=== PATIENT | female | born 1955 | race Caucasian/White ===

== ENCOUNTER → 2018-01-03 | Outpatient (CLI) | payer OTHER ==
[~2018-01-03] MED LIST: ACET-1138 PO; ASPI81TA28 PO; ATOR-24 PO; BUPRTAB PO; BUPRTAB51 PO; CLB200 PO; DYZ PO; EFFSR150 PO; ERGO500011 PO; GLUC15002 PO; LYSI100010 PO; MULT-506 PO; OMEP20CA9 PO; OXYSR10 PO; RXC5 PO; SNK PO; TEMA15CA4 PO
--- NOTE | 2018-01-06 14:50 | MAMMOGRAPHY REPORT ---
BILATERAL DIGITAL SCREENING MAMMOGRAM TOMOSYNTHESIS WITH CAD: 01/03/2018 CLINICAL HISTORY: Routine screening. TECHNIQUE: Breast tomosynthesis in addition to standard 2D mammography was performed. Current study was also evaluated with a Computer Aided Detection (CAD) system. COMPARISON: Comparison is made to exams dated: 08/21/2016 mammogram, 03/29/2015 mammogram, 01/04/2014 m ammogram, 10/10/2012 mammogram, 10/04/2011 mammogram, and 05/08/2010 mammogram - [facility]. BREAST COMPOSITION: There are scattered areas of fibroglandular density in both breasts. FINDINGS: No suspicious masses, calcifications, or areas of architectural distortion are noted in ei ther breast. There has been no significant interval change compared to prior exams. IMPRESSION: ACR BI-RADS CATEGORY 1: NEGATIVE There is no mammographic evidence of malignancy. A 1 year screening mammogram is recommended. The pa tient will receive written notification of the results. Approximately 10% of breast cancers are not detected with mammography. A negative mammographic report should not delay biopsy if a clinically suggestive mass is present. Cynthia Mitchell M.D. /:01/03/2018 15:21:24 [employer]: Doris JACOBS(Leslie)(M), [facility] letter sent: Normal 1/2 BI-RADS Code: ACR BI-RADS Category 1: Negative
== END | disposition home or self-care (01) ==
LOC: C.MAMM 14:32
PROVIDERS: ATTEND Family Medicine
DX: Z12.31 Encounter for screening mammogram for malignant neoplasm of breast (principal)

== ENCOUNTER 2020-03-19 18:59 | Inpatient (IN) ==
[2020-03-19] MEDS ORDERED: OPTIRAY 320 125ml IV PRN (19:35)
[2020-03-19 19:36] LABS: Basophils # (auto) 0.09 K/uL (0-0.2); Eosinophils # (auto) 0.23 K/uL (0-0.5); Eosinophils % (auto) 2.6 %; Hematocrit (blood only) 41.1 % (37-47); Hemoglobin 13.8 g/dL (12.0-16.0); Immature Granulocytes # (auto) 0.01 K/uL (0.00-0.02); Immature Granulocytes % (auto) 0.1 %; Lymphocytes # (auto) 3.44 K/uL (1.2-3.4); Lymphocytes % (auto) 38.7 %; Mean Corpuscular Hemoglobin 33.3 pg (25-34); Mean Corpuscular Hgb Conc 33.6 g/dL (32-36); Mean Corpuscular Volume 99.3 fL (80-100); Mean Platelet Volume 8.9 fL (7.4-10.4); Monocytes # (auto) 0.62 K/uL (0.11-0.59); Neutrophils # (auto) 4.51 K/uL (1.4-6.5); Neutrophils % (auto) 50.6 %; Platelet Count 367 K/uL (130-400); RDW Coefficient of Variation 13.3 % (11.5-14.5); RDW Standard Deviation 48.2 fL (36.4-46.3); Red Blood Count 4.14 M/uL (4.2-5.4)
[2020-03-19 19:43] LABS: INR 0.9 (0.9-1.1); Partial Thromboplastin Ratio 1.2; Partial Thromboplastin Time 32.2 Seconds (21.0-31.0); Prothrombin Time 9.9 Seconds (9.0-12.0)
[2020-03-19 19:45] LABS: Alanine Aminotransferase 28 U/L (12-78); Albumin Level 4.1 gm/dl (3.4-5.0); Aspartate Aminotransferase 11 U/L (15-37); BUN Creatinine Ratio 20.9 (10-20); Blood Urea Nitrogen 25 mg/dl (7-18); Calcium 8.7 mg/dl (8.5-10.1); Carbon Dioxide 27 mmol/L (21-32); Chloride 108 mmol/L (98-107); Creatinine Clr Calc Pharmacy 53.1 ml/min; Est GFR (African American) 54.6; Est GFR (Non-African American) 47.1; Glucose 66 mg/dl (70-99); Magnesium 2.4 mg/dl (1.8-2.4); Potassium 3.7 mmol/L (3.5-5.1); Sodium 141 mmol/L (136-145)
--- NOTE | 2020-03-19 19:47 | CT Scan Report ---
CT head/brain wo con CLINICAL HISTORY: Stroke evaluation RIGHT FACIAL DROOP. DIFFICULTY SPEAKING. COMPARISON STUDY: No previous studies for comparison. TECHNIQUE: Axial CT of the brain is performed from the vertex to the skull base. IV contrast was not administered for this examination. A dose lowering technique was utilized adhering to the principles of ALARA. CT DOSE: FINDINGS: No intra or extra-axial mass lesions are visualized. There is no CT evidence of acute cortical infarc tion. There is no evidence of midline shift. There is no acute hemorrhage. No calvarial fractures ar e visualized. There are patchy white matter hypodensities likely on a small vessel basis. There is no evidence of pathologic ventricular dilatation. There is no evidence of acute sinusitis IMPRESSION: No acute intracranial findings ACT 112: Negative or not required by law. Electronically signed by: Carlton Nieto M.D. 03/19/2020 7:45 PM
[2020-03-19 19:50] LABS: Albumin Globulin Ratio 1.1 (0.9-2); Alkaline Phosphatase 97 U/L (45-117); Bilirubin,Total 0.2 mg/dl (0.2-1); Globulin 3.7 gm/dl (2.5-4.0); Total Protein 7.8 gm/dl (6.4-8.2); Troponin I < 0.015 ng/ml (0-0.045)
--- NOTE | 2020-03-19 19:50 | CT Scan Report ---
CT angio head w con CLINICAL HISTORY: Stroke evaluation TECHNIQUE: CT angiography of the head was performed in a dynamic helical fashion during intravenous a dministration of 117 cc of Optiray 320. MIP imaging was performed. A dose lowering technique was util ized adhering to the principles of ALARA. CT DOSE: COMPARISON STUDY: No previous studies for comparison. FINDINGS: There are no lesion suspicious for aneurysm. There are no major intracranial branch occlusi ons. The dural venous sinuses appear patent. IMPRESSION: Unremarkable CT angiography of the brain. ACT 112: Negative or not required by law. Electronically signed by: Carlton Nieto M.D. 03/19/2020 7:49 PM
[2020-03-19] MEDS ORDERED: METOCLOPRAMIDE HCL INJ 5 MG/ML 2 ML VIAL IV ONE (19:58)
[2020-03-19] MEDS ORDERED: DiphenhydrAMINE HCL 50 MG/ML VIAL IV STA (19:58)
--- NOTE | 2020-03-19 19:58 | CT Scan Report ---
CT angio neck with con CLINICAL HISTORY: Acute stroke. Right-sided facial droop. Difficulty with speech. COMPARISON STUDY: No previous studies for comparison. TECHNIQUE: CT angiography was performed from the aortic arch to the skull base. MIP imaging was perfo rmed. The patient was scanned in a dynamic helical fashion during intravenous administration of 117 c c of Optiray 320. A dose lowering technique was utilized adhering to the principles of ALARA. CT DOSE: 1045.74 mGy.cm Technique: CT angiogram of the carotid and vertebral arteries was obtained using intravenous contrast and 3-D reconstruction. NASCET criteria was utilized. Findings: There are apical pulmonary blebs present. The right carotid revealed no evidence of aneurysm and no evidence of dissection. There is no evidenc e of hemodynamic significant stenosis. The left carotid revealed no evidence of hemodynamic significant stenosis. There is no evidence of an eurysm. There is no evidence of dissection. There is no evidence of vertebral artery occlusion or dissection. There is mild nonhemodynamically si gnificant left vertebral artery narrowing at the C5 level due to facet joint arthropathy. IMPRESSION: No evidence of hemodynamically significant carotid or vertebral artery stenosis. No evidence of disse ction. ACT 112: Negative or not required by law. Electronically signed by: Carlton Nieto M.D. 03/19/2020 7:56 PM
--- NOTE | 2020-03-19 20:25 | XRay Report ---
XR chest 1V portable CLINICAL HISTORY: Acute stroke COMPARISON STUDY: 05/28/2016 FINDINGS: The heart is mildly enlarged. There is no failure. There is no focal pulmonary consolidatio n. There is minor left midlung zone atelectasis/scarring. No pleural effusions are visualized.[ IMPRESSION: No active disease in the chest. ACT 112: Negative or not required by law. Electronically signed by: Carlton Nieto M.D. 03/19/2020 8:24 PM
[2020-03-19] MEDS ORDERED: PHARMACIST DISCHARGE MED REC CONSULT PRN (21:32)
[2020-03-19] MEDS ORDERED: ONDANSETRON INJ 2 MG/ML 2 ML VIAL IV PRN (21:32)
[2020-03-19] MEDS ORDERED: NITROGLYCERIN SL 0.4 MG/TAB TAB SL PRN (21:32)
[2020-03-19] MEDS ORDERED: ROSUVASTATIN CALCIUM 5 MG TAB PO SCH (21:32)
[2020-03-19] MEDS ORDERED: CLOPIDOGREL BISULFATE 75 MG TAB PO ONE (21:32)
[2020-03-19] MEDS ORDERED: FLUTICASONE PROPIONATE NA SPR 16 GM BTL PRN (21:32)
[2020-03-19] MEDS ORDERED: ACETAMINOPHEN 325 MG TAB PO PRN (21:32)
--- NOTE | 2020-03-19 22:29 | History and Physical Report ---
DATE OF ADMISSION: 03/19/2020 CHIEF COMPLAINT: Slurred speech. 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 The patient says she noticed the slurred speech around 1:30 p.m. her colleagues told her to go to the ER and she came here in the evening and stroke alert was called. Apart from the mild slurred speech and some left facial droops, otherwise, no other symptoms. CT of the head was unremarkable. CTA of the head and neck were also okay. Because of out of the window no TPA was not given. Currently, patient is resting comfortably and hemodynamically stable. She complains of a headache. Denies any blurred vision, no earache, no runny nose, no sore throat, no cough, no chest pain, no shortness of breath, no fever, no chills, no sick contacts, no contact with COVID patients. No loss of smell or taste. No travel history. No nausea, no abdominal pain. Normal bowel and bladder movements. No hematuria or burning micturition, no black or blood in stools. No rash, no swelling in the legs. Otherwise, active. ALLERGIES: No known drug allergies. PAST MEDICAL HISTORY: As mentioned above. PAST SURGICAL HISTORY: , colonoscopy with biopsy, ligation of oviducts, right total knee replacement. MEDICATIONS: The patient is on aspirin 81 mg p.o. q.a.m., Tylenol 1000 mg p.o. q. 6 hours p.r.n., bupropion 300 mg p.o. a.m. and bupropion 150 mg p.o. a.m., vitamin D 50,000 units p.o. weekly, Flonase 2 sprays intranasal daily p.r.n., Ativan 0.5 mg p.o. t.i.d. p.r.n., lysine 500 mg p.o. a.m., multivitamins 1 tablet a.m., omeprazole 40 mg p.o. a.m., Crestor 5 mg p.o. at bedtime, temazepam 30 mg p.o. at bedtime, tramadol 50 mg p.o. q. 6 hours p.r.n., triamterene/hydrochlorothiazide 37.5/25 mg 1 tablet daily, valacyclovir 2000 mg p.o. q. 12 hours p.r.n., venlafaxine 150 mg p.o. at bedtime. FAMILY HISTORY: Significant for her mother has dementia, thyroid disorder, hypertension, stroke. Father has OK. Sister has diabetes, heart disorder, kidney disease. SOCIAL HISTORY: Lives alone, . Smokes 1 pack a day for the last 25 years. No alcohol use, no drug use. REVIEW OF SYMPTOMS: As per HPI. Rest of review of symptoms are negative. PHYSICAL EXAMINATION: GENERAL: The patient is obese, not in acute distress. VITAL SIGNS: Temperature 36.9, pulse 96, respiratory rate 18, blood pressure 142/79, oxygen 95% on room air. HEENT: No pallor, no icterus. Pupils equal, round, and reactive to light. NECK: No JVD, no neck masses, no carotid bruits. CARDIOVASCULAR: S1, S2 heard, regular rate and rhythm, no murmur, no gallop. RESPIRATORY SYSTEM: Normal AP diameter. No accessory muscle use. No wheezing, no crackles. ABDOMEN: Soft, bowel sounds present, nontender. No distention. CENTRAL NERVOUS SYSTEM: Alert and oriented. Extraocular muscles intact. Slight left facial droop. Speech mild dysarthria present. Power 5/5 in all extremities. No pronator drift. Coordination of movements normal. [id number] test normal. Sensation is intact. Position sense intact. EXTREMITIES: No edema, no erythema. LABORATORY DATA: WBC 8.9, hemoglobin 13.8, hematocrit 41.1, platelets 367. PT 9.9, INR 0.9, APTT 32.2. Sodium 141, potassium 3.7, chloride 108, bicarbonate 27, BUN 25, creatinine 1.2, serum glucose 66, calcium 8.7, magnesium 2.4, total bilirubin 0.2, AST 11, ALT 28, alkaline phosphatase 97. Troponin I less than 0.015. Chest x-ray: No acute disease in the chest. EKG: Normal sinus rhythm, rate of 96, nonspecific T-wave abnormality, no acute ST changes seen. IMAGING: CT of the head, no acute intracranial findings. Head CTA unremarkable CT angiogram of the brain. Neck CTA, no evidence of hemodynamically significant carotid or vertebral artery stenosis. No evidence of aortic dissection. ASSESSMENT AND PLAN: A 65-year-old female presents with stroke like symptoms. 1. Possible acute stroke with dysarthria and mild left facial droop: Initial workup with CTA of the head and neck are unremarkable. The patient's symptoms started at 1:30 so she is out of the window for TPA. She is already on aspirin, which we will continue and also add Plavix. We will do full stroke workup with MRI scan, lipid profile, HbA1c level. Echocardiogram. Monitor in tele floor. Speech evaluation, PT, OT evaluation, consult neurology in a.m. for further recommendations. The patient was slightly hypoglycemic when she came in. We will monitor the blood sugars. 2. Acute kidney injury: Presently with a creatinine of 1.2, BUN 25, baseline creatinine 0.9-1.0 in outpatient labs. Getting fluids. We will follow the labs in a.m. 3. Mild sleep apnea. CPAP at bedtime. 4. Hypertension. We will allow for permissive hypertension. For now will hold home medication of Maxzide. 5. Gastroesophageal reflux disease: Continue PPI. 6. Hyperlipidemia. Continue Crestor. We will follow the fasting lipid profile. 7. Obesity. Needs counseling. 8. Major depression, tobacco abuse. Needs counseling. Continue home medication of venlafaxine and Wellbutrin. 9. Deep venous thrombosis prophylaxis, sequential compression devices for now. 10. Disposition: Closely monitor on the tele floor. Level 1 full code. PT and OT prior to discharge. Social Service to help with discharge planning. [facility]
[2020-03-19] MEDS: SODIUM CHLORIDE 0.9% 1000ML 1,000 ML IV SCH (22:33)
[2020-03-19] MEDS: VENLAFAXINE HCL XR 150 MG CAPXR PO SCH (22:34)
[2020-03-19] MEDS: TEMAZEPAM 15 MG CAPSULE PO SCH (22:35)
--- NOTE | 2020-03-19 23:49 | Emergency Department Note ---
History of Present Illness General Chief complaint: Neuro Symptoms/Deficit Stated complaint: STROKE SX Time Seen by Provider: 03/19/20 19:25 History of Present Illness Provider complaint: Headache and slurred speech Onset (ago): hour(s) 6 Location: head Maximum Pain Intensity: 4 65-year-old female presents the emergency department with headache and slurred speech. 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 She denies any chest pain, difficulty breathing, nausea, vomiting, fever, trauma, anosmia, or loss of taste. She is not on any blood thinners. No history of stroke. Home Medications Home Medications Medication Instructions Recorded Confirmed Type acetaminophen 1,000 mg PO Q6H PRN 03/19/20 03/19/20 History aspirin 81 mg PO QAM 03/19/20 03/19/20 History bupropion HCl 150 mg PO QAM 03/19/20 03/19/20 History bupropion HCl 300 mg PO QAM 03/19/20 03/19/20 History ergocalciferol (vitamin D2) 50,000 unit PO WK 03/19/20 03/19/20 History fluticasone propionate 2 spray INTRANASAL DAILY PRN 03/19/20 03/19/20 History lorazepam 0.5 mg PO TID PRN 03/19/20 03/19/20 History lysine 500 mg PO QAM 03/19/20 03/19/20 History [id number]-Ca carb-vit K 1 tab PO QA 03/19/20 03/19/20 History [Women's Multivitamin] omeprazole 40 mg PO QAM 03/19/20 03/19/20 History rosuvastatin 5 mg PO HS 03/19/20 03/19/20 History temazepam 30 mg PO HS 03/19/20 03/19/20 History tramadol 50 mg PO Q6H PRN 03/19/20 03/19/20 History triamterene-hydrochlorothiazid 1 tab PO QAM 03/19/20 03/19/20 History valacyclovir 2,000 mg PO Q12H PRN 03/19/20 03/19/20 History venlafaxine 150 mg PO HS 03/19/20 03/19/20 History Allergies Allergy/AdvReac Type Severity Reaction Status Date / Time phenylephrine AdvReac Unknown Palpitation Verified 03/19/20 20:43 s Past Med/Surg History Medical History (Updated 03/19/20 @ 23:50 by Dontrell Farnsworth) Depression (Chronic) HTN (hypertension) (Chronic) No pertinent family history Surgical History (Updated 03/19/20 @ 23:42 by Dontrell Farnsworth) H/O section (Chronic) Social History Preferred Language: Maltese Communication Ability: Effective Clinical Program Coordinator Required: No Beliefs That Will Affect Care: None Current Living Situation: Alone Other Information That Helps Us Care for You: No Feels Safe at Home: Yes Safety Concerns: Feels Safe At This Time Smoking Status: Current every day smoker Tobacco Type: cigarettes ; Cigarettes Per Day: 10 ; Do You Dip or Chew Tobacco: No ; Second Hand Exposure: No ; Tobacco Cessation Education Requested by Patient: No Hx Alcohol Use: No Hx Substance Use: No Review of Systems A total of 10 systems reviewed and were otherwise negative Physical Exam Vital Signs Vital Signs - 24 hr 03/19/20 19:11 03/19/20 19:30 03/19/20 19:46 Temperature 36.9 C Temperature Source Oral Pulse Rate 93 H 91 H 96 H Pulse Rate from SpO2 Sensor 89 95 H Respiratory Rate 20 21 21 Respiratory Effort / Characteristics Non-Labored Respiratory Depth Normal Blood Pressure 127/77 139/80 142/79 H Blood Pressure Mean 93 107 96 Pulse Oximetry 95 93 96 Oxygen Delivery Method Room Air Room Air Room Air Sepsis Recent Fever Within 48 Hours No Sepsis New/Unexplained Change in Mental Status No Sepsis Action Taken by Nursing No Action Required 03/19/20 19:50 03/19/20 19:56 03/19/20 20:00 Temperature Temperature Source Pulse Rate 93 H 90 Pulse Rate from SpO2 Sensor 90 Respiratory Rate 16 21 Respiratory Effort / Characteristics Respiratory Depth Blood Pressure 133/72 136/84 Blood Pressure Mean 77 103 Pulse Oximetry 95 96 Oxygen Delivery Method Room Air Sepsis Recent Fever Within 48 Hours Sepsis New/Unexplained Change in Mental Status Sepsis Action Taken by Nursing 03/19/20 20:15 03/19/20 20:30 03/19/20 20:45 Temperature Temperature Source Pulse Rate 90 87 84 Pulse Rate from SpO2 Sensor 89 84 Respiratory Rate 22 18 21 Respiratory Effort / Characteristics Respiratory Depth Blood Pressure 131/76 139/82 132/73 Blood Pressure Mean 94 92 89 Pulse Oximetry 95 97 Oxygen Delivery Method Sepsis Recent Fever Within 48 Hours Sepsis New/Unexplained Change in Mental Status Sepsis Action Taken by Nursing Physical Exam GENERAL: She is oriented to person, place, and time. She appears well-developed and well-nourished. She does not appear distressed. HENT: Exam performed. -Head: Normocephalic and atraumatic. -Right Ear: External ear normal. No mastoid tenderness. -Left Ear: External ear normal. No mastoid tenderness. -Mouth/Throat: The oropharynx is clear and moist. No trismus in the jaw. No dental abscesses or uvula swelling. No oropharyngeal exudate or tonsillar abscesses. EYES: Conjunctivae and EOM are normal. Pupils are equal, round, and reactive to light. Right eye exhibits no discharge. Left eye exhibits no discharge. No scleral icterus. NECK: Normal range of motion. Neck supple. No JVD present. No spinous process tenderness present. No carotid bruit present. No rigidity. No tracheal deviation and normal range of motion present. No Brudzinski's sign and no Kernig's sign noted. CV: Normal rate, regular rhythm, normal heart sounds and intact distal pulses. There is no peripheral edema. Palpable radial pulses bue. PULM/CHEST: Effort normal and breath sounds normal. No respiratory distress. No stridor. She has no wheezes. She has no rales. -Chest Wall: She exhibits no tenderness. ABD: The abdomen is soft. Bowel sounds are normal. She has no distension. No mass is present. There is no tenderness. There is no rebound, no guarding, no Aparicio's sign and no tenderness at McBurney's point. Rovsig negative MUSC/SKEL: Normal range of motion. There is no peripheral edema, tenderness or deformity. LYMPH: No cervical adenopathy. NEURO: NIHSS: 3 (facial droop 2, dysarthria 1) SKIN: Skin is warm and dry. She is not diaphoretic. PSYCH: She has a normal mood and affect. Behavior is normal. Judgment and thought content normal. Course Course 1927: The patient was evaluated in room C9. A complete history and physical exam was performed. Patient has NIH stroke scale of 3, facial droop and dysarthria. Code stroke was called. 1938: Discussed with [place] tele-stroke Dr. Ambrose who states that the patient is out of the TPA window and her NIH stroke scale is too low to be considered for endovascular therapy. She states that if the CTAs show any significant occlusion to call her back and she will evaluate the patient but at this time she recommends no TPA and no endovascular intervention. 2009: Vital signs stable. Labs and imaging within normal limits. Patient reports her headache is improved with Reglan and Benadryl. Patient does still have facial droop and dysarthria. Is thought that she had a stroke. Patient will be admitted to the [facility] team. Dr. Dutta agrees to admission. Administered Medications Sodium Chloride (Nss 1000ml) 1,000 mls @ 80 mls/hr IV .[id number] REJI Stop: 03/20/20 16:59 Last Admin: 03/19/20 22:33 Dose: 80 mls/hr Documented by: [id number] Rosuvastatin Calcium (Crestor) 5 mg PO HS REJI Stop: 04/18/20 21:31 Last Admin: 03/19/20 22:34 Dose: Not Given Documented by: [id number] Temazepam (Restoril) 30 mg PO HS REJI Stop: 04/18/20 21:31 Last Admin: 03/19/20 22:35 Dose: Not Given Documented by: [id number] Venlafaxine HCl (Effexor Extended Release) 150 mg PO HS REJI Stop: 04/18/20 21:31 Last Admin: 03/19/20 22:34 Dose: Not Given Documented by: [id number] Discontinued Medications Clopidogrel Bisulfate (Plavix) 75 mg PO NOW ONE Stop: 03/19/20 21:33 Last Admin: 03/19/20 22:34 Dose: Not Given Documented by: [id number] Diphenhydramine HCl (Benadryl) 25 mg IV NOW STA Stop: 03/19/20 19:59 Last Admin: 03/19/20 20:03 Dose: 25 mg Documented by: [id number] Ioversol (Optiray 320 125ml) 117 ml IV ONCE PRN PRN Reason: Interaction Checking Stop: 03/23/20 19:34 Last Admin: 03/19/20 19:35 Dose: 117 ml Documented by: [id number] Metoclopramide HCl (Reglan) 5 mg IV ONE ONE Stop: 03/19/20 19:59 Last Admin: 03/19/20 20:03 Dose: 5 mg Documented by: [id number] Critical Care Time Critical Care Time: Yes Total Critical Care Time: 40 I have personally spent greater than 40 minutes of critical care time in the direct management of this patient. This includes bedside care, interpretation of diagnostic studies, and testing, discussion with consultants, patient, and family members, and other required patient management activities. This 40 minutes is in excess of all separately billable procedures. Medical Decision Making Laboratory Data Result diagrams: 03/19/20 18:43 03/19/20 18:43 Lab Results 03/19/20 03/19/20 03/19/20 Range/Units 18:43 18:43 18:43 WBC 8.90 (4.8-10.8) K/uL RBC 4.14 L (4.2-5.4) M/uL Hgb 13.8 (12.0-16.0) g/dL Hct 41.1 (37-47) % MCV 99.3 (80-100) fL MCH 33.3 (25-34) pg MCHC 33.6 (32-36) g/dL RDW Std Deviation 48.2 H (36.4-46.3) fL RDW Coeff of Eamon 13.3 (11.5-14.5) % Plt Count 367 (130-400) K/uL MPV 8.9 (7.4-10.4) fL Immature Gran % (Auto) 0.1 % Neut % (Auto) 50.6 % Lymph % (Auto) 38.7 % [place] % (Auto) 7.0 % Eos % (Auto) 2.6 % Baso % (Auto) 1.0 % Immature Gran # (Auto) 0.01 (0.00-0.02) K/uL Neut # (Auto) 4.51 (1.4-6.5) K/uL Lymph # (Auto) 3.44 H (1.2-3.4) K/uL [place] # (Auto) 0.62 H (0.11-0.59) K/uL Eos # (Auto) 0.23 (0-0.5) K/uL Baso # (Auto) 0.09 (0-0.2) K/uL PT 9.9 (9.0-12.0) Seconds INR 0.9 (0.9-1.1) APTT 32.2 H (21.0-31.0) Seconds PTT Ratio 1.2 Sodium 141 (136-145) mmol/L Potassium 3.7 (3.5-5.1) mmol/L Chloride 108 H (98-107) mmol/L Carbon Dioxide 27 (21-32) mmol/L Anion Gap 6.0 (3-11) BUN 25 H (7-18) mg/dl Creatinine 1.22 H (0.6-1.2) mg/dl Est Cr Clr Drug Dosing 53.1 ml/min Est GFR ( Amer) 54.6 Est GFR (Non-Af Amer) 47.1 BUN/Creatinine Ratio 20.9 H (10-20) Glucose 66 L (70-99) mg/dl POC Glucose (70-99) mg/dl Calcium 8.7 (8.5-10.1) mg/dl Magnesium 2.4 (1.8-2.4) mg/dl Total Bilirubin 0.2 (0.2-1) mg/dl AST 11 L (15-37) U/L ALT 28 (12-78) U/L Alkaline Phosphatase 97 (45-117) U/L Troponin I < 0.015 (0-0.045) ng/ml Total Protein 7.8 (6.4-8.2) gm/dl Albumin 4.1 (3.4-5.0) gm/dl Globulin 3.7 (2.5-4.0) gm/dl Albumin/Globulin Ratio 1.1 (0.9-2) Blood Type Antibody Screen 03/19/20 03/19/20 Range/Units 19:45 19:47 WBC (4.8-10.8) K/uL RBC (4.2-5.4) M/uL Hgb (12.0-16.0) g/dL Hct (37-47) % MCV (80-100) fL MCH (25-34) pg MCHC (32-36) g/dL RDW Std Deviation (36.4-46.3) fL RDW Coeff of Eamon (11.5-14.5) % Plt Count (130-400) K/uL MPV (7.4-10.4) fL Immature Gran % (Auto) % Neut % (Auto) % Lymph % (Auto) % [place] % (Auto) % Eos % (Auto) % Baso % (Auto) % Immature Gran # (Auto) (0.00-0.02) K/uL Neut # (Auto) (1.4-6.5) K/uL Lymph # (Auto) (1.2-3.4) K/uL [place] # (Auto) (0.11-0.59) K/uL Eos # (Auto) (0-0.5) K/uL Baso # (Auto) (0-0.2) K/uL PT (9.0-12.0) Seconds INR (0.9-1.1) APTT (21.0-31.0) Seconds PTT Ratio Sodium (136-145) mmol/L Potassium (3.5-5.1) mmol/L Chloride (98-107) mmol/L Carbon Dioxide (21-32) mmol/L Anion Gap (3-11) BUN (7-18) mg/dl Creatinine (0.6-1.2) mg/dl Est Cr Clr Drug Dosing ml/min Est GFR ( Amer) Est GFR (Non-Af Amer) BUN/Creatinine Ratio (10-20) Glucose (70-99) mg/dl POC Glucose 78 (70-99) mg/dl Calcium (8.5-10.1) mg/dl Magnesium (1.8-2.4) mg/dl Total Bilirubin (0.2-1) mg/dl AST (15-37) U/L ALT (12-78) U/L Alkaline Phosphatase (45-117) U/L Troponin I (0-0.045) ng/ml Total Protein (6.4-8.2) gm/dl Albumin (3.4-5.0) gm/dl Globulin (2.5-4.0) gm/dl Albumin/Globulin Ratio (0.9-2) Blood Type A Positive Antibody Screen NEGATIVE Imaging Data Radiologist's Impression: CT angio neck with con CLINICAL HISTORY: Acute stroke. Right-sided facial droop. Difficulty with speech. COMPARISON STUDY: No previous studies for comparison. TECHNIQUE: CT angiography was performed from the aortic arch to the skull base. MIP imaging was performed. The patient was scanned in a dynamic helical fashion during intravenous administration of 117 cc of Optiray 320. A dose lowering technique was utilized adhering to the principles of ALARA. CT DOSE: 1045.74 mGy.cm Technique: CT angiogram of the carotid and vertebral arteries was obtained using intravenous contrast and 3-D reconstruction. NASCET criteria was utilized. Findings: There are apical pulmonary blebs present. The right carotid revealed no evidence of aneurysm and no evidence of dissection. There is no evidence of hemodynamic significant stenosis. The left carotid revealed no evidence of hemodynamic significant stenosis. There is no evidence of aneurysm. There is no evidence of dissection. There is no evidence of vertebral artery occlusion or dissection. There is mild nonhemodynamically significant left vertebral artery narrowing at the C5 level due to facet joint arthropathy. IMPRESSION: No evidence of hemodynamically significant carotid or vertebral artery stenosis. No evidence of dissection. ACT 112: Negative or not required by law. Electronically signed by: Carlton Nieto M.D. 03/19/2020 7:56 PM Dictated: 03/19/201949 Transcribed: 03/19/201949 CT angio head w con CLINICAL HISTORY: Stroke evaluation TECHNIQUE: CT angiography of the head was performed in a dynamic helical fashion during intravenous administration of 117 cc of Optiray 320. MIP imaging was performed. A dose lowering technique was utilized adhering to the principles of ALARA. CT DOSE: COMPARISON STUDY: No previous studies for comparison. FINDINGS: There are no lesion suspicious for aneurysm. There are no major in tracranial branch occlusions. The dural venous sinuses appear patent. IMPRESSION: Unremarkable CT angiography of the brain. ACT 112: Negative or not required by law. Electronically signed by: Carlton Nieto M.D. 03/19/2020 7:49 PM Dictated: 03/19/201945 Transcribed: 03/19/201947 CT head/brain wo con CLINICAL HISTORY: Stroke evaluation RIGHT FACIAL DROOP. DIFFICULTY SPEAKING. COMPARISON STUDY: No previous studies for comparison. TECHNIQUE: Axial CT of the brain is performed from the vertex to the skull base. IV contrast was not administered for this examination. A dose lowering technique was utilized adhering to the principles of ALARA. CT DOSE: FINDINGS: No intra or extra-axial mass lesions are visualized. There is no CT evidence of acute cortical infarction. There is no evidence of midline shift. There is no acute hemorrhage. No calvarial fractures are visualized. There are patchy white matter hypodensities likely on a small vessel basis. There is no evidence of pathologic ventricular dilatation. There is no evidence of acute sinusitis IMPRESSION: No acute intracranial findings ACT 112: Negative or not required by law. Electronically signed by: Carlton Nieto M.D. 03/19/2020 7:45 PM Dictated: 03/19/201943 Transcribed: 03/19/201943 XR chest 1V portable CLINICAL HISTORY: Acute stroke COMPARISON STUDY: 05/28/2016 FINDINGS: The heart is mildly enlarged. There is no failure. There is no focal pulmonary consolidation. There is minor left midlung zone atelectasis/scarring. No pleural effusions are visualized.[ IMPRESSION: No active disease in the chest. ACT 112: Negative or not required by law. Electronically signed by: Carlton Nieto M.D. 03/19/2020 8:24 PM Dictated: 03/19/202022 Transcribed: 03/19/202022 ECG Data Rate (beats per minute): 96 Rhythm: + normal sinus ECG Intervals/blocks: + Normal QRS, + Normal VT and + Normal QT-c ECG ST segments: + Normal ST segments MDM Narrative 1927: The patient was evaluated in room C9. A complete history and physical exam was performed. Patient has NIH stroke scale of 3, facial droop and dysarthria. Code stroke was called. 1938: Discussed with [place] tele-stroke Dr. Ambrose who states that the patient is out of the TPA window and her NIH stroke scale is too low to be considered for endovascular therapy. She states that if the CTAs show any significant occlusion to call her back and she will evaluate the patient but at this time she recommends no TPA and no endovascular intervention. 2009: Vital signs stable. Labs and imaging within normal limits. Patient reports her headache is improved with Reglan and Benadryl. Patient does still have facial droop and dysarthria. Is thought that she had a stroke. Patient will be admitted to the [facility] team. Dr. Dutta agrees to admission. Impression & Plan Stroke Discharge Plan Visit Data *Final* Discharge Date/Time: 03/19/20 21:30 Chief Complaint: Neuro Symptoms/Deficit Stated Complaint: STROKE SX ED Provider: Dontrell Farnsworth Discharge Problem: Stroke Patient Disposition: Admitted As Inpatient Discharge Instructions Interventions: ED Discharge Assessment Last Done: 03/19/20 21:30 Discharge Problem: Stroke Qualifiers: CVA mechanism: unspecified Qualified Code(s): I63.9 - Cerebral infarction, unspecified
[2020-03-19] MEDS ORDERED: LORazepam 0.25 MG/0.5 ML VIAL IV STA (23:50)
[2020-03-20] MEDS ORDERED: LORazepam 0.25 MG/0.5 ML VIAL IV STA (01:10)
[2020-03-20] MEDS ORDERED: GADOBUTROL 10ML VIAL IV PRN (01:11)
[2020-03-20 04:21] LABS: Basophils # (auto) 0.07 K/uL (0-0.2); Basophils % (auto) 0.9 %; Eosinophils # (auto) 0.25 K/uL (0-0.5); Eosinophils % (auto) 3.1 %; Hematocrit (blood only) 36.5 % (37-47); Hemoglobin 12.1 g/dL (12.0-16.0); Immature Granulocytes # (auto) 0.02 K/uL (0.00-0.02); Immature Granulocytes % (auto) 0.2 %; Lymphocytes # (auto) 3.19 K/uL (1.2-3.4); Lymphocytes % (auto) 39.8 %; Mean Corpuscular Hemoglobin 32.5 pg (25-34); Mean Corpuscular Hgb Conc 33.2 g/dL (32-36); Mean Corpuscular Volume 98.1 fL (80-100); Mean Platelet Volume 8.8 fL (7.4-10.4); Monocytes # (auto) 0.62 K/uL (0.11-0.59); Monocytes % (auto) 7.7 %; Neutrophils # (auto) 3.87 K/uL (1.4-6.5); Neutrophils % (auto) 48.3 %; Platelet Count 270 K/uL (130-400); RDW Coefficient of Variation 13.3 % (11.5-14.5); Red Blood Count 3.72 M/uL (4.2-5.4); White Blood Count 8.02 K/uL (4.8-10.8)
[2020-03-20 04:43] LABS: BUN Creatinine Ratio 22.8 (10-20); Calcium 8.1 mg/dl (8.5-10.1); Creatinine Clr Calc Pharmacy 67.4 ml/min; Est GFR (African American) 74.8; Est GFR (Non-African American) 64.6; Potassium 3.7 mmol/L (3.5-5.1)
--- NOTE | 2020-03-20 07:08 | Magnetic Resonance Report ---
Brain MRI WITH AND WITHOUT CONTRAST HISTORY: Left-sided weakness. Left facial droop. TECHNIQUE: Multiplanar multisequence MRI of the brain was performed both before and after the intrave nous administration of contrast. COMPARISON STUDY: Head CT 03/19/2020. FINDINGS: There are few small foci of restricted diffusion to within the right posterior frontal lobe , right parietal lobe, right occipital lobe, and right basal ganglia consistent with acute infarcts. There are 2 punctate foci of restricted diffusion seen within the left occipital lobe also consistent with acute infarcts. The midline structures are intact. Paranasal sinuses and mastoid air cells are clear. The major vascular flow-voids at the skull base are well-maintained. The ventricles and sulci are within normal limits. There is no mass, hematoma or midline shift. No abnormal enhancement. The p aranasal sinuses and mastoid air cells are clear. Periventricular white matter T2 hyperintensity is n onspecific but favors mild microvascular ischemic change. Small scattered areas of edema associated w ith the infarct. IMPRESSION: Multiple scattered small infarcts seen within the brain, right greater than left, as described above. ACT 112: Negative or not required by law. Electronically signed by: Kris Green M.D. 03/20/2020 7:06 AM
[2020-03-20] MEDS ORDERED: INFLUENZA VIRUS QUAD VACCINE 0.5 ML SYR IM ONE (09:00)
[2020-03-20] MEDS ORDERED: INFLUENZA ADMINISTRATION CHARGE ONE (09:00)
[2020-03-20] MEDS ORDERED: TRIAMTERENE/HCTZ 37.5/25MG TAB PO SCH (09:00)
[2020-03-20] MEDS ORDERED: NON-FORMULARY MEDICATION (Lysine 500 MG) PO SCH (09:00)
--- NOTE | 2020-03-20 09:49 | Electrocardiogram Report ---
Test Reason : Blood Pressure : / mmHG Vent. Rate : 096 BPM Atrial Rate : 096 BPM P-R Int : 144 ms QRS Dur : 086 ms QT Int : 350 ms P-R-T Axes : 046 -28 046 degrees QTc Int : 442 ms Normal sinus rhythm Normal ECG When compared with ECG of 28-MAY-2016 11:07, Nonspecific T wave abnormality has replaced inverted T waves in Inferior leads Confirmed by Dakotah London ([id number]) on 03/20/2020 9:49:13 AM Referred By: REFERRED SELF Confirmed By:Dakotah London
[2020-03-20 10:44] LABS: Influenza A virus by PCR Neg for Influ A (Neg); Influenza B virus by PCR Neg for Influ B (Neg)
--- NOTE | 2020-03-20 10:45 | Communication Note ---
Date of Service: March 20, 2020 Niya is 65 years old, is a patient of Dr. Praneeth Hennessy, has some hypertension, modestly over nourished, low-grade depression and has a history of some palpitations but has, prior to today, no neurologic complaints and actually had a ZIO Patch monitoring study done perhaps a years ago which showed only short runs of supraventricular tachycardia. 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 She does not recall being a direct contact with some. Yesterday she noticed that her speech was slurred when she was trying to "sing along with the radio" and when she arrived at work her coworkers noted her to have dysarthria prompting the visit to our local emergency room, calling of the [place] stroke team who felt appropriately too much time had elapsed to consider to be a TPA candidate but recommended appropriate testing which thus far has included an essentially normal CT angiography of the head and neck and a normal echocardiogram along with a normal CT but with an abnormal MRI showing evidence for several areas of infarction in the distribution of the right middle cerebral artery implicating embolic events for which we clearly do not see a source on the angiography studies or on the echo On exam she is alert cooperative oriented in 3 spheres but does have a slight articulatory disturbance/dysarthria without any word finding deficits neologisms paraphasias etc., has a very subtle left facial asymmetry and perhaps a minimal drift of the left arm without a loss of facility and without any weakness of the left leg, actual motor weakness, sensory loss, visual field disturbance or pathologic reflexes She was on aspirin as a daily medication and Plavix has been added. Thus far monitoring has revealed no atrial fibrillation and the echocardiogram is normal I have discussed his case with Dr. Tejada and at this point I am going to recommend that she be held for another 24 hours, her cardiac rhythm be monitored, and she be observed for recurrent events. If she remains without new issues and her deficits are as minor as they are now or even have improved and I think she could be discharged to home and probably will even need therapy in the form of speech occupational or physical but perhaps they should assess her while she is here in the hospital just for sake of completeness She will need another ZIO Patch on an outpatient basis if further monitoring does not reveal atrial fibrillation and we can arrange to have this done through the [facility] neurology offices where she will need to be seen in follow-up in about 3 weeks on the dual antiplatelet program of Plavix and aspirin Her other risk factors will need to be addressed by her primary care physician as they already have been and her LDL should be dropped into the lower ranges if possible, her blood pressure managed, her weight monitor etc. From a neurologic point of view we will probably simply continue her Plavix after stopping the aspirin in 3 weeks time but obviously if atrial fibrillation is found then an alternative anticoagulation program will need to be started and cardiology and her primary care will have to address this At this point I am going to sign off the case and not make another visit unless things would change and I have discussed my recommendations with Dr. Tejada and will leave this note to document the Avery Martinez MD The above note was created using the [employer] dictation system and may have typographical errors, punctuation errors etc.
[2020-03-20] MEDS: ASPIRIN 81 MG ECTAB PO SCH (10:50)
[2020-03-20] MEDS: CLOPIDOGREL BISULFATE 75 MG TAB PO SCH (10:51)
[2020-03-20] MEDS: CEROVITE ADV FORMULA TAB PO SCH (10:51)
[2020-03-20] MEDS: BuPROPion XL 150 MG TABCR PO SCH (10:51)
[2020-03-20] MEDS: BuPROPion XL 300 MG TABCR PO SCH (10:52)
[2020-03-20] MEDS: PANTOprazole 40 MG TAB PO SCH (10:53)
[2020-03-20] MEDS: SODIUM CHLORIDE 0.9% 1000ML 1,000 ML IV SCH (11:04)
--- NOTE | 2020-03-20 12:02 | Hospitalist Progress Note ---
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 -Brain MRI "There are few small foci of restricted diffusion to within the right posterior frontal lobe, right parietal lobe, right occipital lobe, and right basal ganglia consistent with acute infarcts. There are 2 punctate foci of restricted diffusion seen within the left occipital lobe also consistent with acute infarcts. The midline structures are intact. Paranasal sinuses and mastoid air cells are clear. The major vascular flow-voids at the skull base are well- maintained. The ventricles and sulci are within normal limits. There is no mass, hematoma or midline shift. No abnormal enhancement. The paranasal sinuses and mastoid air cells are clear. Periventricular white matter T2 hyperintensity is nonspecific but favors mild microvascular ischemic change. Small scattered areas of edema associated with the infarct. IMPRESSION: Multiple scattered small infarcts seen within the brain, right greater than left" -as per neurology consult: the MRI evidence of several areas of infarction in the distribution of the right middle cerebral artery implicating embolic events -patient was outside of the window for TPA for acute stroke and has been started on aspirin and clopidogrel -echocardiogram with normal ejection fraction and there is no atrial septal defect -currently telemetry is normal sinus and rhythm -as per neurology Dr. Martinez: patient will need another ZIO Patch on an outpatient basis if further monitoring does not reveal atrial fibrillation and we can arrange to have this done through the [facility] neurology offices where she will need to be seen in follow-up in about 3 weeks on the dual antiplatelet program of Plavix and aspirin -on review of lipid panel, hospitalist have increased patient's rosuvastatin from 5 mg qhs to 20 mg qhs -continue to monitor as inpatient for now; PT/OT evaluations Obesity Hyperlipidemia -on review of lipid panel, hospitalist have increased patient's rosuvastatin from 5 mg qhs to 20 mg qhs. target is for LDL to be less than 70 -patient may benefit with weight loss strategy of exercise and dieting and avoid tobacco products Acute kidney injury -baseline creatinine 0.9 to 1 in outpatient labs -admission creatinine of 1.2 -creatinine normalized after IV fluids Hypertension -admitting physician held home dose triamterene/HCTZ -may likely be resumed by 03/21/2020 as blood pressures being monitored closely Sleep Apnea -CPAP at bedtime. Gastroesophageal reflux disease -Continue PPI. Major depression Tobacco Use -on venlafaxine and Wellbutrin. -advise smoking cessation DVT prophylaxis: Lovenox 40 mg daily while inpatient Admission and Anticipated Discharge Date Admission Date: March 19, 2020 Subjective Patient seen at bedside. She has some mild left facial droop. She has bee assess by speech and swallow services. She does not not appear to be having difficulties with sipping water in front of medical doctor. Her voice is normal loudness and appears clear to medical physician. Patient appears to be equally strong on motor exam on both sides of upper and lower extremities when laying on the bed. The patient can ambulate in the room on room air, no shortness of breath, no chest pain. no palpitations. telemetry to date currently is toby sinus rhythm. no nausea. no vomiting. Review of Systems Review of Systems: All systems reviewed & are unremarkable except as noted in Subjective Physical Exam Constitutional: comfortable ENMT: mild left facial droop Neck: normal visual inspection Respiratory: normal respiratory effort, lungs clear to auscultation Cardiovascular: Rate/Rhythm: regular rate and regular rhythm Gastrointestinal (Abdomen): normal bowel sounds, soft, nontender, no hepatosplenomegaly Musculoskeletal: Head/Neck/Chest: normocephalic and head atraumatic Neurologic: Patient seen at bedside. She has some mild left facial droop. She has bee assess by speech and swallow services. She does not not appear to be having difficulties with sipping water in front of medical doctor. Her voice is normal loudness and appears clear to medical physician. Patient appears to be equally strong on motor exam on both sides of upper and lower extremities when laying on the bed. The patient can ambulate in the room Psychiatric: A+Ox3, euthymic affect Results & Data Results & Data ([facility]) Vital Signs (Past 12 Hours) Vital Signs Temp Pulse Pulse Resp BP Pulse Ox 03/20/20 07:50 78 03/20/20 04:00 36.5 C 75 20 138/87 97 03/20/20 01:22 73 18 96 (1) Stroke CVA mechanism: unspecified Qualified Code(s): I63.9 - Cerebral infarction, unspecified
[2020-03-20] MEDS: VENLAFAXINE HCL XR 150 MG CAPXR PO SCH (20:12)
[2020-03-20] MEDS ORDERED: ROSUVASTATIN CALCIUM 20 MG TAB PO SCH (21:00)
[2020-03-20] MEDS: TEMAZEPAM 15 MG CAPSULE PO SCH (22:33)
[2020-03-20] MEDS: TRAMADOL HCL 50 MG TABLET PO PRN (22:33)
[2020-03-20] MEDS: NICOTINE 14 MG/24 HR PATCH TD SCH (22:50)
[2020-03-21] MEDS: TRAMADOL HCL 50 MG TABLET PO PRN (04:12)
[2020-03-21 06:00] LABS: Basophils % (auto) 1.2 %; Eosinophils # (auto) 0.25 K/uL (0-0.5); Eosinophils % (auto) 3.1 %; Hematocrit (blood only) 37.3 % (37-47); Hemoglobin 12.3 g/dL (12.0-16.0); Immature Granulocytes # (auto) 0.02 K/uL (0.00-0.02); Immature Granulocytes % (auto) 0.2 %; Lymphocytes # (auto) 3.01 K/uL (1.2-3.4); Lymphocytes % (auto) 37.1 %; Mean Corpuscular Hemoglobin 32.5 pg (25-34); Mean Corpuscular Volume 98.4 fL (80-100); Monocytes # (auto) 0.54 K/uL (0.11-0.59); Monocytes % (auto) 6.7 %; Neutrophils % (auto) 51.7 %; Platelet Count 286 K/uL (130-400); RDW Coefficient of Variation 13.1 % (11.5-14.5); RDW Standard Deviation 47.3 fL (36.4-46.3); Red Blood Count 3.79 M/uL (4.2-5.4); White Blood Count 8.12 K/uL (4.8-10.8)
[2020-03-21 06:32] LABS: Estimated Average Glucose 114 mg/dl; Hemoglobin A1C 5.6 % (4.5-5.6)
[2020-03-21 06:38] LABS: BUN Creatinine Ratio 22.3 (10-20); Calcium 8.5 mg/dl (8.5-10.1); Creatinine Clr Calc Pharmacy 67.5 ml/min; Est GFR (African American) 74.8; Est GFR (Non-African American) 64.6; Potassium 3.7 mmol/L (3.5-5.1)
[2020-03-21 07:32] VITALS: TEMP 97.5; O2SAT 94
[2020-03-21] MEDS: CEROVITE ADV FORMULA TAB PO SCH (08:27)
[2020-03-21] MEDS: ASPIRIN 81 MG ECTAB PO SCH (08:27)
[2020-03-21] MEDS: NICOTINE 14 MG/24 HR PATCH TD SCH (08:27)
[2020-03-21] MEDS: CLOPIDOGREL BISULFATE 75 MG TAB PO SCH (08:28)
[2020-03-21] MEDS: BuPROPion XL 300 MG TABCR PO SCH (08:28)
[2020-03-21] MEDS: PANTOprazole 40 MG TAB PO SCH (08:28)
[2020-03-21] MEDS: BuPROPion XL 150 MG TABCR PO SCH (08:29)
[2020-03-21] MEDS ORDERED: ENOXAPARIN INJ 40 MG/0.4 ML SYR SQ SCH (09:00)
--- NOTE | 2020-03-21 10:05 | Hospitalist Progress Note ---
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 -Brain MRI "There are few small foci of restricted diffusion to within the right posterior frontal lobe, right parietal lobe, right occipital lobe, and right basal ganglia consistent with acute infarcts. There are 2 punctate foci of restricted diffusion seen within the left occipital lobe also consistent with acute infarcts. The midline structures are intact. Paranasal sinuses and mastoid air cells are clear. The major vascular flow-voids at the skull base are well- maintained. The ventricles and sulci are within normal limits. There is no mass, hematoma or midline shift. No abnormal enhancement. The paranasal sinuses and mastoid air cells are clear. Periventricular white matter T2 hyperintensity is nonspecific but favors mild microvascular ischemic change. Small scattered areas of edema associated with the infarct. IMPRESSION: Multiple scattered small infarcts seen within the brain, right greater than left" -as per neurology consult: the MRI evidence of several areas of infarction in the distribution of the right middle cerebral artery implicating embolic events -patient was outside of the window for TPA for acute stroke and has been started on aspirin and clopidogrel -echocardiogram with normal ejection fraction and there is no atrial septal defect -currently telemetry is normal sinus and rhythm -as per neurology Dr. Martinez: patient will need another ZIO Patch on an outpatient basis if further monitoring does not reveal atrial fibrillation and we can arrange to have this done through the [facility] neurology offices where she will need to be seen in follow-up in about 3 weeks on the dual antiplatelet program of Plavix and aspirin. "From a neurologic point of view we will probably simply continue her Plavix after stopping the aspirin in 3 weeks time" as per Dr. Martinez -on review of lipid panel, hospitalist have increased patient's rosuvastatin from 5 mg qhs to 20 mg qhs -Discharge medications to [facility] pharmacy [address] [place] [address], [place] [address] Electronic Prescriptions of nicotine patches to stop smoking Electronic Prescription of rosuvastatin 20 mg every night Electronic Prescription of aspirin 81 mg daily for 3 weeks and clopidogrel (Plavix) 75 mg daily with refill To avoid potential medication interactions with clopidogrel and home dose omeprazole, patient has electronic prescription to use famotidine for gastric reflux instead of omeprazole Obesity Hyperlipidemia -on review of lipid panel, hospitalist have increased patient's rosuvastatin from 5 mg qhs to 20 mg qhs. target is for LDL to be less than 70 -patient may benefit with weight loss strategy of exercise and dieting and avoid tobacco products -patient should followup with Dr. Hennessy, her primary care doctor Acute kidney injury -baseline creatinine 0.9 to 1 in outpatient labs -admission creatinine of 1.2 -creatinine normalized after IV fluids Hypertension -admitting physician held home dose triamterene/HCTZ -Target blood pressure while on anti-hypertensives is less than 140/90. patient may resume home dose dose triamterene/HCTZ on discharge Sleep Apnea -CPAP at bedtime. Gastroesophageal reflux disease -Continue PPI. Major depression Tobacco Use -on venlafaxine and Wellbutrin. -advise smoking cessation DVT prophylaxis: Lovenox 40 mg daily while inpatient appointments 03/25/2020 10:40 AM Provider Praneeth Hennessy MD Department Family Practice [facility] 05/09/2020 1:00 PM Provider Avery Martinez MD Department Neurology [facility] Discharge Stroke Instructions Risk Factors for Stroke: You can reduce your chances of stroke by working with your medical provider to adopt a healthy lifestyle. Some specific ways to lower your chance of stroke are: * If you are a smoker, now is the time to stop smoking cigarettes * If you are diabetic, improve the control of your blood sugars * Avoid excessive amounts of alcohol * Control high blood pressure * Lose weight if you are overweight * Be sure to lead an active lifestyle * Eat a healthy diet low in salt, cholesterol and fat You should know about other risk factors for stroke that you are unable to control. These include: * Age 55 years or older * Male gender * Certain racial groups: , or / * Family History of Stroke, Mini stroke or Heart Attack * Sickle Cell Disease Follow Up: It is important for you to keep your follow up appointments with your medical provider. Who to Call and When: Medical Emergencies: Call 911 immediately if you experience any of the following warning signs and symptoms of Stroke: * Sudden numbness or weakness of the face, arm or leg, especially on one side of the body * Sudden confusion, trouble speaking or understanding * Sudden trouble seeing in one or both eyes * Sudden trouble walking, dizziness, loss of balance or coordination * Sudden severe headache with no cause Do not delay calling 911 if you experience any warning signs or symptoms of a stroke. Delay in seeking medical attention may affect what treatments can be given to y ou. . Admission and Anticipated Discharge Date Admission Date: March 19, 2020 Subjective no acute cardiac events on telemetry. no arrhythmia noted. left sided facial droop improved. Patient ambulatory. Patient denies headache. has mild neck discomfort. no chest pain, no palpitations, no shortness of breath. is breathing on room air. no abdominal pain. no vomiting. discussed discharge plans at length Review of Systems Review of Systems: All systems reviewed & are unremarkable except as noted in Subjective Physical Exam Constitutional: comfortable Eyes: PERRL, conjunctivae normal, anicteric sclerae ENMT: external ear and nose normal, oropharynx normal (left sided facial droop improved) Neck: normal visual inspection Respiratory: normal respiratory effort, lungs clear to auscultation Cardiovascular: Rate/Rhythm: regular rate and regular rhythm Gastrointestinal (Abdomen): normal bowel sounds, soft, nontender, no hepatosplenomegaly Musculoskeletal: Head/Neck/Chest: normocephalic and head atraumatic Neurologic: CN's II-XI intact bilaterally and moves all extremities left sided facial droop improved Psychiatric: A+Ox3, euthymic affect Results & Data Results & Data ([facility]) Vital Signs (Past 12 Hours) Vital Signs Temp Pulse Pulse Pulse Resp BP Pulse Ox 03/21/20 07:30 36.4 C L 87 20 126/75 94 03/21/20 04:09 37.0 C 86 16 120/75 95 03/20/20 23:30 90 18 97 03/20/20 22:35 36.4 C L 82 20 149/89 H 96 (1) Stroke CVA mechanism: unspecified Qualified Code(s): I63.9 - Cerebral infarction, unspecified
[2020-03-21] MEDS ORDERED: STROKE PATIENT DISCHARGE STA (10:26)
--- NOTE | 2020-03-21 10:29 | Discharge Summary ---
Date of Service March 21, 2020 Admission HPI Per Admitting Provider DATE OF ADMISSION: 03/19/2020 CHIEF COMPLAINT: Slurred speech. 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 The patient says she noticed the slurred speech around 1:30 p.m. her colleagues told her to go to the ER and she came here in the evening and stroke alert was called. Apart from the mild slurred speech and some left facial droops, otherwise, no other symptoms. CT of the head was unremarkable. CTA of the head and neck were also okay. Because of out of the window no TPA was not given. Currently, patient is resting comfortably and hemodynamically stable. She complains of a headache. Denies any blurred vision, no earache, no runny nose, no sore throat, no cough, no chest pain, no shortness of breath, no fever, no chills, no sick contacts, no contact with COVID patients. No loss of smell or taste. No travel history. No nausea, no abdominal pain. Normal bowel and bladder movements. No hematuria or burning micturition, no black or blood in stools. No rash, no swelling in the legs. Otherwise, active. Admission Exam Per Admitting Provider GENERAL: The patient is obese, not in acute distress. VITAL SIGNS: Temperature 36.9, pulse 96, respiratory rate 18, blood pressure 142/79, oxygen 95% on room air. HEENT: No pallor, no icterus. Pupils equal, round, and reactive to light. NECK: No JVD, no neck masses, no carotid bruits. CARDIOVASCULAR: S1, S2 heard, regular rate and rhythm, no murmur, no gallop. RESPIRATORY SYSTEM: Normal AP diameter. No accessory muscle use. No wheezing, no crackles. ABDOMEN: Soft, bowel sounds present, nontender. No distention. CENTRAL NERVOUS SYSTEM: Alert and oriented. Extraocular muscles intact. Slight left facial droop. Speech mild dysarthria present. Power 5/5 in all extremities. No pronator drift. Coordination of movements normal. Ewix-xg-[id number] test normal. Sensation is intact. Position sense intact. EXTREMITIES: No edema, no erythema. 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 Obesity Hyperlipidemia Hypertension Acute Kidney Injury (resolved) Tobacco Use Obstructive Sleep Apnea Discharge Exam Constitutional comfortable Eyes PERRL, conjunctivae normal, anicteric sclerae ENMT external ear and nose normal, oropharynx normal (left sided facial droop improved) Neck normal visual inspection Respiratory normal respiratory effort, lungs clear to auscultation Cardiovascular Rate/Rhythm: regular rate and regular rhythm Gastrointestinal (Abdomen) normal bowel sounds, soft, nontender, no hepatosplenomegaly Musculoskeletal Head/Neck/Chest: normocephalic and head atraumatic Neurologic CN's II-XI intact bilaterally and moves all extremities Psychiatric A+Ox3, euthymic affect Discharge Data Allergies Allergy/AdvReac Type Severity Reaction Status Date / Time phenylephrine AdvReac Unknown Palpitation Verified 03/19/20 20:43 s Consultations 03/19/20 19:59 ED Decision to Admit Stat 03/19/20 21:32 Consult Case Management - Discharge Planning Routine Consult Case Management - Discharge Planning Routine 03/20/20 08:00 Consult Neurology Routine 03/21/20 09:45 Burn CD for patient Stat Ordered Studies 03/19/20 19:29 CT angio head w con Stat CT angio neck with con Stat CT head/brain wo con Stat 03/20/20 21:32 MR brain wo/w con Urgent Hospital Course (1) Stroke: 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 -Brain MRI "There are few small foci of restricted diffusion to within the right posterior frontal lobe, right parietal lobe, right occipital lobe, and right basal ganglia consistent with acute infarcts. There are 2 punctate foci of restricted diffusion seen within the left occipital lobe also consistent with acute infarcts. The midline structures are intact. Paranasal sinuses and mastoid air cells are clear. The major vascular flow-voids at the skull base are well- maintained. The ventricles and sulci are within normal limits. There is no mass, hematoma or midline shift. No abnormal enhancement. The paranasal sinuses and mastoid air cells are clear. Periventricular white matter T2 hyperintensity is nonspecific but favors mild microvascular ischemic change. Small scattered areas of edema associated with the infarct. IMPRESSION: Multiple scattered small infarcts seen within the brain, right greater than left" -as per neurology consult: the MRI evidence of several areas of infarction in the distribution of the right middle cerebral artery implicating embolic events -patient was outside of the window for TPA for acute stroke and has been started on aspirin and clopidogrel -echocardiogram with normal ejection fraction and there is no atrial septal defect -currently telemetry is normal sinus and rhythm -as per neurology Dr. Martinez: patient will need another ZIO Patch on an outpatient basis if further monitoring does not reveal atrial fibrillation and we can arrange to have this done through the [facility] neurology offices where she will need to be seen in follow-up in about 3 weeks on the dual antiplatelet program of Plavix and aspirin. "From a neurologic point of view we will probably simply continue her Plavix after stopping the aspirin in 3 weeks time" as per Dr. Martinez -on review of lipid panel, hospitalist have increased patient's rosuvastatin from 5 mg qhs to 20 mg qhs -Discharge medications to [facility] pharmacy [address] [place] [address], [place] [address] Electronic Prescriptions of nicotine patches to stop smoking Electronic Prescription of rosuvastatin 20 mg every night Electronic Prescription of aspirin 81 mg daily for 3 weeks and clopidogrel (Plavix) 75 mg daily with refill To avoid potential medication interactions with clopidogrel and home dose omeprazole, patient has electronic prescription to use famotidine for gastric reflux instead of omeprazole Obesity Hyperlipidemia -on review of lipid panel, hospitalist have increased patient's rosuvastatin from 5 mg qhs to 20 mg qhs. target is for LDL to be less than 70 -patient may benefit with weight loss strategy of exercise and dieting and avoid tobacco products -patient should followup with Dr. Hennessy, her primary care doctor Acute kidney injury -baseline creatinine 0.9 to 1 in outpatient labs -admission creatinine of 1.2 -creatinine normalized after IV fluids Hypertension -admitting physician held home dose triamterene/HCTZ -Target blood pressure while on anti-hypertensives is less than 140/90. patient may resume home dose dose triamterene/HCTZ on discharge Sleep Apnea -CPAP at bedtime. Gastroesophageal reflux disease -Continue PPI. Major depression Tobacco Use -on venlafaxine and Wellbutrin. -advise smoking cessation DVT prophylaxis: Lovenox 40 mg daily while inpatient appointments 03/25/2020 10:40 AM Provider Praneeth Hennessy MD Department Family Practice [facility] 05/09/2020 1:00 PM Provider Avery Martinez MD Department Neurology [facility] Discharge Stroke Instructions Risk Factors for Stroke: You can reduce your chances of stroke by working with your medical provider to adopt a healthy lifestyle. Some specific ways to lower your chance of stroke are: * If you are a smoker, now is the time to stop smoking cigarettes * If you are diabetic, improve the control of your blood sugars * Avoid excessive amounts of alcohol * Control high blood pressure * Lose weight if you are overweight * Be sure to lead an active lifestyle * Eat a healthy diet low in salt, cholesterol and fat You should know about other risk factors for stroke that you are unable to control. These include: * Age 55 years or older * Male gender * Certain racial groups: , or / * Family History of Stroke, Mini stroke or Heart Attack * Sickle Cell Disease Follow Up: It is important for you to keep your follow up appointments with your medical provider. Who to Call and When: Medical Emergencies: Call 911 immediately if you experience any of the following warning signs and symptoms of Stroke: * Sudden numbness or weakness of the face, arm or leg, especially on one side of the body * Sudden confusion, trouble speaking or understanding * Sudden trouble seeing in one or both eyes * Sudden trouble walking, dizziness, loss of balance or coordination * Sudden severe headache with no cause Do not delay calling 911 if you experience any warning signs or symptoms of a stroke. Delay in seeking medical attention may affect what treatments can be given to you. . 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 Obesity Hyperlipidemia Hypertension Acute Kidney Injury (resolved) Tobacco Use Obstructive Sleep Apnea Condition on Discharge: Good Activity: Per Instructions section Non-emergency contact: Primary Care Provider and Neurologist Call non-emergency contact if: you have any medication questions Follow-up/Referrals: Praneeth Hennessy MD [Primary Care Provider] - 03/25/20 10:25 am Diet: Heart Healthy Rodolfo Attending Provider Instructions: Discharge medications to [facility] pharmacy [address] [place] [address] Electronic Prescriptions of nicotine patches to stop smoking Electronic Prescription of rosuvastatin 20 mg every night Electronic Prescription of aspirin 81 mg daily for 3 weeks and clopidogrel (Plavix) 75 mg daily with refill To avoid potential medication interactions with clopidogrel and home dose omeprazole, patient has electronic prescription to use famotidine for gastric reflux instead of omeprazole -as per neurology Dr. Martinez: patient will need another ZIO Patch on an outpatient basis if further monitoring does not reveal atrial fibrillation and we can arrange to have this done through the [facility] neurology offices where she will need to be seen in follow-up in about 3 weeks on the dual antiplatelet program of Plavix and aspirin. "From a neurologic point of view we will probably simply continue her Plavix after stopping the aspirin in 3 weeks time" as per Dr. Martinez Target blood pressure while on anti-hypertensives is less than 140/90 Obesity Hyperlipidemia -on review of lipid panel, hospitalist have increased patient's rosuvastatin from 5 mg qhs to 20 mg qhs. target is for LDL to be less than 70 -patient may benefit with weight loss strategy of exercise and dieting and avoid tobacco products -patient should followup with Dr. Hennessy, her primary care doctor appointments 03/25/2020 10:40 AM Provider Praneeth Hennessy MD Department Family Practice [facility] 05/09/2020 1:00 PM Provider Avery Martinez MD Department Neurology [facility] [employer] Provider Instructions: Discharge Stroke Instructions Risk Factors for Stroke: You can reduce your chances of stroke by working with your medical provider to adopt a healthy lifestyle. Some specific ways to lower your chance of stroke are: * If you are a smoker, now is the time to stop smoking cigarettes * If you are diabetic, improve the control of your blood sugars * Avoid excessive amounts of alcohol * Control high blood pressure * Lose weight if you are overweight * Be sure to lead an active lifestyle * Eat a healthy diet low in salt, cholesterol and fat You should know about other risk factors for stroke that you are unable to control. These include: * Age 55 years or older * Male gender * Certain racial groups: , or / * Family History of Stroke, Mini stroke or Heart Attack * Sickle Cell Disease Follow Up: It is important for you to keep your follow up appointments with your medical provider. Who to Call and When: Medical Emergencies: Call 911 immediately if you experience any of the following warning signs and symptoms of Stroke: * Sudden numbness or weakness of the face, arm or leg, especially on one side of the body * Sudden confusion, trouble speaking or understanding * Sudden trouble seeing in one or both eyes * Sudden trouble walking, dizziness, loss of balance or coordination * Sudden severe headache with no cause Do not delay calling 911 if you experience any warning signs or symptoms of a stroke. Delay in seeking medical attention may affect what treatments can be given to you. . Pending Studies at Discharge: No Stand-Alone Forms: My [facility] [place], Smoking Cessation Medications and DC Order Prescriptions: New nicotine 7 mg/24 hr Patch 24 Hour 14 mg transdermal DAILY 30 Days Qty: 30 RF: 0 rosuvastatin [Crestor] 20 mg Tablet 20 mg PO HS 30 Days Qty: 30 RF: 0 aspirin 81 mg Tablet,Delayed Release (Dr/Ec) 81 mg PO QAM 21 Days Qty: 21 RF: 0 clopidogrel 75 mg Tablet 75 mg PO QAM 30 Days Qty: 30 RF: 1 famotidine 20 mg tablet 20 mg PO DAILY 30 Days Qty: 30 RF: 1 Continued valacyclovir 1 gram tablet 2,000 mg PO Q12H PRN (Reason: Cold Sores) RF: 0 venlafaxine 150 mg capsule,extended release 24hr 150 mg PO HS RF: 0 aspirin 81 mg Tablet,Delayed Release (Dr/Ec) 81 mg PO QAM RF: 0 tramadol 50 mg tablet 50 mg PO Q6H PRN (Reason: Pain) RF: 0 temazepam 15 mg capsule 30 mg PO HS RF: 0 triamterene-hydrochlorothiazid 37.5-25 mg tablet 1 tab PO QAM RF: 0 ergocalciferol (vitamin D2) 1,250 mcg (50,000 unit) capsule 50,000 unit PO WK RF: 0 lysine 500 mg Tablet 500 mg PO QAM RF: 0 fluticasone propionate 50 mcg/actuation spray,suspension 2 spray INTRANASAL DAILY PRN (Reason: Allergy Symptoms) RF: 0 bupropion HCl 300 mg tablet extended release 24 hr 300 mg PO QAM RF: 0 bupropion HCl 150 mg tablet extended release 24 hr 150 mg PO QAM RF: 0 Women's Multivitamin 18 mg iron-400 mcg-500 mg Tablet 1 tab PO QAM RF: 0 lorazepam 0.5 mg tablet 0.5 mg PO TID PRN (Reason: Anxiety) RF: 0 Discontinued omeprazole 40 mg capsule,delayed release(DR/EC) 40 mg PO QAM RF: 0 acetaminophen 500 mg Tablet 1,000 mg PO Q6H PRN (Reason: Fever Or Pain) RF: 0 rosuvastatin 5 mg tablet 5 mg PO HS RF: 0 Discharge Orders: Discharge Order (Routine); Ordered 03/21/20 Ordered By: Raymond Hardwick/Other Patient Handouts: Stroke Home Safety Admission Data Admit Date/Time: 03/19/20 21:00 Attending Provider: Raymond Tejada Admit Provider: Sammy Dutta Primary Care Provider: Praneeth Hennessy Other Providers: Sammy Dutta ; Coleen Parker ; Avery Martinez ; Coleen Perez ; Chuy Milan
--- NOTE | 2020-03-21 10:51 | Pharmacy Report ---
Pharmacist Stroke Counseling - Date of Service March 21, 2020 - Scope: Pharmacy has been consulted to provide medication discharge counseling for this patient admitted with [ischemic stroke] [hemorrhagic stroke] [transient ischemic attack] as per the Pharmacist Discharge Counseling for Stroke Patients Protocol. - Medications on Discharge: Home Medications Medication Instructions Recorded Confirmed Women's Multivitamin 1 tab PO QAM 03/19/20 03/19/20 aspirin 81 mg PO QAM 03/19/20 03/19/20 bupropion HCl 150 mg PO QAM 03/19/20 03/19/20 bupropion HCl 300 mg PO QAM 03/19/20 03/19/20 ergocalciferol (vitamin D2) 50,000 unit PO WK 03/19/20 03/19/20 fluticasone propionate 2 spray INTRANASAL DAILY PRN 03/19/20 03/19/20 lorazepam 0.5 mg PO TID PRN 03/19/20 03/19/20 lysine 500 mg PO QAM 03/19/20 03/19/20 temazepam 30 mg PO HS 03/19/20 03/19/20 tramadol 50 mg PO Q6H PRN 03/19/20 03/19/20 triamterene-hydrochlorothiazid 1 tab PO QAM 03/19/20 03/19/20 valacyclovir 2,000 mg PO Q12H PRN 03/19/20 03/19/20 venlafaxine 150 mg PO HS 03/19/20 03/19/20 New Rx's Medication Instructions Recorded aspirin 81 mg PO QAM 21 Days #21 tab 03/21/20 clopidogrel 75 mg PO QAM 30 Days #30 tab 03/21/20 famotidine 20 mg PO DAILY 30 Days #30 tab 03/21/20 nicotine 14 mg TRANSDERMAL DAILY 30 Days 03/21/20 #30 ea rosuvastatin [Crestor] 20 mg PO HS 30 Days #30 tab 03/21/20 - Action: The above medications, specifically ones for stroke treatment/prophylaxis, have been reviewed in detail with the patient prior to discharge. This includes indication, common adverse reactions, drug interactions, and medication administration. Medication counseling has been employed using the teach-back method to ensure understanding. - Outcome: The patient has demonstrated understanding of the medications. Please note, they are aware that the pharmacist will call them within 72 hours post-discharge to confirm that the appropriate medications are being taken and answer any further medication related questions the patient might have at that time. Contact information Individual to be contacted: self Relationship to patient (if applicable): -- Phone number: [phone] Best time to call: anytime Additional comments: -reviewed reason for switch from Omeprazole -reviewed aspirin + Plavix x 3 weeks then change to just Plavix -denies any problems with bruising or bleeding along with myopathies. Thank you for allowing pharmacy to be involved in the care of this patient. Please call [phone] or [phone] with any additional questions
[2020-03-21 10:55] VITALS: BP 114/69; PULSE 91
[2020-03-23] MEDS ORDERED: ERGOCALCIFEROL 50,000 UNITS CAP PO SCH (09:00)
--- NOTE | 2020-03-24 11:55 | Pharmacy Report ---
Pharmacist Post D/C Phone Note - Phone Note: Date of phone call: March 24, 2020. The patient and/or patient bank representative(s) were unable to be reached for a follow-up phone call within the 72 hour time frame. Discharge counseling pharmacist contact information has already been provided to the patient should questions arise. Thank you for allowing us to be involved in the care of this patient. - Home Medications: Home Medications Medication Instructions Recorded Confirmed Women's Multivitamin 1 tab PO QAM 03/19/20 03/19/20 aspirin 81 mg PO QAM 03/19/20 03/19/20 bupropion HCl 150 mg PO QAM 03/19/20 03/19/20 bupropion HCl 300 mg PO QAM 03/19/20 03/19/20 ergocalciferol (vitamin D2) 50,000 unit PO WK 03/19/20 03/19/20 fluticasone propionate 2 spray INTRANASAL DAILY PRN 03/19/20 03/19/20 lorazepam 0.5 mg PO TID PRN 03/19/20 03/19/20 lysine 500 mg PO QAM 03/19/20 03/19/20 temazepam 30 mg PO HS 03/19/20 03/19/20 tramadol 50 mg PO Q6H PRN 03/19/20 03/19/20 triamterene-hydrochlorothiazid 1 tab PO QAM 03/19/20 03/19/20 valacyclovir 2,000 mg PO Q12H PRN 03/19/20 03/19/20 venlafaxine 150 mg PO HS 03/19/20 03/19/20 New Rx's Medication Instructions Recorded aspirin 81 mg PO QAM 21 Days #21 tab 03/21/20 clopidogrel 75 mg PO QAM 30 Days #30 tab 03/21/20 famotidine 20 mg PO DAILY 30 Days #30 tab 03/21/20 nicotine 14 mg TRANSDERMAL DAILY 30 Days 03/21/20 #30 ea rosuvastatin [Crestor] 20 mg PO HS 30 Days #30 tab 03/21/20
== END 2020-03-21 11:23 | disposition home or self-care (01) | DRG 65 ==
LOC: ED 18:59 → 1E 21:00 → 2S 03-20 07:35

== ENCOUNTER 2022-09-28 09:11 | Observation (INO) ==
--- NOTE | 2022-06-26 13:59 | PAT Medication Instructions ---
Medication Instructions Date of Service June 26, 2022 Home Medications bupropion HCl 300 mg 24 hr tablet, extended release 300 mg PO QAM temazepam 15 mg capsule 30 mg PO HS valacyclovir 1 gram tablet 2,000 mg PO Q12H PRN Cold Sores venlafaxine 150 mg capsule,extended release 24 hr 150 mg PO HS apixaban 5 mg tablet (Eliquis) 5 mg PO BID cholecalciferol (vitamin D3) 50 mcg (2,000 unit) capsule (Vitamin D3) 50 mcg PO QAM metoprolol succinate 50 mg tablet,extended release 24 hr 50 mg PO QAM pantoprazole 20 mg tablet,delayed release 20 mg PO QAM rosuvastatin 20 mg tablet 20 mg PO HS ASK your prescriber and surgeon apixaban 5 mg tablet (Eliquis) 5 mg PO BID (in order for spinal anesthesia, Eliquis/apixaban needs to be stopped 72 hours/3 days before surgery. Please check if okay with doctor that prescribes this to you) DO NOT take the morning of surgery cholecalciferol (vitamin D3) 50 mcg (2,000 unit) capsule (Vitamin D3) 50 mcg PO QAM Take morning of surgery With a small sip of water, OTHERWISE NOTHING TO EAT OR DRINK AFTER MIDNIGHT: bupropion HCl 300 mg 24 hr tablet, extended release 300 mg PO QAM valacyclovir 1 gram tablet 2,000 mg PO Q12H PRN Cold Sores (if needed) metoprolol succinate 50 mg tablet,extended release 24 hr 50 mg PO QAM pantoprazole 20 mg tablet,delayed release 20 mg PO QAM Take evening before surgery temazepam 15 mg capsule 30 mg PO HS valacyclovir 1 gram tablet 2,000 mg PO Q12H PRN Cold Sores (if needed) venlafaxine 150 mg capsule,extended release 24 hr 150 mg PO HS rosuvastatin 20 mg tablet 20 mg PO HS Other Notes If you have any questions please call us at [phone] or [phone] or [phone] or [phone]
--- NOTE | 2022-09-10 10:31 | Anesthesiology Consultation ---
Date of Service September 10, 2022 Assessment & Plan (1) Encounter for pre-operative examination: - awaiting cardiology response on optimization and pericardial effusion. 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 Betancourt. Since surgery, patient has been doing well. Applying DSD to right toe amp site and walking with Darco shoe. Minimal pain. No fever, chills or rigors. HPI: In April she had foot pain, in May the toes turned purple, and she sought care several times before being referred to me. She reports she had a stroke March 19, 2020; reported left sided facial drooping and then she had dysarthria, reportedly paroxysmal AF...OK to proceed with LEFT TKA..." - cardiology 08/21/22 [facility]: "...paroxysmal atrial fibrillation , cardio embolic CVA, hypertension, dyslipidemia. History of chronic posterior loculated pe ricardial effusion (resolved per echo 03/2020); PVD with embolism to her toe. Patient presents today feeling well. Following with vascular after recent intervention and toe amputation. No chest pain, shortness of breath, palpitations, dizziness, syncope or near syncope. No orthopnea, PND, or increased lower extremity edema. No fever, chills, cough, hematochezia, melena, or hemoptysis...Paroxysmal atrial fibrillation, continue Eliquis- regular rhythm on exam. Cerebrovascular accident due to embolic event-patient not anticoagulated at time of CVA...PVD S/P recent R CFEA and patch angioplasty for near occlusive right femoral lesion with embolization to the right foot...Continue Eliquis and ASA. Follow up with vascular as scheduled..." Chart Review Chart Review: Pending: Refer to Additional Notes / Consult section and Patient seen in Pre Admission Testing Teaching & Discussion Pre-Anesthesia Teaching/Discussion Notes: Instructed NPO after midnight before surgery, except medications with 15 cc of water. Medication instructions provided according to the PAT guidelines. History Surgery Operation Date: 09/28/22 10:10 Proposed Procedures p Left Total Knee Arthroplasty - Adalid Rahman, Height/Weight Height: 5 ft 4 in Weight: 97.7 kg Allergies Allergy/AdvReac Type Severity Reaction Status Date / Time phenylephrine AdvReac Unknown Palpitation Verified 09/05/22 10:08 s Medications Home Medications Medication Instructions Recorded Confirmed Last Taken bupropion HCl 300 mg 24 hr tablet, 300 mg PO QAM 03/19/20 06/26/22 03/19/20 extended release temazepam 15 mg capsule 30 mg PO HS 03/19/20 06/26/22 03/18/20 valacyclovir 1 gram tablet 2,000 mg PO Q12H PRN Cold Sores 03/19/20 06/26/22 Unknown venlafaxine 150 mg 150 mg PO HS 03/19/20 06/26/22 03/18/20 capsule,extended release 24 hr apixaban 5 mg tablet (Eliquis) 5 mg PO BID 06/26/22 06/26/22 Unknown cholecalciferol (vitamin D3) 50 50 mcg PO QAM 06/26/22 06/26/22 Unknown mcg (2,000 unit) capsule (Vitamin D3) metoprolol succinate 50 mg 50 mg PO QAM 06/26/22 06/26/22 Unknown tablet,extended release 24 hr pantoprazole 20 mg tablet,delayed 20 mg PO QAM 06/26/22 06/26/22 Unknown release rosuvastatin 20 mg tablet 20 mg PO HS 06/26/22 06/26/22 Unknown aspirin 81 mg tablet 81 mg PO QAM 09/05/22 09/05/22 Unknown hydrocodone 5 mg-acetaminophen 300 1 - 2 tab PO Q8H PRN Pain 09/05/22 09/05/22 Unknown mg tablet semaglutide 0.25 mg or 0.5 mg (2 0.5 mg subcut WK 09/05/22 09/05/22 Unknown mg/1.5 mL) subcutaneous pen injector (Ozempic) aspirin 09/10/22 Unknown Past Medical History Medical History (Updated 09/10/22 @ 15:51 by Taylor Melo PA-C) Anxiety Depression GERD (gastroesophageal reflux disease) controlled, stable per pt History of amputation of toe right 5th- done during angioplasty 07/19/2022 HTN (hypertension) controlled, stable per pt Hyperlipidemia Obesity Paroxysmal A-fib on Eliquis, follows with [facility] Poor circulation Mild occlusive disease on right foot and toes- appt with vascular surgeon 06/27 ([facility]) Sleep apnea CPAP-compliant Stress incontinence Stroke 03/2020, no residual effects Patient denies h/o seizures, heart attack, heart failure, DM or blood transfusions. Exercise / Class Metabolic Activity II 4-5 Yardwork/Stairs/Walk up hill (denies CP or SOB with 1 FOS) Past Family History Family History Sister Family history of diabetes mellitus Past Surgical History Surgical History (Updated 09/10/22 @ 10:48 by Taylor Melo PA-C) Elective surgery Bladder stimulator implanted (05/2022) NEED TO MAKE AWARE TO BRING REMOTE AM DOS H/O section History of bilateral tubal ligation History of colonoscopy Hx of angioplasty 07/19/2022--right femoral artery - endarterectomy w/ pericardial patch --Dr Emmanuel Flaherty Nausea and vomiting after administration of anesthetic agent denies needing scop patch Past Anesthesia History No Hx of Anesthesia Complications and No Family Hx of Anesthesia Complications History of PONV History of PONV (occasional, denies needing scop patch) and Hx of Motion Sickness Social History Smoking Status: Current every day smoker tobacco type: cigarettes Smoking cigarettes per day: 10 CIGS A DAY-ADVISED Do You Dip or Chew Tobacco: No Hx Alcohol Use: No Hx Substance Use: No substance use type: does not use Review of Systems Patient denies chest pain, shortness of breath, dyspnea on exertion, fever, chills, cough, wheezing, or palpitations. Physical Exam Vital Signs Vitals BP 120/60 P 78 TEMP 98.3 SP02 96% on RA RESP 18 Physical Full cervical extension range of motion without pain TMD 3.5 finger breadths Mallampati Score 2 Dentition: intact, several caps/crowns; denies chipped or loose teeth, implants or bridges Lungs: normal respiratory effort. Clear throughout to auscultation, no adventitious breath sounds Cardiac: regular rate and rhythm, no murmurs noted Carotid arteries: negative bruit bilat Lab Results Anesthesia Preop Results Results Anesthesia Widget: WBC 7.47 K/ul (4.8-10.8) 09/10/22 Hgb 11.1 g/dl (12.0-16.0) L 09/10/22 Hct 33.3 % (34.1-44.9) L 09/10/22 Plt 328 K/uL (130-400) 09/10/22 Na 141 mmol/L (136-145) 09/10/22 K 3.7 mmol/L (3.5-5.1) 09/10/22 Cl 107 mmol/L (98-107) 09/10/22 CO2 29 mmol/L (21-32) 09/10/22 BUN 22 mg/dl (6-23) 09/10/22 Creat 0.73 mg/dl (0.6-1.2) 09/10/22 Glucose Level 79 mg/dl (70-99(Fasting)) 09/10/22 PT 10.6 Seconds (9.0-12.0) 09/10/22 PTT 39.3 Seconds (21.0-31.0) H 09/10/22 INR 1.0 (0.9-1.1) 09/10/22 Blood Type A Positive 09/10/22 Antibody Screen NEGATIVE 09/10/22 Testing Electrocardiogram Date: 10/27/21 NSR, rate 87 bpm Low voltage QRS, consider pulmonary disease, pericardial effusion, or normal variant Chest X-Ray Date: 09/10/22 Cardiomediastinal and hilar silhouettes are within normal limits. No pneumothorax, pleural effusion, airspace consolidation or overt pulmonary edema. Degenerative changes of the shoulders and spine. Chronic upper lumbar compression deformity. Hiatal hernia. IMPRESSION: No acute process. Echocardiogram Date: 07/19/22 EF 65-69% No LV segmental wall motion abnormalities Small posterior loculated pericardial effusion. Cardiac tamponade is absent Borderline cLVH No LV wall motion abnormalities Grade I diastolic dysfunction Stress Test Date: 07/21/20 Pharmacologic MPHR 92% Normal No LV wall motion abnormalities EF > 70% Other Testing CTA chest, abdominal aorta and bilat LEs with and without contrast 07/10/22 Pulmonary arteries: No pulmonary emboli. Aorta: Minimal aortic atherosclerosis. No aneurysm or dissection. Lungs: Mild pulmonary emphysema. No airspace consolidation. No suspicious pulmonary nodules or mass lesions. Pleural spaces: No pneumothorax. No pleural effusion. Heart: Small pericardial fluid. No significant cardiomegaly. Lymph nodes: No enlarged lymph nodes. Bones/joints: Degenerative changes in the spine. No acute fracture or subluxation. Chronic healed left-sided rib deformities. Soft tissues: No suspicious lesions. IMPRESSION: 1. Small pericardial fluid. 2. Mild pulmonary emphysema. 3. Minor incidental findings as described. 1. No acute arterial pathology. No significant stenosis. 2. Patent but diminutive three-vessel runoff bilaterally. 3. Incidental findings include a moderate hiatal hernia, right total knee arthroplasty. Neck CTA 03/19/20 There are apical pulmonary blebs present. The right carotid revealed no evidence of aneurysm and no evidence of dissection. There is no evidence of hemodynamic significant stenosis. The left carotid revealed no evidence of hemodynamic significant stenosis. There is no evidence of aneurysm. There is no evidence of dissection. There is no evidence of vertebral artery occlusion or dissection. There is mild nonhemodynamically significant left vertebral artery narrowing at the C5 level due to facet joint arthropathy. IMPRESSION: No evidence of hemodynamically significant carotid or vertebral artery stenosis. No evidence of dissection.
--- NOTE | 2022-09-27 06:55 | History & Physical Report ---
Date of Service September 27, 2022 Assessment & Plan (1) Osteoarthritis of left knee: We will proceed with a left total knee arthroplasty. Postoperatively she will be started on Eliquis for DVT prophylaxis and kept overnight in the hospital for postoperative medical management. She plans to use energy physical therapy upon discharge. History of Present Illness Chief Complaint: Osteoarthritis of the left knee. Primary Care Provider: Praneeth Hennessy MD Kermit a pleasant 67-year-old female who has been dealing with chronic worsening left knee pain. She has a history of a right knee replacement done by Dr. Wen in the past. She did well with that.Unfortunately, sheis dealingwith a lotof left knee pain. She is havingdifficulty going up and down stairs. Sheis having difficulty doing her activities of daily living. She recently retired. X-rays have been diagnostic for advanced osteoarthritis of the left knee. After failing conservative treatment, she has elected to proceed with a left total knee arthroplasty. Allergies Allergy/AdvReac Type Severity Reaction Status Date / Time phenylephrine AdvReac Unknown Palpitation Verified 09/05/22 10:08 s Home Medications Medication Instructions Recorded Confirmed Type bupropion HCl 300 mg 24 hr tablet, 300 mg PO QAM 03/19/20 06/26/22 History extended release temazepam 15 mg capsule 30 mg PO HS 03/19/20 06/26/22 History valacyclovir 1 gram tablet 2,000 mg PO Q12H PRN Cold Sores 03/19/20 06/26/22 History venlafaxine 150 mg 150 mg PO HS 03/19/20 06/26/22 History capsule,extended release 24 hr apixaban 5 mg tablet (Eliquis) 5 mg PO BID 06/26/22 06/26/22 History cholecalciferol (vitamin D3) 50 50 mcg PO QAM 06/26/22 06/26/22 History mcg (2,000 unit) capsule (Vitamin D3) metoprolol succinate 50 mg 50 mg PO QAM 06/26/22 06/26/22 History tablet,extended release 24 hr pantoprazole 20 mg tablet,delayed 20 mg PO QAM 06/26/22 06/26/22 History release rosuvastatin 20 mg tablet 20 mg PO HS 06/26/22 06/26/22 History aspirin 81 mg tablet 81 mg PO QAM 09/05/22 09/05/22 History hydrocodone 5 mg-acetaminophen 300 1 - 2 tab PO Q8H PRN Pain 09/05/22 09/05/22 History mg tablet semaglutide 0.25 mg or 0.5 mg (2 0.5 mg subcut WK 09/05/22 09/05/22 History mg/1.5 mL) subcutaneous pen injector (Ozempic) aspirin 09/10/22 History Past Med/Surg History Medical History Anxiety Depression GERD (gastroesophageal reflux disease) controlled, stable per pt History of amputation of toe right 5th- done during angioplasty 07/19/2022 HTN (hypertension) controlled, stable per pt Hyperlipidemia Obesity Paroxysmal A-fib on Eliquis, follows with [facility] [place] cardio Poor circulation Mild occlusive disease on right foot and toes- appt with vascular surgeon 06/27 ([facility] [place]) Sleep apnea CPAP-compliant Stress incontinence Stroke 03/2020, no residual effects Surgical History Elective surgery Bladder stimulator implanted (05/2022) NEED TO MAKE AWARE TO BRING REMOTE AM DOS H/O section History of bilateral tubal ligation History of colonoscopy Hx of angioplasty 07/19/2022--right femoral artery - endarterectomy w/ pericardial patch --Dr Emmanuel Lopez Nausea and vomiting after administration of anesthetic agent denies needing scop patch Family History Sister Family history of diabetes mellitus Social History Smoking Status: Current every day smoker Cigarettes Per Day: 10 CIGS A DAY-ADVISED; Second Hand Exposure: Yes (ON OCC); Hx Alcohol Use: No Hx Substance Use: No Preferred Language: Sami Communication Ability: Effective Armoured Car Escort Required: No Beliefs That Will Affect Care: None marital status: Single Current Living Situation: Family Current Living Situation Comment: LIVES WITH SON DAUGHTER IN LAW current occupational status: retired Feels Safe at Home: Yes Assistive Devices: Contacts, CPAP and Glasses Review of Systems All systems reviewed & are unremarkable except as noted in HPI & below. Physical Exam On physical examination of the left knee, she has a slight varus deformity. She has tenderness palpation of the distal medial femoral condyle and over the medial joint line.. Constitutional WD/WN, vitals as above Eyes PERRL, conjunctivae normal, anicteric sclerae ENMT external ear and nose normal, oropharynx normal Neck trachea midline, no thyromegaly Respiratory normal respiratory effort, lungs clear to auscultation Cardiovascular RRR, no murmur, no edema Gastrointestinal (Abdomen) normal bowel sounds, soft, nontender, no hepatosplenomegaly Skin no rashes, warm and dry Psychiatric A+Ox3, euthymic affect Results & Data Results & Data Laboratory Results . Diagnostic Findings X-rays of the left knee show advanced osteoarthritis with joint space narrowing, osteophyte formation, and [id number] articulation. PG Care Time/CCT Total # of Minutes Spent Total Time Spent with Patient: Total time spent is greater than 50% in coordination of care (as documented) at patient's floor/unit and/or counseling patient: Coding Level of Care Code None Diagnoses Osteoarthritis of left knee M17.12
[~2022-09-28 09:11] MED LIST changes: -ACET-1138 PO; +ACETAMINOPHEN 500 MG TAB PO SCH; -ASPI81TA28 PO; -ATOR-24 PO; +BUPIVACAINE 0.5 % 5 MG/1 ML PF 10ML VIAL ONE; -BUPRTAB PO; -BUPRTAB51 PO; -CLB200 PO; -DYZ PO; -EFFSR150 PO; -ERGO500011 PO; +FAMOTIDINE 20 MG TAB PO SCH; +GABAPENTIN 300 MG CAP PO SCH; -GLUC15002 PO; +LR 500ML BOLUS, THEN 15ML/HR IV SCH; +LR 60ML/HR IV SCH; -LYSI100010 PO; -MULT-506 PO; -OMEP20CA9 PO; +ORTHO JOINT MIX INFIL SCH; -OXYSR10 PO; +ROPIVACAINE 0.5% 5 MG/ML 30 ML VIAL ONE; -RXC5 PO; -SNK PO; -TEMA15CA4 PO; +TRANEXAMIC ACID 1,000 MG **IV Intra-op IV SCH; +TRANEXAMIC ACID 1,000 MG **IV Pre-op IV SCH; +ceFAZolin 2000MG 2,000 MG/15 ML SYR IV SCH; +dexAMETHasone 4 MG TAB PO SCH
[2022-09-28] MEDS ORDERED: ONDANSETRON INJ 2 MG/ML 2 ML VIAL ONE (09:43)
[2022-09-28] MEDS ORDERED: PROPOFOL IV EMULSION 10 MG/ML 20 ML VIAL IV ONE ×2 (09:43→12:28)
[2022-09-28] MEDS ORDERED: MIDAZOLAM HCL 1 MG/ML 2ML VIAL ONE (09:43)
[2022-09-28] MEDS ORDERED: PHENYLEPHRINE 100MCG/ML 5ML SYR ONE (10:15)
--- NOTE | 2022-09-28 10:19 | History & Physical Bridge Note ---
Date of Service September 28, 2022 History & Physical Bridge Note I have examined the patient, reviewed the History & Physical and in the interval since the performance of the History & Physical I have noted the following changes of clinical significance: no changes noted
[2022-09-28] MEDS ORDERED: ORTHO JOINT ANESTHETIC ONE (10:43)
[2022-09-28] MEDS ORDERED: fentaNYL citrate 100 MCG/2 ML VIAL IV PRN (10:51)
[2022-09-28] MEDS ORDERED: ATROPINE SULFATE 0.1 MG/ML 10ML SYR IV PRN (10:51)
[2022-09-28] MEDS ORDERED: ePHEDrine sulfate 50 MG/ML AMP IV PRN (10:51)
[2022-09-28] MEDS ORDERED: ONDANSETRON INJ 2 MG/ML 2 ML VIAL IV PRN ×2 (10:51→14:39)
--- NOTE | 2022-09-28 12:26 | Operative Report ---
PG Post Operative Report Pre & Post Diagnosis Operation Date: 09/28/22 11:40 Pre-Op Diagnosis: Osteoarthritis of left knee Post-Op Diagnosis: Osteoarthritis of left knee I identified the patient and participated in the time-out.: Yes Procedure Operation Date: 09/28/22 11:40 Actual Procedures p Left Total Knee Arthroplasty(Left) - Adalid Rahman DO Surgeon Adalid Rahman DO Feature Writer Adalid Rangel PA-C Estimated Blood Loss 20 Findings Consistent with Post-Op Diagnosis Specimens Left femoral and tibial bone Description of Procedure Implants used: I used a Rossy Persona total knee arthroplasty system with a size 7 narrow femur, E tibia, 31 oval patella, and a size 10 medial congruent polyethylene bearing. All components were cemented in place with Biomet cement. [facility] arrived [facility] for the above procedure. She was seen in the preoperative holding area and the operative extremity was identified and signed. She was given a preoperative antibiotic, TXA, a spinal anesthetic and an adductor nerve block. She was taken back to the operating room and laid on the table in supine position. She was given basic sedation. The operative knee was then prepped and draped in sterile fashion. A timeout was done, and the patient and the operative extremity was properly identified. A midline incision was made directly over the patella. Dissection was taken down to the extensor mechanism. A subvastus arthrotomy was used. The medial retinaculum was released and the fat pad was mostly excised. The knee was flexed and the ACL, PCL, and meniscus were removed. A drill was sent down the center of the femoral canal followed by an intramedullary porter. Off that porter a distal femoral cutting block was placed. 9 mm was resected off the distal femur at 5 of valgus. A posterior referencing AP sizing guide was then placed on the distal femur. The femur measured to be a size 7. 2 drill holes were placed in 3 of external rotation. A 4-in-1 cutting block was then impacted into place. Anterior, posterior, and chamfer cuts were then made. The proximal tibia was then exposed. An external tibial alignment guide was placed. A tibial cut guide was then anchored in place and the proximal tibia was then resected. The posterior aspect of the knee was then opened up and any additional meniscus fragments and osteophytes were removed. The tibia measured to be a size E. The tibial plate was then placed in the appropriate rotation and the tibia was drilled and punched. Trial components were then placed. I used a size 10 medial congruent polyethylene insert. The knee was brought through a full range of motion and felt to be stable. The peg holes for the femoral component were then drilled. The patella was then everted and 9 mm was resected off the posterior aspect of the patella. The patella measured to be a size 31 oval. 3 peg holes were then drilled. A trial patella was placed. The knee was once again brought through a full range of motion and felt to be stable. Trial components were then removed. The surrounding soft tissues were injected with 100 cc of an orthopedic pain control cocktail. All components were then cemented into place with Biomet cement. The final polyethylene insert was then snapped into place. Once cement was dry the tourniquet was deflated. Hemostasis was obtained. A dilute betadyne lavage was then done for 3 minutes. The joint was then irrigated with normal saline solution. The subvastus arthrotomy was then closed with #1 Vicryl suture. The skin was closed with 2-0 Vicryl, 3-0V lock suture, and reinaldo. A soft compressive dressing was placed. She was then transferred to a hospital bed and taken to the postanesthesia care unit in stable condition. She tolerated the procedure well. Adalid Rangel PA-C, was present for the entire procedure. He was critical for patient positioning, prepping, draping, retraction exposure, wound closure and application of sterile dressing. I attest to the content of the Intraoperative Record and any orders documented therein. Any exceptions are noted below.
--- NOTE | 2022-09-28 13:26 | XRay Report ---
LEFT KNEE 2 VIEWS History: Left total knee arthroplasty. Degenerative arthritis. Postop. FINDINGS: The patient is status post a left total knee arthroplasty. The hardware is intact. No fract ure or dislocation. Skin reinaldo are in place. IMPRESSION: Left total knee arthroplasty. No evidence for hardware complication. ACT 112: Negative or not required by law. Electronically signed by: Kris Green M.D. 09/28/2022 1:24 PM
--- NOTE | 2022-09-28 14:03 | Anesthesiology Progress Note ---
Date of Service September 28, 2022 Anesthesia Post Procedure Vital Signs Vital Signs: Temp Pulse Pulse Resp BP Pulse Ox O2 Del Method 09/28/22 14:00 97.7 F 78 21 110/71 94 Room Air 09/28/22 13:50 72 19 129/79 94 Room Air 09/28/22 13:40 70 17 124/73 94 Room Air 09/28/22 13:30 66 18 128/74 96 Room Air 09/28/22 13:20 66 18 133/82 99 Room Air 09/28/22 13:10 71 18 129/72 100 Oxymask 09/28/22 13:00 69 16 107/64 100 Oxymask 09/28/22 12:53 97.9 F 71 16 94/60 L 99 Oxymask 09/28/22 09:30 98.6 F 87 20 127/83 95 Room Air O2 Flow Rate 09/28/22 14:00 09/28/22 13:50 09/28/22 13:40 09/28/22 13:30 09/28/22 13:20 09/28/22 13:10 4 09/28/22 13:00 4 09/28/22 12:53 4 09/28/22 09:30 Transfer of Care Handoff Completed per policy Notes Mental Status: alert / awake / arousable and participated in evaluation Patient Amnestic to Procedure: Yes Nausea / Vomiting: adequately controlled Pain: adequately controlled Airway Patency, RR, SpO2: stable & adequate BP & HR: stable & adequate Hydration State: stable & adequate Neuraxial Anesthesia: was administered and sensory block is resolving Anesthetic Complications: no major complications apparent and Pt Satisfied with anesthetic care
[2022-09-28] MEDS ORDERED: bisacodyL 10 MG SUPP PR PRN (14:39)
[2022-09-28] MEDS ORDERED: METOCLOPRAMIDE HCL INJ 5 MG/ML 2 ML VIAL IV PRN (14:39)
[2022-09-28] MEDS ORDERED: PHARMACY GLYCEMIC MGMT CONSULT PRN (14:39)
[2022-09-28] MEDS ORDERED: MAGNESIUM HYDROXIDE SUSP 30 ML UDC PO PRN (14:39)
[2022-09-28] MEDS ORDERED: valACYclovir HCL 500 MG TABLET PO PRN (14:39)
[2022-09-28] MEDS ORDERED: HYDROmorphone INJ 0.5 MG/0.5 ML SYR IV PRN (14:39)
[2022-09-28] MEDS ORDERED: NALOXONE HCL 0.4 MG/1 ML VIAL/CARP IV PRN (14:39)
[2022-09-28] MEDS: SODIUM CHLORIDE 0.9% 1000ML 1,000 ML IV SCH (15:07)
[2022-09-28] MEDS: ACETAMINOPHEN 500 MG TAB PO SCH ×2 (15:37→21:37)
[2022-09-28] MEDS: KETOROLAC 30 MG/ML VIAL IV SCH ×2 (16:59→21:39)
[2022-09-28] MEDS: ceFAZolin 2000MG 2,000 MG/15 ML SYR IV SCH (18:39)
[2022-09-28] MEDS ORDERED: VENLAFAXINE HCL XR 150 MG CAPXR PO SCH (21:00)
[2022-09-28] MEDS ORDERED: TEMAZEPAM 15 MG CAPSULE PO SCH (21:00)
[2022-09-28] MEDS ORDERED: SENNA 8.6 MG TAB PO SCH (21:00)
[2022-09-28] MEDS ORDERED: ROSUVASTATIN CALCIUM 20 MG TAB PO SCH (21:00)
[2022-09-28] MEDS: DOCUSATE SODIUM 100 MG CAP PO SCH (21:39)
[2022-09-29] MEDS: oxyCODONE HCL IR 5 MG TAB (IMMEDIATE RELEASE) PO PRN ×2 (01:09→08:27)
[2022-09-29] MEDS: SODIUM CHLORIDE 0.9% 1000ML 1,000 ML IV SCH (01:10)
[2022-09-29] MEDS: KETOROLAC 30 MG/ML VIAL IV SCH ×2 (03:27→10:39)
[2022-09-29] MEDS: ceFAZolin 2000MG 2,000 MG/15 ML SYR IV SCH (03:27)
[2022-09-29] MEDS: ACETAMINOPHEN 500 MG TAB PO SCH (06:25)
--- NOTE | 2022-09-29 07:57 | Orthopedic Progress Note ---
Date of Service September 29, 2022 Assessment & Plan (1) Status post left knee replacement: Overall she is doing very well. She is not having much pain in the left knee. She will be seen by physical therapy today for ambulation and range of motion exercises. She is on Eliquis for DVT prophylaxis. We will discontinue the [place] and send her home after therapy today. She will follow-up with orthopedics in 2 weeks. Lynette Núñez was seen and examined at bedside this morning. Overall she is doing very well. She is not having much pain in the left knee. She has been up and ambulating. She has no complaints.. Review of Systems All systems reviewed & are unremarkable except as noted in HPI & below. Physical Exam On physical examination of the left knee, the dressing is clean and dry. Her leg is out in full extension. She has active dorsiflexion plantarflexion of her left ankle.. Results & Data Results & Data Laboratory Results . Diagnostic Findings Postoperative x-rays of the left knee show the prosthesis to be in anatomic alignment without any evidence of fracture, desiccation, or loosening. PG Care Time/CCT Total # of Minutes Spent Total Time Spent with Patient: Total time spent is greater than 50% in coordination of care (as documented) at patient's floor/unit and/or counseling patient: Coding Level of Care Code 73793 Post Operative Follow-Up Diagnoses Status post left knee replacement Z96.652
--- NOTE | 2022-09-29 07:58 | Discharge Summary ---
Date of Service September 29, 2022 Admission HPI (Per Admitting) Kermit a pleasant 67-year-old female who has been dealing with chronic worsening left knee pain. She has a history of a right knee replacement done by Dr. Wen in the past. She did well with that.Unfortunately, sheis dealingwith a lotof left knee pain. She is havingdifficulty going up and down stairs. Sheis having difficulty doing her activities of daily living. She recently retired. X-rays have been diagnostic for advanced osteoarthritis of the left knee. After failing conservative treatment, she has elected to proceed with a left total knee arthroplasty. Admission Exam (Per Admitting) On physical examination of the left knee, she has a slight varus deformity. She has tenderness palpation of the distal medial femoral condyle and over the medial joint line.. Principal Diagnosis Same as "Discharge Diagnosis" noted below under Discharge Instructions. Discharge Exam On physical examination of the left knee, the dressing is clean and dry. Her leg is out in full extension. She has active dorsiflexion plantarflexion of her left ankle.. Discharge Data Procedures Performed Operation Date: 09/28/22 11:40 Actual Procedures p Left Total Knee Arthroplasty(Left) - Adalid Rahman DO Ordered Studies 09/28/22 05:00 US - OR guided needle placemen Routine Hospital Course (1) Status post left knee replacement: On September 28, 2022 Niya arrived at [facility] and underwent a left knee replacement without complication. She had a spinal anesthetic. Postoperatively she was started back on Eliquis for DVT prophylaxis and transferred to the general orthopedic floors. Her hospital course was uneventful. On postop day #1, her vital signs were stable and her pain was well controlled. She was able to participate well with physical therapy doing ambulation and range of motion exercises. She was then discharged home. She will follow-up with orthopedics in 2 weeks. PG Care Time/CCT Total # of Minutes Spent Total Time Spent with Patient: Total time spent is greater than 50% in coordination of care (as documented) at patient's floor/unit and/or counseling patient: Discharge Plan Discharge Items Patient Disposition: Home - Home Health Services Reason For Visit: DJD Knee Left Discharge Diagnosis: Left knee replacement Activity: Per Instructions section Non-emergency contact: Surgeon Call non-emergency contact if: your wound has increased redness and your wound has increased drainage Follow-up/Referrals: Praneeth Hennessy MD [Primary Care Provider] - Diet: Regular Addtl Attending Provider Instructions: Activity and Therapy Recommendations: * If you are using [facility] then therapy will be provided at your home until they feel you have accomplished all of your goals. * If you are using [facility] then Physical Therapy will be provided until they feel you are ready to start Outpatient Physical Therapy. * If you are not using home therapy then Outpatient Physical Therapy should start about 3-5 days from your day of surgery. Therapy will last about 6-10 weeks * It is important not to put a pillow under your knee when you are relaxing or sleeping. It is just as important to make sure you are getting your knee perfectly straight as it is to regain your knee bend. * You were shown a series of exercises in the hospital. Do these exercises three times each day including the exercises you were shown in physical therapy. * Get up and walk several times each day. For the first four weeks, try not to stand or walk for more than one hour at a time. If you do stand or walk for more than one hour, you will not hurt anything, but your leg will likely swell. * As you feel comfortable, you may change from the walker or crutches to a cane and then to independent walking. Medications: * Narcotic You will likely be sent home from the hospital with a prescription for the narcotic pain medication that worked best throughout your stay. * Eliquis- continue Eliquis as prescribed. * Other medications may be prescribed for specific circumstances. If you have any questions, please call the office at . * Resume previous home medications unless otherwise instructed TEDs/Elastic Stockings: The white elastic stockings help limit swelling and prevent blood clots from forming in your legs.~ The more you wear them, the more they work. Wear them for six weeks. Dressing Care: The dressing can be changed after physical therapy on postop day #1. Daily dry dressing changes for a few days, especially if the incision is still draining some. If the incision is not draining then you may leave the reinaldo open to air. If there is a little bit of drainage or if the reinaldo are getting stuck on your clothing then cover the incision with a dry dressing. The reinaldo will be removed at your 2 week follow-up appointment. Showering: You may shower 5 days from the day of surgery as long as the incision is no longer draining. You may shower with the reinaldo exposed. Let soapy water run over the reinaldo and pat them dry. Do not scrub or soak the incision. Things To Watch For: * Drainage from the incision site that occurs more than one week after your surg ciarra. * Increased redness at the incision site. * Fever above 102 degrees Fahrenheit. * Unusual chest pain or shortness of breath. * Call [facility] at with any of the above problems Follow-Up Visit: Follow-up with Dr. Rahman's PA (Adalid Ranegl) 2-3 weeks after your day of surgery. He will remove your reinaldo and answer any questions. If you have any additional questions or concerns, Dr Rahman is usually in the office at the same time and will be available An appointment was probably scheduled when you signed-up for surgery in the [facility]. If you have any questions call Office Instructions: More detailed instructions as well as Frequently Asked Questions were provided in a folder by our office when you signed-up for surgery. Please review these instructions when you get home. If you have any further questions or concerns, please feel free to call the office at [phone] Pending Studies at Discharge: No Stand-Alone Forms: My [facility] Medications and DC Order Prescriptions: New oxycodone-acetaminophen 5-325 mg tablet 1 tab PO Q6H PRN (Reason: pain) Qty: 30 0RF Continued valacyclovir 1 gram tablet 2,000 mg PO Q12H PRN (Reason: Cold Sores) venlafaxine 150 mg capsule,extended release 24hr 150 mg PO HS temazepam 15 mg capsule 30 mg PO HS bupropion HCl 300 mg tablet extended release 24 hr 300 mg PO QAM metoprolol succinate 50 mg Tablet Extended Release 24 Hr 50 mg PO QAM pantoprazole 20 mg Tablet,Delayed Release (Dr/Ec) 20 mg PO QAM rosuvastatin 20 mg Tablet 20 mg PO HS cholecalciferol (vitamin D3) [Vitamin D3] 50 mcg (2,000 unit) Capsule 50 mcg PO QAM Eliquis 5 mg Tablet 5 mg PO BID aspirin 81 mg Tablet 81 mg PO QAM Ozempic 0.25 mg or 0.5 mg(2 mg/1.5 mL) Pen Injector 0.5 mg SUBCUT WK Rx Instructions: MONDAYS aspirin 81 mg Discontinued hydrocodone-acetaminophen [Vicodin] 5-300 mg Tablet 1 - 2 tab PO Q8H PRN (Reason: Pain) Discharge Orders: Discharge Order (Routine); Ordered 09/29/22 Ordered By: Adalid Rahman Admission Data Admit Date/Time: 09/28/22 12:57 Attending Provider: Adalid Rahman Admit Provider: Adalid Rahman Primary Care Provider: Praneeth Hennessy
[2022-09-29] MEDS: DOCUSATE SODIUM 100 MG CAP PO SCH (08:27)
[2022-09-29] MEDS ORDERED: ASPIRIN 81 MG ECTAB PO SCH (09:00)
[2022-09-29] MEDS ORDERED: buPROPion XL 300 MG TABCR PO SCH (09:00)
[2022-09-29] MEDS ORDERED: APIXABAN 5 MG TABLET PO SCH (09:00)
[2022-09-29] MEDS ORDERED: MULTIVITAMIN TAB PO SCH (09:00)
[2022-09-29] MEDS ORDERED: METOPROLOL SUCC 50MG EXT REL TAB PO SCH (09:00)
[2022-09-29] MEDS ORDERED: PANTOprazole 40 MG TAB PO SCH (09:00)
== END 2022-09-29 11:30 | disposition home or self-care (01) ==
LOC: ASU 09:11 → 3E 09:11

== ENCOUNTER 2023-12-13 10:26 | Observation (INO) ==
--- NOTE | 2023-10-30 13:48 | PAT Medication Instructions ---
Medication Instructions Date of Service October 30, 2023 Home Medications Medication Instructions Recorded oxycodone-acetaminophen 5 mg-325 1 tab PO Q6H PRN pain #20 tabs 12/28/22 mg tablet (Percocet) bupropion HCl 300 mg 24 hr tablet, extended release 300 mg PO QAM valacyclovir 1 gram tablet 2,000 mg PO Q12H PRN venlafaxine 150 mg capsule,extended release 24 hr 150 mg PO HS apixaban 5 mg tablet (Eliquis) 5 mg PO BID cholecalciferol (vitamin D3) 50 mcg (2,000 unit) capsule (Vitamin D3) 50 mcg PO QAM metoprolol succinate 50 mg tablet,extended release 24 hr 50 mg PO QAM pantoprazole 20 mg tablet,delayed release 20 mg PO QAM rosuvastatin 20 mg tablet 20 mg PO HS aspirin 81 mg tablet 81 mg PO QAM oxycodone-acetaminophen 5 mg-325 mg tablet (Percocet) 1 tab PO Q6H PRN amoxicillin 500 mg tablet 2,000 mg PO UD PRN oxybutynin chloride 15 mg tablet,extended release 24 hr 15 mg PO QAM temazepam 30 mg capsule 30 mg PO HS Continue as directed amoxicillin 500 mg tablet 2,000 mg PO UD PRN(if needed) ASK your prescriber and surgeon apixaban 5 mg tablet (Eliquis) 5 mg PO BID aspirin 81 mg tablet 81 mg PO QAM DO NOT take the morning of surgery cholecalciferol (vitamin D3) 50 mcg (2,000 unit) capsule (Vitamin D3) 50 mcg PO QAM oxybutynin chloride 15 mg tablet,extended release 24 hr 15 mg PO QAM Take morning of surgery With a small sip of water, OTHERWISE NOTHING TO EAT OR DRINK AFTER MIDNIGHT: bupropion HCl 300 mg 24 hr tablet, extended release 300 mg PO QAM valacyclovir 1 gram tablet 2,000 mg PO Q12H PRN(if needed) metoprolol succinate 50 mg tablet,extended release 24 hr 50 mg PO QAM pantoprazole 20 mg tablet,delayed release 20 mg PO QAM oxycodone-acetaminophen 5 mg-325 mg tablet (Percocet) 1 tab PO Q6H PRN(if needed) Take evening before surgery valacyclovir 1 gram tablet 2,000 mg PO Q12H PRN(if needed) venlafaxine 150 mg capsule,extended release 24 hr 150 mg PO HS rosuvastatin 20 mg tablet 20 mg PO HS oxycodone-acetaminophen 5 mg-325 mg tablet (Percocet) 1 tab PO Q6H PRN(if needed) temazepam 30 mg capsule 30 mg PO HS Other Notes If you have any questions please call us at [phone] or [phone] or [phone] or [phone]
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
[~2023-12-13 10:26] MED LIST changes: +LIDOCAINE 2% 2 ML VIAL/AMP(20MG/ML) INFIL ONE; +LR 15ML/HR IV SCH; -LR 500ML BOLUS, THEN 15ML/HR IV SCH; +MIDAZOLAM HCL 1 MG/ML 2ML VIAL ONE; +ONDANSETRON INJ 2 MG/ML 2 ML VIAL ONE; -ORTHO JOINT MIX INFIL SCH; +PROPOFOL IV EMULSION 10 MG/ML 20 ML VIAL IV ONE; +ROPIV 0.5% 246mg, Ketorolac 30mg, EPINEPHrine 0.5mg in NSS INFIL SCH; -ROPIVACAINE 0.5% 5 MG/ML 30 ML VIAL ONE; -dexAMETHasone 4 MG TAB PO SCH; +dexAMETHasone**PF** 10 MG/ML VIAL IV SCH; +fentaNYL citrate PF 100 MCG/2 ML VIAL ONE
--- NOTE | 2023-12-13 11:15 | History & Physical Bridge Note ---
Date of Service December 13, 2023 History & Physical Bridge Note I have examined the patient, reviewed the History & Physical and in the interval since the performance of the History & Physical I have noted the following changes of clinical significance: no changes noted
[2023-12-13 11:24] LABS: INR 0.9 (0.9-1.1); Partial Thromboplastin Ratio 1.3; Partial Thromboplastin Time 36 Seconds (21-31); Prothrombin Time 10.3 Seconds (9.0-12.0)
[2023-12-13] MEDS ORDERED: ORTHO JOINT ANESTHETIC ONE (11:43)
[2023-12-13] MEDS ORDERED: KETOROLAC 30 MG/ML VIAL IV PRN (11:58)
[2023-12-13] MEDS ORDERED: PROMETHAZINE HCL 6.25 MG in SODIUM CHLORIDE 0.9% 50 ML IV PRN (11:58)
[2023-12-13] MEDS ORDERED: ATROPINE SULFATE 0.1 MG/ML 10ML SYR IV PRN (11:58)
[2023-12-13] MEDS ORDERED: fentaNYL citrate PF 100 MCG/2 ML VIAL IV PRN (11:58)
[2023-12-13] MEDS ORDERED: ePHEDrine sulfate 50 MG/5 ML SYR ONE (12:41)
--- NOTE | 2023-12-13 13:52 | Operative Report ---
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 A tenodesis was opted. This was a separate and distinct portion of the procedure. For these reasons, a CPT code modifier 59 will be added to this case. Implants used: I used a [employer] Comprehensive reverse total shoulder arthroplasty system with a size 10 press fit micro humeral stem, a +3 offset humeral tray and a +3 retentive humeral bearing, a 25 mm medium augment baseplate with a 6.5 mm central screw and superior and inferior locking screws, and a size 36mm eccentric glenosphere. Niya arrived at [facility] for the above procedure. She was seen in the preoperative holding area and the operative extremity was identified and signed. She was given a preoperative antibiotic, TXA, and an interscalene nerve block. She was taken back to the operating room, laid on table in supine position, and put under general anesthesia. She was then put into the beachchair position. The shoulder was then prepped and draped in sterile fashion. A timeout was done and the patient and the operative extremity was properly identified. A deltopectoral approach was used. Dissection was taken down through the fascia and the deltoid was retracted laterally and the conjoined tendon was retracted medially. The anterior shoulder was exposed. The biceps groove was opened up and the biceps tendon was examined extensively. The biceps tendon demonstrated enlargement and inflammatory changes consistent with longstanding inflammation in the context of osteoarthritis and cuff arthropathy. The long head of the biceps tendon was then tenodesed to the upper border of the pectoralis major. This was a separate and distinct portion of the procedure. The subscapularis was then directly released off the lesser tuberosity with a peel technique. The inferior capsule was released and the humeral head was dislocated. A canal finding reamer was sent down the center of the humeral canal. Sequential reaming up to a size 10 reamer was done. Off that reamer, a proximal humeral resection guide was placed. The proximal humerus was resected at 135 of inclination and 25 of retroversion. Osteophytes were then removed and the glenoid was exposed. Time was spent doing a complete capsular and labral release. A [employer] Signature One guide was then attached onto the anterior rim of the glenoid. A 3.2 mm Steinmann pin was then placed in the reverse total shoulder arthroplasty hole. The glenoid baseplate was then reamed. The final size 25 mm medium augment baseplate was then impacted in the place. A 6.5 mm central screw was then placed followed by superior and inferior locking screws. A 36mm eccentric glenosphere was then impacted into place. Surrounding soft tissues were then injected with 100 cc an orthopedic pain control cocktail. The proximal humerus was then exposed. Sequential broaching of the humerus up to a size 10 broach was done. Off that broach a +3 offset and +3 retentive humeral tray was trialed. The shoulder was then reduced, brought through a full range of motion, and felt to be stable. The shoulder was then dislocated and the broach was removed. The final size 10 micro press-fit humeral stem was then impacted into place. A +3 retentive humeral bearing was then snapped onto a +3 offset humeral tray. The humeral tray was then impacted onto the humeral stem. The shoulder was once again reduced, brought through a full range of motion, and felt to be stable. The subscapularis was then tenodesed back to the lesser tuberosity with transosseous FiberWire sutures and side to side sutures with the arm in 45 of external rotation. A dilute betadyne lavage was then done for 3 minutes. The joint was then irrigated with normal saline solution. Hemostasis was obtained. The interval was closed with 2-0 Vicryl suture. The skin was then closed with 2-0 Vicryl and reinaldo. A Silverlon dressing was placed and the arm was rested in a regular arm sling. She was then extubated and transferred to a hospital bed. She taken to the postanesthesia care unit in stable condition. She tolerated the procedure well. Adalid Rangel PA-C, was present for the entire procedure. He was critical for patient positioning, prepping, draping, retraction exposure, wound closure and application of sterile dressing. I attest to the content of the Intraoperative Record and any orders documented therein. Any exceptions are noted below.
--- NOTE | 2023-12-13 14:10 | XRay Report ---
XR shoulder RT min 2V routine HISTORY: 68 years-old Female Post shoulder surgery right shoulder arthroplasty COMPARISON: 11/05/2023 TECHNIQUE: 2 views of the right shoulder FINDINGS: Reverse right shoulder arthroplasty with overlying skin reinaldo, expected postoperative soft tissue s welling with deep tissue air. Chronic appearing right-sided rib fractures. No acute fracture or unexp ected opaque foreign body. IMPRESSION: Right shoulder arthroplasty with expected postoperative changes. ACT 112: Negative or not required by law. The above report was generated using voice recognition software. It may contain grammatical, syntax o r spelling errors. Electronically signed by: Vishal Rodriguez M.D. 12/13/2023 2:09 PM
[2023-12-13] MEDS ORDERED: SODIUM CHLORIDE 0.9% 1,000 ML IV SCH (14:44)
[2023-12-13] MEDS ORDERED: ONDANSETRON INJ 2 MG/ML 2 ML VIAL IV PRN (14:44)
[2023-12-13] MEDS ORDERED: valACYclovir HCL 500 MG TABLET PO PRN (14:44)
[2023-12-13] MEDS ORDERED: METOCLOPRAMIDE HCL INJ 5 MG/ML 2 ML VIAL IV PRN (14:44)
[2023-12-13] MEDS ORDERED: oxyCODONE HCL IR 5 MG TAB (IMMEDIATE RELEASE) PO PRN (14:44)
[2023-12-13] MEDS ORDERED: NALOXONE HCL 0.4 MG/1 ML VIAL/CARP IV PRN (14:44)
[2023-12-13] MEDS ORDERED: HYDROmorphone INJ 0.5 MG/0.5 ML SYR IV PRN (14:44)
[2023-12-13] MEDS ORDERED: bisacodyL 10 MG SUPP PR PRN (14:44)
[2023-12-13] MEDS ORDERED: MAGNESIUM HYDROXIDE SUSP 30 ML UDC PO PRN (14:44)
--- NOTE | 2023-12-13 15:17 | Anesthesiology Progress Note ---
Date of Service December 13, 2023 Anesthesia Post Procedure Vital Signs Vital Signs: Temp Pulse Pulse Resp BP Pulse Ox O2 Del Method 12/13/23 15:03 36.5 C 79 17 108/58 L 95 Nasal Cannula 12/13/23 14:45 36.8 C 79 16 124/83 93 Nasal Cannula 12/13/23 14:25 37.2 C 72 18 125/73 96 Nasal Cannula 12/13/23 14:15 73 19 121/70 96 Oxymask 12/13/23 14:05 77 18 115/75 98 Oxymask 12/13/23 13:55 77 16 139/70 100 Oxymask 12/13/23 13:49 36.2 C L 78 14 154/66 H 97 Oxymask 12/13/23 10:50 Room Air 12/13/23 10:50 36.8 C 75 20 118/69 96 Room Air O2 Flow Rate 12/13/23 15:03 2 12/13/23 14:45 2 12/13/23 14:25 2 12/13/23 14:15 2 12/13/23 14:05 13 12/13/23 13:55 13 12/13/23 13:49 13 12/13/23 10:50 12/13/23 10:50 Pain Intensity Right Shoulder: Pain Intensity: 8 Transfer of Care Handoff Completed per policy Notes Mental Status: alert / awake / arousable Patient Amnestic to Procedure: Yes Nausea / Vomiting: adequately controlled Pain: adequately controlled Airway Patency, RR, SpO2: stable & adequate BP & HR: stable & adequate Hydration State: stable & adequate Anesthetic Complications: no major complications apparent
--- OUTSIDE RECORDS SUMMARY | 2023-12-13 15:25 | External Medical Summary | Summary of Care ---
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 Name Role Phone Praneeth Hennessy MD Primary Care Provider [phone] Reason for Visit * Reason Comments Pre-op Clearance Encounter Details Date Type Department Care Team (Latest Contact Info) Description 12/05/2023 2:30 PM EST Office Visit Cardiology, [facility] [address] [place] [address] Anne Rios PA-C [address] [place] [address] Preoperative cardiovascular examination*; HTN, goal below 140/90; Paroxysmal atrial fibrillation (HCC); PVD (peripheral vascular disease) (HCC); Tobacco use disorder; Dyslipidemia, goal LDL below 70 Allergies No known active allergiesdocumented as of this encounter (statuses as of 12/05/2023) Medications Medication Sig Dispensed Refills Start Date End Date Status WELLBUTRIN XL 300 MG PO [id number]:Depr essive disorder, not elsewhere classified One pill by mouth once a day - from [place] 1 Tab 0 05/26/2012 Active VENLAFAXINE HCL ER 150 MG PO CP24 TAKE ONE CAPSULE EVERY EVENING 0 09/20/2014 Active Ferrous Sulfate (IRON) 325 (65 Fe) MG TABS Take 1 Tablet by mouth in the morning. 0 Active temazepam (RESTORIL) 15 MG Capsule Take 1 Capsule by mouth daily as needed. 0 10/02/2019 Active Multiple Vitamins-Minerals (MULTIVITAMIN ADULT) TABS Take by mouth 1 Tablet daily . 0 Active valACYclovir HCl 1 GM Oral Tablet (Valtrex)Indications :Cold sore TAKE 2 TABS BY MOUTH EVERY 12 HOURS. FOR COLD SORES 4 Tablet 11 11/14/2021 Active Additional Information Patient taking differently:2,000 mg OralPRN, for cold sores, Informant: Patient, Reported on 02/20/2023 CPAP every night at bedtime . 0 Active Nicotine 21 MG/24HR Transdermal Patch 24 Hour (Nicoderm CQ) Place topically on the skin 1 Patch in the morning. 28 Patch 1 07/31/2022 Active Additional Information Patient not taking.Reported on 12/04/2022 Metoprolol Succinate ER 50 MG Oral Tablet Extended Release 24 Hour (toPROL XL)Indications:HTN, goal below 140/90 TAKE 1 TABLET BY MOUTH EVERY DAY 90 Tablet 3 01/22/2023 Active Pantoprazole Sodium 20 MG Oral Tablet Delayed Release (Protonix)Indication s:Heartburn TAKE 1 TABLET BY MOUTH DAILY 30 MIN BEFORE THE 1ST MEAL OF THE DAY. DO NOT CRUSH, SPLIT, OR CHEW TAB 90 Tablet 3 01/23/2023 Active Vitamin D3 50 MCG (2000 UT) Oral CapsuleIndications:V itamin D deficiency Take 1 Capsule by mouth in the morning. 90 Capsule 3 06/12/2023 Active oxyBUTYnin Chloride ER 15 MG Oral Tablet Extended Release 24 Hour (Ditropan XL) Take 1 Tablet by mouth in the morning. 90 Tablet 3 09/16/2023 Active Rosuvastatin Calcium 20 MG Oral Tablet (Crestor) TAKE 1 TABLET BY MOUTH EVERYDAY AT BEDTIME 90 Tablet 2 10/01/2023 Active Eliquis 5 MG Oral Tablet (Apixaban) TAKE 1 TABLET BY MOUTH TWICE A DAY 180 Tablet 3 11/12/2023 Active HYDROcodone-Acetamin ophen 5-325 MG Oral TabletIndications:Pr imary osteoarthritis of both knees Take 1-2 Tablets by mouth every 8 hours as needed for Pain, Mild, Pain, Moderate or Pain, Severe. 45 Tablet 0 11/13/2023 Active Mounjaro 2.5 MG/0.5ML Subcutaneous Solution Pen-injector (Tirzepatide)Indicat ions:Class 2 severe obesity with serious comorbidity and body mass index (BMI) of 38.0 to 38.9 in adult, unspecified obesity type (HCC),Prediabetes Inject 2.5 mg under the skin once a week. 2 mL 11 12/03/2023 5 Active Additional Information Patient not taking.Reported on 12/05/2023 documented as of this encounter (statuses as of 12/05/2023) Active Problems Problem Noted Date Diagnosed Date PVD (peripheral vascular disease) 07/19/2022 ADVANCE DIRECTIVE INFORMATION 06/14/2022 Overview: No, Advance Directive brochure given to patient. Major depressive disorder wi th single episode, in full remission 09/12/2021 Food insecurity 06/26/2021 Overview: Per [facility] Protocol Urge incontinence 10/21/2020 Urinary incontinence without sensory awareness 1 12/22/2019 Nocturnal enuresis 10/21/2020 Continuous leakage of urine 10/21/2020 Stress incontinence 10/21/2020 Feeling of incomplete bladder emptying 0 Paroxysmal atrial fibrillation 10/12/2020 Cerebrovascular disease, arteriosclerotic, post- stroke 05/26/2020 Obesity, Class II, BMI 35-39.9, isolated (see ac tual BMI) 10/02/2017 Pericardial effusion 06/20/2015 Dyslipidemia, goal LDL below 70 11/09/2014 Mild obstructive sleep apnea 2014 Overview: Auto CPAP 6 cwp [facility] GERD (gastroesophageal reflux disease) 2 HTN, goal below 140/90 05/26/2012 Benign neoplasm of colon 07/13/2008 Overview: adenomatous and hyperplastic/repeat colonoscopy in 3-5 yrs Herpes zoster 03/31/2003 Major depressive disorder Overview: ICD-10 update of inactive term Tobacco use disorder documented as of this encounter (statuses as of 12/05/2023) Resolved Problems Problem Noted Date Diagnosed Date Resolved Date Acquired absence of foot 12/04/2022 Blue toe syndrome of right lower extremity 08/22/2022 12/04/2022 Body mass index (BMI) of 40. 0 to 44.9 in adult 03/28/2021 09/12/2021 Overview: Per Obesity protocol OBESITY, BMI 30-34 (SEE ACTUAL BMI) 2010 10/02/2017 Overview: Per Obesity Taxonomy Dyslipidemia, goal to be determined 10/27/2009 05/26/2012 Overview: Per Lipid Taxonomy. Mixed dyslipidemia 09/09/2008 9 Overview: Per Lipid Taxonomy. Palpitations 01/24/2001 05/26/2012 Heartburn 05/26/2012 OBESITY, UNSPECIFIED 010 Overview: Per Obesity Taxonomy documented as of this encounter (statuses as of 12/05/2023) Immunizations Name Administration Dates Next Due COVID-19 mRNA, LNP-s, No Pre serve, 2-Dose Series (Pfizer) 03/02/2021,2021 Pneumococcal Conjugate Vacci ne, 20-valent ([id number]) 12/04/2022 Pneumococcal Polysaccharide PPV23 (Pneumovax) 10/16/2012 Seasonal Influenza Virus Vac cine, Unspecified Formulation 09/19/2022,09/12/2021,08/11/2020 Seasonal Influenza, PF, 6 M & above, IM , (FluLaval or Fluzone) 09/12/2021,08/11/2020 Seasonal Influenza, Quadriva lent Hd (Fluzone Hd) 08/30/2023,09/19/2022 TDAP (age 11 and older)(Adacel) 09/01/2010 09/01/2020 documented as of this encounter Social History Tobacco Use Types Packs/Day Years Used Date Smoking Tobacco: Every Day Cigarettes 0.5 48 Smokeless Tobacco: Never Tobacco Cessation:Ready to Q uit: Not Asked; Counseling Given: Not Answered Alcohol Use Standard Drinks/Week Comments No 0 (1 standard drink = 0.6 oz pur e alcohol) PHQ-2 Answer Date Recorded PHQ Adult Total Score 0 12/04/2022 Hunger Vital Sign Answer Date Recorded Within the past 12 months, y ou worried that your food would run out before you got the money to buy more. Never true Within the past 12 months, t he food you bought just didn't last and you didn't have money to get more. Sometimes true Sex and Gender Information Value Date Recorded Sex Assigned at Female 03/25/2020 10:35 AM EDT Gender Identity Female 03/25/2020 10:35 AM EDT Sexual Orientation Straight 03/25/2020 10 :35 AM EDT Job Start Date Occupation Industry Not on file Not on file Not on file documented as of this encounter Last Filed Vital Signs Vital Sign Reading Time Taken Comments Blood Pressure 126/74 12/05/2023 2:24 PM EST Pulse 80 12/05/2023 2:24 PM EST Temperature - - Respiratory Rate - - Oxygen Saturation 95% 12/05/2023 2:24 PM EST Inhaled Oxygen Concentration - - Weight 97.5 kg (215 lb) 12/05/2023 2:24 PM EST Height - - Body Mass Index 36.9 03/07/2023 1:52 PM EDT documented in this encounter Functional Status Functional Status Response Date of Assess ment Are you deaf or do you have serious difficulty h earing? No 07/19/2022 Are you blind or do you have serious difficulty seeing, even when wearing glasses? No 07/19/2022 Do you have serious difficul ty walking or climbing stairs? (5 years old or older) No 07/19/2022 Do you have difficulty dress ing or bathing? (5 years old or older) No 07/19/2022 Because of a physical, menta l, or emotional condition, do you have difficulty doing errands alone such as visiting a doctor s office or shopping? (15 years old or older) No 07/19/20 Cognitive Status Response Date of Assessm ent Because of a physical, menta l, or emotional condition, do you have serious difficulty concentrating, remembering, or making decisions? (5 years old or older) No 07/19/2022 documented as of this encounter Patient Instructions * Patient Instructions* Anne Rios PA-C - 12/05/2023 2:50 PM EST Stop Eliquis for 2 days prior to surgery. So the last dose will be Dec 10 in the PM. You will not take the Eliquis Dec 11 or Dec 12. Resume after surgery, when ok with surgeon. Continue your aspirin 81 mg every day. Do not stop Take your metoprolol the morning of your surgery as well. documented in this encounter Progress Notes * Anne Rios PA-C - 12/05/2023 2:35 PM EST 12/05/2023 Cardiology F/U and Preoperative Evaluation: Subjective: Patient is a 68 year old female here today for routine cardiology follow-up and preoperative cardiology evaluation prior to undergoing right total shoulder replacement scheduled for December 13, 2023 at [facility] with Dr. Rahman. Last clinic evaluation approximately [address] Medel. She carries a history of paroxysmal atrial fibrillation, cardio embolic CVA, peripheral vascular disease status post recent toe amputation in femoral endarterectomy, hypertension, dyslipidemia and chronic posterior loculated pericardial effusion. Right femoral endarterectomy with pericardial patch a ngioplasty and aortogram of the bilateral lower extremities, right 5th toe amputation performed July 19, [address] Ag. Patient presents today feeling well. Denies acute cardiac complaints. No interim hospitalizations. No recent palpitations or tachy palpitations. Blood pressure well controlled. No recent chest pain or unusual shortness of breath. 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 No exertional complaints. Review of Systems: See HPI for pertinent positives. All others negative, other than those noted in HPI. Per prior office notes with Dr. Medel -Cardiac history: Admitted to [facility] in March 2020 secondary to slurred speech and facial droop. MRI demonstrated multiple scattered small infarcts within the brain , right side greater than left. Patient evaluated by Neurology. CVA attributed to right middle cerebral artery embolic events. Discharged home on dual anti-platelet therapy. 14 day ZIO monitor performed after discharge demonstrated brief salvos of atrial fibrillation and supraventricular tachycardia. Eliquis appropriately initiated by primary care. Clopidogrel and aspirin discontinued. Cardiac studies/labs: EKG performed today and reviewed personally: Normal sinus rhythm with sinus arrhythmia Normal ECG When compared with ECG of 20-FEB-2023 14:41, No significant change was found 2D echocardiogram report July 19, 2022: The qualitative LV ejection fraction is 65-69% (normal). No LV segmental wall motion abnormalities. The right ventricular cavity size is normal (basal dimension < 4.2 cm RV apical 4 chamber view).The right ventricular systolic function is qualitatively normal. A small posterior loculated pericardial effusion is present. Cardiac tamponade is absent. Nuclear Lexiscan stress test report reviewed dated July 2020: Myocardial perfusion imaging is normal. Overall left ventricular systolic function was normal without regional wall motion abnormalities. The left ventricular ejection fraction was >70%. There are no prior studies available for comparison. 14 day ZIO report 03/2020: CVA;14 days CONCLUSIONS: Patient had a min HR of 63 bpm, max HR of 167 bpm, and avg HR of 88 bpm. Predominant underlying rhythm was Sinus Rhythm. 781 Supraventricular Tachycardia runs occurred, the run with the fastest interval lasting 11 beats with a max rate of 167 bpm, the longest lasting 19.4 secs with an avg rate of 119 bpm. Isolated SVEs were rare (<1.0%), SVE Couplets were rare (<1.0%), and SVE Triplets were rare (<1.0%). Isolated VEs were rare (<1.0%), and no VE Couplets or VE Triplets were present. I agree with the above findings and interpretation. The patient's episodes of SVT are most likely paroxysmal atrial fibrillation. 2D echocardiogram report summary March 20, 2020: Preserved LV systolic function ejection fraction 55 to 60%. Borderline concentric left ventricular hypertrophy. Intact interatrial septum without evidence of interatrial shunt. Mild left atrial enlargement Stress Echo 10/05/14: STRESS STUDY: The stress echo is negative for inducible ischemia. Occasional PVCs were noted at rest, and were resolved during exercise. The PVCs returned in the post exercise recovery interval. The exercise test was terminated due to fatigue and shortness of breath having achieved her target heart rate. No chest discomfort was reported. Exercise capacity is below average . RESTING STUDY: A small posterior loculated pericardial effusion is present. Cardiac tamponade is absent. Refer to report of prior study dated 08/23/14 for details of complete resting study. Past Medical History: Patient Active Problem List Diagnosis Code Major depressive disorder F32.9 Tobacco use disorder F17.200 Herpes zoster B02.9 ADVANCE DIRECTIVE INFORMATION Benign neoplasm of colon D12.6 GERD (gastroesophageal reflux disease) K21.9 HTN, goal below 140/90 I10 Mild obstructive sleep apnea G47.33 Dyslipidemia, goal LDL below 70 E78.5 Pericardial effusion I31.39 Obesity, Class II, BMI 35-39.9, isolated (see actual BMI) E66.9 Cerebrovascular disease, arteriosclerotic, post-stroke I67.2, Z86.73 Paroxysmal atrial fibrillation (HCC) I48.0 Urge incontinence N39.41 Urinary incontinence without sensory awareness N39.42 Nocturnal enuresis N39.44 Continuous leakage of urine N39.45 Stress incontinence N39.3 Feeling of incomplete bladder emptying R39.14 Food insecurity Z59.41 Major depressive disorder with single episode, in full remission ([facility]) F32.5 PVD (peripheral vascular disease) ([facility]) I73.9 Past Surgical History: Procedure Laterality Date AMPUTATION OF TOE & METATARSAL Right 07/19/2022 AMPUTATION METATARSAL WITH TOE performed by Avery Betancourt MD at [place] [facility] [place] Delivery Only DELIVERY Delivery Only COLONOSCOPY W/ BIOPSY (RECTUM) 07/13/2008 repeat in3-5 yrs/adenomatous and hyperplastic COLONOSCOPY, DIAGNOSTIC (RECTUM) 10/28/2012 COLONOSCOPY FLEXIBLE PROXIMAL DIAGNOSTIC performed by Merlyn Gottlieb DO at ENDOSCOPY [facility],ADENOMATOUS POLYP REPEAT COLONOSCOPY IN 5 YEARS COLONOSCOPY, DIAGNOSTIC (RECTUM) 01/07/2018 normal, repeat 5 yrs/COLONOSCOPY FLEXIBLE PROXIMAL DIAGNOSTIC performed by Merlyn Gottlieb DO at ENDOSCOPY [facility] ENDART COMMON FEMORAL Right 07/19/2022 COMMON FEMORAL ENDARTERECTOMY performed by Avery Betancourt MD at [place] [facility] FEM/POP ARTERY REVASC W/ STENT+ANGIOPLASTY Right 07/19/2022 FEM/POP ARTERY REVASC W/ STENT+ANGIOPLASTY performed by Avery Betancourt MD at [place] [facility] IMPLANT NEUROELECTRODES, SACRAL 05/11/2022 PERCUTANEOUS IMPLANTATION NEUROSTIMULATOR SACRAL NERVE performed by Steve Burns MD at OR [facility] INSERT OR REPLACE OF PERIPHERAL OR GASTRIC NEUROSTIM PULSE GENERATOR OR THERAPY SITE COORDINATOR 05/18/2022 [facility] NEUROSTIM INSERT/REPLACE performed by Steve Burns MD at OR [facility] LIGATE/CUT OVIDUCT(S) AL ARTHRP KNE CONDYLE&PLATU MEDIAL&LAT COMPARTMENTS Left 09/18/2022 TOTAL KNEE REPLACEMENT EDU. Right 06/14/2016 Family History: Brother with coronary artery bypass grafting at age 59, father with myocardial infarction at age 47. Family History Problem Relation Age of Onset Hypertension Mother Dementia Mother Endocrine Disorder Mother thyroid, obesity, Now 82. [place] [facility] [place] Stroke Mother Heart Disorder Father MD at 47, CABG 1990, MD passed ' Endocrine Disorder Sister DM Heart Disorder Sister 49 CABG x 2, history of heart failure Kidney disease Sister Heart Disorder Brother CABG, at 59 Other (MADHU) Son Not treating Obesity Son Social History: Active tobacco abuse, 1/2 pack per day Social History Tobacco Use Smoking status: Every Day Packs/day: 0.50 Years: 48.00 Additional pack years: 0.00 Total pack years: 24.00 Types: Cigarettes Smokeless tobacco: Never Vaping Use Vaping Use: Never used Substance Use Topics Alcohol use: No Alcohol/week: 0.0 standard drinks of alcohol Drug use: No Review of patient's allergies indicates: No Known Allergies Current Outpatient Medications Medication Sig Dispense Refill WELLBUTRIN XL 300 MG PO TB24 One pill by mouth once a day - from [place] 1 Tab 0 VENLAFAXINE HCL ER 150 MG PO CP24 TAKE ONE CAPSULE EVERY EVENING 0 Ferrous Sulfate (IRON) 325 (65 Fe) MG TABS Take 1 Tablet by mouth in the morning. temazepam (RESTORIL) 15 MG Capsule Take 1 Capsule by mouth daily as needed. 0 Multiple Vitamins-Minerals (MULTIVITAMIN ADULT) TABS Take by mouth 1 Tablet daily . Metoprolol Succinate ER 50 MG Oral Tablet Extended Release 24 Hour (toPROL XL) TAKE 1 TABLET BY MOUTH EVERY DAY 90 Tablet 3 Pantoprazole Sodium 20 MG Oral Tablet Delayed Release (Protonix) TAKE 1 TABLET BY MOUTH DAILY 30 MIN BEFORE THE 1ST MEAL OF THE DAY. DO NOT CRUSH, SPLIT, OR CHEW TAB 90 Tablet 3 Vitamin D3 50 MCG (2000 UT) Oral Capsule Take 1 Capsule by mouth in the morning. 90 Capsule 3 oxyBUTYnin Chloride ER 15 MG Oral Tablet Extended Release 24 Hour (Ditropan XL) Take 1 Tablet by mouth in the morning. 90 Tablet 3 Rosuvastatin Calcium 20 MG Oral Tablet (Crestor) TAKE 1 TABLET BY MOUTH EVERYDAY AT BEDTIME 90 Tablet 2 Eliquis 5 MG Oral Tablet (Apixaban) TAKE 1 TABLET BY MOUTH TWICE A DAY 180 Tablet 3 HYDROcodone-Acetaminophen 5-325 MG Oral Tablet Take 1-2 Tablets by mouth every 8 hours as needed for Pain, Mild, Pain, Moderate or Pain, Severe. 45 Tablet 0 valACYclovir HCl 1 GM Oral Tablet (Valtrex) TAKE 2 TABS BY MOUTH EVERY 12 HOURS. FOR COLD SORES (Patient taking differently: Take 2 Tablets by mouth as needed. for cold sores) 4 Tablet 11 CPAP every night at bedtime . Nicotine 21 MG/24HR Transdermal Patch 24 Hour (Nicoderm CQ) Place topically on the skin 1 Patch in the morning. (Patient not taking: Reported on 08/21/2022) 28 Patch 1 Mounjaro 2.5 MG/0.5ML Subcutaneous Solution Pen-injector (Tirzepatide) Inject 2.5 mg under the skinonce a week. (Patient not taking: Reported on 12/05/2023) 2 mL 11 No current facility-administered medications for this visit. OBJECTIVE/PHYSICAL EXAMINATION: BP 126/74 | Pulse 80 | Wt 97.5 kg (215 lb) | LMP 01/22/2003 | SpO2 95% | BMI 36.90 kg/m | BSA 2.1m General: NAD, AAO x3, well nourished. HEENT: Normocephalic. Atraumatic. Conjunctiva pink, no scleral icterus. No carotid bruits, the carotid upstrokes are brisk. No JVD. No HJR Heart: Regular normal S-1 and S-2 no S-3 or S-4 gallop. No murmurs or rubs appreciated. PMI is not displaced. No RV heave.Lungs: Clear bilateral without rales , rhonchi, or wheeze. Abdomen: Normal bowel sounds. Soft. Nontender. No masses or organomegaly. No abdominal bruits. Extremities: No clubbing, cyanosis, or edema.Pulses: radial=2/4, posterior tibial=2/4 B/L. Neuro: No focal deficits. Latest Reference Range & Units 08/30/23 09:31 Triglycerides <=174 mg/dL 112 Cholesterol <200 mg/dL 138 Non-HDL Cholesterol <=159 mg/dL 78 HDL Cholesterol >49 mg/dL 60 LDL Cholesterol <=129 mg/dL 56 Latest Reference Range & Units 08/30/23 09:31 Sodium 135 - 146 mmol/L 142 Potassium 3.5 - 5.1 mmol/L 4.1 Chloride 98 - 107 mmol/L 105 CO2 22 - 32 mmol/L 26 BUN 6 - 20 mg/dL 22 (H) Creatinine 0.5 - 1.0 mg/dL 1.0 Estimated Glomerular Filtration Rate >=60 mL/min 65 Anion Gap 7 - 15 mmol/L 11 Glucose 70 - 120 mg/dL 78 Calcium 8.4 - 10.2 mg/dL 9.8 Protein 6.0 - 8.3 g/dL 6.7 (H): Data is abnormally high IMPRESSION: 68 year old female 1. Paroxysmal atrial fibrillation - Sinus rhythm on EKG today -No recent palpitations, sustained tachypalpitations -continue metoprolol and Eliquis 2. Cerebrovascular accident due to embolic event -patient not anticoagulated at time of CVA -tolerating Eliquis plus aspirin 3. Dyslipidemia goal LDL less than 70 mg/dL - controlled 4. Tobacco abuse, 11/19 ppd 5. PVD status right femoral endarterectomy and toe amputation 08/2022 6. Obesity with MADHU 7. Family history of premature coronary disease 8. Cardiovascular Preoperative evaluation and risk assessment prior to undergoing right total shoulder replacement on 12/13/[address] Rahman at [facility] RECOMMENDATIONS/PLAN: Stable cardiac symptoms. No recent afib events. No anginal complaints. Normal EKG today. BP controlled We discussed her surgical risks. Considered low to moderate risk for perioperative cardiac complications given her history. We discussed the need to hold Eliquis prior to surgery. Given her history of embolic CVA, she is aware of recurrent stroke risks. Will limit hold to 2 days prior to surgery. Last dose would be 3 days before in the evening. Instructions provided. She will continue ASA 81 mg daily and metoprolol without interruption. Further cardiac testing is not warranted prior to planned surgery. Smoking cessation strongly advised. The patient is to continue all current medications as listed above. No changes were made at today'svisit. Patient Instructions Stop Eliquis for 2 days prior to surgery. So the last dose will be Dec 10 in the PM. You will not take the Eliquis Dec 11 or Dec 12. Resume after surgery, when ok with surgeon. Continue your aspirin 81 mg every day. Do not stop Take your metoprolol the morning of your surgery as well. I spent a total of 40 minutes on the date of service in preparation, delivery, and documentation ofthe care provided to Niya Ng excluding any time spent in the performance of separately billedservices. The patient agrees to the above plan and will call with additional questions or concerns. ER with all emergencies advised. Check-out note: Print instructions Cancel January appt Reschedule [address] Gianfranco Rios PA-C Department of Cardiology This chart was completed in part utilizing [employer] Speech Voice Recognition Software. Grammatical errors, random word insertions, prounoun errors, and incomplete sentences are an occasional consequence of this system due to software limitations, ambient noise, and hardware issues. Any formal questions or concerns about the content, text, or information contained within the body of this dictation should be directly addressed to the provider for clarification. documented in this encounter Procedure Notes * Steve Riggs DO - 12/05/2023 2:31 PM ESTAssociated Order(s): EKG REASON FOR STUDY: routine CONCLUSIONS: Normal sinus rhythm with sinus arrhythmia Normal ECG When compared with ECG of 20-FEB-2023 14:41, No significant change was found Ventricular Rate: 72 Atrial Rate: 72 AL Interval: 154 QRS Duration: 86 QT/QTc: 376/411 ms P-R-T [place]: 50 : -9 : 19 degrees documented in this encounter Nursing Notes * Susie Jacob CMA - 12/05/2023 2:24 PM EST Examination Room: 6 Name: Niya Ng Date of : (1955) Reason for Visit: pre op Interim Hospitalization(s): none Problems/Concerns: denied Chest Pain/SOB: denied My [facility] is a way you can talk to your provider online through e-mail. Would you like to sign up? I can activate it for you? ALREADY ACTIVE Patient was instructed to not get up on the exam table until directed and assisted by their provider; patient is to remain seated in the chair/ wheelchair/ exam table for fall prevention and safety reasons. Patient is aware to have assistance to step down off exam table with personnel. Patient voiced full comprehension of instructions. documented in this encounter Plan of Treatment Upcoming Encounters Date Type Department Care Team (Late st Contact Info) Description 12/30/2023 3:00 PM EST Office Visit Located Within [facility] [address] [place] [address] Praneeth Hennessy MD [address] [place] [address] 02/12/2024 1:00 PM EDT Office Visit Cardiology, [facility] [address] [place] [address] Anne Rios PA-C [address] [place] [address] 03/11/2024 10:00 AM EDT Telemedicine Sleep Disorders Ctr [facility] [address] [place] [phone] Jigna Hay CRNP [address] [place] [address] 09/16/2024 1:15 PM EDT Office Visit Urogynecology [facility] [address] [place] [address] Tiago Fox MD [address] [place] [address] Nurse Arron Forrester [address] [place] [address] Scheduled Procedures Name Priority Associated Diagnoses Date/Ti me COLONOSCOPY FLEXIBLE PROXIMAL DIAGNOSTIC Recall History of colon polyps Health Maintenance Due Date Last Done Comments DISCUSS TOBACCO CESSATION (REFER TO SMARTSET #7488) 1955 Zoster Vaccines (1 of 2) 2007 DTaP,Tdap,and Td Vaccines (2 - Td or Tdap) 09/01/2020 09/01/2010, 10/16/2002, 02/16/1991 COLONOSCOPY-EVERY 5 YRS AGES 18-100 01/07/2023 01/07/2018, 01/07/2018, 10/30/2012, Additional history exists DXA Scan 02/14/2023 02/15/2016, 10/05/2008 COVID-19 Vaccine ( - season) 2023 03/02/2021, 2021 Depression Screening 12/04/2023 12/04/2022 Mammogram 07/12/2024 07/12/2023, 06/2021, 09/03/2019, Additional history exists GFR 08/30/2024 08/30/2023, 12/2021, 07/19/2022, Additional history exists Albumin/Creatinine Ratio 04/30/2025 04/30/2022 Diabetes Screening 08/30/2026 08/30/2023, 0 07/20/2022, 07/19/2022, Additional history exists Pap Smear Discontinued 05/01/2016, 04/18, 10/16/2012, Additional history exists LUNG CANCER SCREENING - USE SMARTSET 39170 Completed 07/10/2022 Pneumococcal Vaccine: 65+ Years Completed 12/04/2022, 10/16/2012 Influenza Vaccine (FLU shot) Completed 08/30/2023, 09/19/2022, 09/19/2022, Additional history exists GARDASIL-HPV IMMUNIZATION SERIES Aged Out No longer eligible based on patient's age to complete this topic Hepatitis B Aged Out No longer eligi ble based on patient's age to complete this topic MENINGOCOCCAL (MENACTRA/MENVEO) Aged Out No longer eligible based on patient's age to complete this topic documented as of this encounter Medical Devices Implanted Type Area Route Delivery Driver Device Identifier Shelf Expiration Date Model / Serial / Lot Kit Tined Lead - [id number] - [id number] Implanted:Qty: 1 on 05/11/2022 by Steve Burns MD at OR [facility] [employer] 08/12/2023 1201 / [id number] / Neurostimulator - [id number] - [id number] Implanted:Qty: 1 on 05/18/2022 by Steve Burns MD at OR [facility] Back [employer] 04/07/2024 1101 / [id number] / Patch Xenosure [id number] - [id number] Implanted:Qty: 1 on 07/19/2022 by Avery Betancourt MD [place] [facility] Right: Femoral Artery [employer] [id number] 02/13/2028 E0.8P8 / [id number] / [id number] documented as of this encounter Procedures Procedure Name Priority Date/Time Associated Diagnosis Comments AL ECG ROUTINE ECG W/LEAST 12 LDS W/I&R Routine 12/05/2023 2:31 PM EST HTN, goal below 140/90 Paroxysmal atrial fibrillation (HCC) Preoperative cardiovascular examination documented in this encounter Results * EKG (12/05/2023 2:31 PM EST) 12/05/2023 2:31 PM EST Narrative Procedure Note Steve Riggs, - 12/05/2023 2:31 PM EST REASON FOR STUDY: routine CONCLUSIONS: Normal sinus rhythm with sinus arrhythmia Normal ECG When compared with ECG of 20-FEB-2023 14:41, No significant change was found Ventricular Rate: 72 Atrial Rate: 72 AL Interval: 154 QRS Duration: 86 QT/QTc: 376/411 ms P-R-T [place]: 50 : -9 : 19 degrees Anne Rios PA-C EKG [facility] CARDIOLOGY documented in this encounter Visit Diagnoses Diagnosis Preoperative cardiovascular examination- Primary Pre-operative cardiovascular examination HTN, goal below 140/90 Unspecified essential hypertension Paroxysmal atrial fibrillation (HCC) Atrial fibrillation PVD (peripheral vascular disease) (HCC) Peripheral vascular disease, unspecified Tobacco use disorder Dyslipidemia, goal LDL below 70 Other and unspecified hyperlipidemia documented in this encounter Advance Directives Latest Code Status on File Code Status Date Activated Date Inactivated Comments Full Code 07/19/2022 1:52 PM 07/20/2022 5:28 PM This or abhishek reflects the patients wishes and were consensually agreed upon. Question Answer Comments Discussion of Advance Directives occurred with: Not Discussed due to patient's condition Does the patient have a Living Will? No Does the patient have Health Care Power of Industrial Health And Safety Professor? No Code Status History Code Status Date Activated Date Inactivated Comments Full Code 05/18/2022 2:31 PM 05/18/2022 8:21 PM This or abhishek reflects the patients wishes and were consensually agreed upon. Full Code 05/11/2022 11:28 AM 05/11/2022 5:45 PM This order reflects the patients wishes and were consensually agreed upon. Question Answer Comments Discussion of Advance Directives occurred with: Not Discussed Care Teams Aluminum Sheet Cutter Relationship Specialty Start Date End Date Praneeth Hennessy MD [address] [place] [address] PCP - General 02/10/03 documented as of this encounter"
--- OUTSIDE RECORDS SUMMARY | 2023-12-13 15:25 | External Medical Summary | Summary of Care ---
Author Name Unknown Organization [facility] Address [address] [place] [address] Phone [phone] Care Team Providers Care Php Programmer Name Role Phone Praneeth Hennessy MD Primary Care Provider +1- [phone] Reason for Visit * Reason Onset Date Comments Pre Cert/Prior Auth 12/12/2023 Zepbound was denied Encounter Details Date Type Department Care Team (Late st Contact Info) Description 12/12/2023 Telephone [facility] [address] [place] [address] Praneeth Hennessy MD [address] [place] [address] Pre Cert/Prior Auth (Zepbound was denied) Allergies No known active allergiesdocumented as of this encounter (statuses as of 12/12/2023) Medications Medication Sig Dispensed Refills Start Date End Date Status WELLBUTRIN XL 300 MG PO [id number]:Dep ressive disorder, not elsewhere classified One pill by [...] Active valACYclovir HCl 1 GM Oral Tablet (Valtrex)Indication s:Cold sore TAKE 2 TABS BY MOUTH EVERY [...] Sodium 20 MG Oral Tablet Delayed Release (Protonix)Indicatio ns:Heartburn TAKE 1 TABLET BY MOUTH DAILY 30 MIN BEFORE THE 1ST MEAL OF THE DAY. DO NOT CRUSH, SPLIT, OR CHEW TAB 90 Tablet 3 01/23/2023 Active Vitamin D3 50 MCG (1999 UT) Oral CapsuleIndications: Vitamin D deficiency Take 1 Capsule by mouth [...] A DAY 180 Tablet 3 11/12/2023 Active HYDROcodone-Acetami nophen 5-325 MG Oral TabletIndications:P rimary osteoarthritis of both knees Take 1-2 Tablets by mouth every 8 hours as needed for Pain, Mild, Pain, Moderate or Pain, Severe. 45 Tablet 0 12/08/2023 Active Zepbound 2.5 MG/0.5ML Subcutaneous Solution Auto-injector (Tirzepatide-Weight Management)Indicati ons:Class 2 severe obesity with serious comorbidity and body mass index (BMI) of 38.0 to 38.9 in adult, unspecified obesity type (HCC),Prediabetes Inject 2.5 mg subcutaneously once per week 2 mL 5 12/06/2023 Active documented as of this encounter (statuses as of 12/12/2023) Active Problems Problem Noted Date Diagnosed Date [...] apnea 2014 Overview: Auto CPAP 6 cwp [facility] GERD (gastroesophageal reflux disease) 2 HTN, goal below 140/90 05/26/2012 Benign neoplasm of colon 07/13/2008 Overview: adenomatous and hyperplastic/repeat colonoscopy in 3-5 yrs Herpes zoster 03/31/2003 Major depressive disorder Overview: ICD-10 update of inactive term Tobacco use disorder documented as of this encounter (statuses as of 12/12/2023) Resolved Problems Problem Noted Date Diagnosed Date [...] as of this encounter (statuses as of 12/12/2023) Immunizations Name Administration Dates Next Due COVID-19 mRNA, LNP-s, No Pre serve, 2-Dose Series (Pfizer) 03/02/2021,2021 Pneumococcal Conjugate Vacci ne, 20-valent ([id number]) 12/04/2022 Pneumococcal Polysaccharide PPV23 (Pneumovax) 10/16/2012 Seasonal [...] Day Cigarettes 0.5 48 Smokeless Tobacco: Never Alcohol Use Standard Drinks/Week Comments No 0 [...] on file documented as of this encounter Functional Status Functional Status Response [...] No 07/19/2022 documented as of this encounter Miscellaneous Notes * Telephone Encounter - Citlaly Yu LPN - 12/12/2023 7:06 PM EST Spoke with pt and made her aware of message below. * Telephone Encounter - Praneeth Hennessy MD - 12/12/2023 5:05 PM EST Let her know. I only ordered it because her insurance rep assured her that it would be covered. * Telephone Encounter - Citlaly Yu LPN - 12/12/2023 5:01 PM EST Pt's insurance denied coverage for Zepbound Please advise. documented in this encounter Plan of Treatment Upcoming Encounters Date Type Department Care Team (Late st Contact Info) Description 12/30/2023 3:00 PM EST Office Visit [facility] [address] [place] [facility] [phone] Praneeth Hennessy MD [address] [place] [facility] [place] [address] 02/12/2024 1:00 PM EDT Office Visit Cardiology, Health system [address] [facility] [place] [address] Anne Rios PA-C [address] [place] [address] 03/11/2024 10:00 AM EDT Telemedicine Sleep Disorders Ctr [facility] [address] [facility] [place] [phone] Jigna Hay CRNP [address] [place] [address] 09/16/2024 1:15 PM EDT Office Visit Urogynecology [facility] [address] [place] [address] Tiago Fox MD [address] [place] [address] ForresterNurse Arron [facility] [address] [place] [address] Scheduled Procedures Name Priority Associated Diagnoses Date/Ti me COLONOSCOPY FLEXIBLE PROXIMAL DIAGNOSTIC Recall History of colon polyps Health Maintenance Due Date Last Done Comments DISCUSS TOBACCO CESSATION (REFER TO SMARTSET #5839) 1955 Zoster Vaccines (1 of 2) 2007 DTaP,Tdap,and Td Vaccines (2 - Td or Tdap) 09/01/2020 09/01/2010, 10/16/2002, 02/16/1991 COLONOSCOPY-EVERY 5 YRS AGES 18-100 01/07/2023 01/07/2018, 01/07/2018, 10/30/2012, Additional history exists DXA Scan 02/14/2023 02/15/2016, 10/05/2008 COVID-19 Vaccine ( season) 2023 03/02/2021, 2021 Depression Screening 12/04/2023 12/04/2022 Mammogram 07/12/2024 07/12/2023, 06/2021, 09/03/2019, Additional history exists GFR 08/30/2024 08/30/2023, 12/2021, 07/19/2022, Additional history exists Albumin/Creatinine Ratio 04/30/2025 04/30/2022 Diabetes Screening 08/30/2026 08/30/2023, 0 07/20/2022, 07/19/2022, Additional history exists Pap Smear Discontinued 05/01/2016, 04/18, 10/16/2012, Additional history exists LUNG CANCER SCREENING - USE SMARTSET 97831 Completed 07/10/2022 Pneumococcal Vaccine: 65+ Years Completed [...] this encounter Medical Devices Implanted Type Area Health Insurance Agent Device Identifier Shelf Expiration Date Model / Serial / Lot Kit Tined Lead - [id number] - [id number] Implanted:Qty: 1 on 05/11/2022 by Steve Burns MD at OR [facility] [employer] 08/12/2023 1201 / [id number] / Neurostimulator - [id number] - [id number] Implanted:Qty: 1 on 05/18/2022 by Steve Burns MD at OR [facility] Back [employer] 04/07/2024 1101 / [id number] / Patch Xenosure [id number] - [id number] Implanted:Qty: 1 on 07/19/2022 by Avery Betancourt MD [place] [facility] [place] Right: Femoral Artery [employer] [id number] 02/13/2028 E0.8P8 / [id number] / [id number] documented as of this encounter Advance Directives Latest Code Status [...] the patient have Health Care Power of Delivery Recruiter? No Code Status History Code Status Date Activated Date Inactivated Comments Full Code 05/18/2022 2:31 PM 05/18/2022 8:21 PM This or abhishek reflects the patients wishes and were consensually agreed upon. Full Code 05/11/2022 11:28 AM 05/11/2022 5:45 PM This order reflects the patients wishes and were consensually agreed upon. Question Answer Comments Discussion of Advance Directives occurred with: Not Discussed Care Teams Php Programmer Relationship Specialty Start Date End Date Praneeth Hennessy MD [address] [place] [address] PCP - General 02/10/03 documented as of this encounter
--- OUTSIDE RECORDS SUMMARY | 2023-12-13 15:25 | External Medical Summary | Summary of Care ---
Author Name Unknown Organization [facility] Address [address] [place] [address] Phone [phone] Care Team Providers Care Case Management Associate Name Role Phone Praneeth Hennessy MD Primary Care Provider +1- [phone] Reason for Visit * Reason Onset Date Comments Health Maintenance 12/11/2023 Encounter Details Date Type Department Care Team (Late st Contact Info) Description 12/11/[address] [facility] [address] [place] [facility] [place] [address] Praneeth Hennessy MD [address] [place] [address] Health Maintenance Allergies No known active allergiesdocumented as of this encounter (statuses as of 12/11/2023) Medications Medication Sig Dispensed Refills Start Date End Date Status WELLBUTRIN XL 300 MG PO [id number]:Dep ressive disorder, not elsewhere classified One pill [...] Vitamin D3 50 MCG (2000 UT) Oral CapsuleIndications: Vitamin D deficiency Take [...] as of this encounter (statuses as of 12/11/2023) Active Problems Problem Noted Date Diagnosed Date [...] apnea 2014 Overview: Auto CPAP [address] [facility] GERD (gastroesophageal reflux disease) 2 HTN, goal below 140/90 05/26/2012 Benign neoplasm of colon 07/13/2008 Overview: adenomatous and hyperplastic/repeat colonoscopy in 3-5 yrs Herpes zoster 03/31/2003 Major depressive disorder Overview: ICD-10 update of inactive term Tobacco use disorder documented as of this encounter (statuses as of 12/11/2023) Resolved Problems Problem Noted Date Diagnosed Date [...] as of this encounter (statuses as of 12/11/2023) Immunizations Name Administration Dates Next Due COVID-19 mRNA, LNP-s, No Pre serve, 2-Dose Series (Pfizer) 03/02/2021,2021 Pneumococcal Conjugate Vacci ne, 20-valent ([id number]) 12/04/2022 Pneumococcal Polysaccharide PPV23 (Pneumovax) 10/16/2012 Seasonal [...] (15 years old or older) No 07/19/20 22 Cognitive Status Response Date of Assessm ent Because of a physical, menta l, or emotional condition, do you have serious difficulty concentrating, remembering, or making decisions? (5 years old or older) No 07/19/2022 documented as of this encounter Miscellaneous Notes * Telephone Encounter - Hallie Craig LPN - 12/11/2023 10:42 AM EST Care Gaps Comprehensive Care Outreach Last Office/Telemedicine Visit: 06/11/2023 (in office), Visit date not found (telemedicine) Next Office Visit: 12/30/2023 Hemoglobin AIC Results: Lab Results Component Value Date/Time HEMOGLOBIN A1C, DBS - [facility] 5.8 (H) 08/12/2023 06:11 AM Reviewed Health Maintenance below: Health Maintenance Topic Date Due DISCUSS TOBACCO CESSATION (REFER TO SMARTSET #3294) Never done Zoster Vaccines (1 of 2) Never done DTaP,Tdap,and Td Vaccines (2 - Td or Tdap) 09/01/2020 COLONOSCOPY-EVERY 5 YRS AGES 18-100 01/07/2023 DXA Scan 02/14/2023 COVID-19 Vaccine (3 - 2022- season) 2023 Depression Screening 12/04/2023 Colon declined Dexa january Care Gap Outreach Action Taken: Spoke to patient documented in this encounter Plan of Treatment Upcoming Encounters Date Type Department Care Team (Late st Contact Info) Description 12/30/2023 3:00 PM EST Office Visit [facility] [address] [place] [phone] Praneeth Hennessy MD [address] [place] [facility] [address] 02/12/2024 1:00 PM EDT Office Visit Cardiology, [facility] [address] [place] [address] Anne Rios PA-C [address] [place] [address] 03/11/2024 10:00 AM EDT Telemedicine Sleep Disorders Ctr [facility] [address] [place] [phone] Jigna Hay CRNP [address] [place] [address] 09/16/2024 1:15 PM EDT Office Visit Urogynecology [facility] [address] [place] [address] Tiago Fox MD [address] [place] [address] Nurse Arron Forrester Shahbaz [address] [place] [address] Scheduled Procedures Name Priority Associated Diagnoses Date/Ti me COLONOSCOPY FLEXIBLE PROXIMAL DIAGNOSTIC Recall History of colon polyps Health Maintenance Due Date Last Done Comments DISCUSS TOBACCO CESSATION (REFER TO SMARTSET #2244) 1955 Zoster Vaccines (1 of 2) 2007 DTaP,Tdap,and Td Vaccines (2 - Td or Tdap) 09/01/2020 09/01/2010, 10/16/2002, 02/16/1991 COLONOSCOPY-EVERY 5 YRS AGES 18-100 01/07/2023 01/07/2018, 01/07/2018, 10/30/2012, Additional history exists DXA Scan 02/14/2023 02/15/2016, 10/05/2008 COVID-19 Vaccine (2022- season) 2023 03/02/2021, 2021 Depression Screening 12/04/2023 12/04/2022 Mammogram 07/12/2024 07/12/2023, 06/2021, 09/03/2019, Additional history exists GFR 08/30/2024 08/30/2023, 12/2021, 07/19/2022, Additional history exists Albumin/Creatinine Ratio 04/30/2025 04/30/2022 Diabetes Screening 08/30/2026 08/30/2023, 0 07/20/2022, 07/19/2022, Additional history exists Pap Smear Discontinued 05/01/2016, 04/18, 10/16/2012, Additional history exists LUNG CANCER SCREENING - USE SMARTSET 62077 Completed 07/10/2022 Pneumococcal Vaccine: 65+ Years Completed [...] this encounter Medical Devices Implanted Type Area Material Checker Device Identifier Shelf Expiration Date Model / Serial / Lot Kit Tined Lead - [id number] - [id number] Implanted:Qty: 1 on 05/11/2022 by Steve Burns MD at OR [facility] [employer] 08/12/2023 1201 / [id number] / Neurostimulator - [id number] - [id number] Implanted:Qty: 1 on 05/18/2022 by Steve Burns MD at OR [facility] [employer] 04/07/2024 1101 / [id number] / Patch Xenosure [id number] - [id number] Implanted:Qty: 1 on 07/19/2022 by Avery Betancourt MD [place] [facility] [place] Right: Femoral Artery [employer] [id number] 02/13/2028 E0.8P8 / [id number] / [id number] documented as of this encounter Advance Directives [...] the patient have Health Care Power of Cutter Hot Knife? No Code Status History Code Status Date Activated Date Inactivated Comments Full Code 05/18/2022 2:31 PM 05/18/2022 8:21 PM This or abhishek reflects the patients wishes and were consensually agreed upon. Full Code 05/11/2022 11:28 AM 05/11/2022 5:45 PM This order reflects the patients wishes and were consensually agreed upon. Question Answer Comments Discussion of Advance Directives occurred with: Not Discussed Care Teams Case Management Associate Relationship Specialty Start Date End Date Praneeth Hennessy MD [address] [place] [address] PCP - General 02/10/03 documented as of this encounter
--- OUTSIDE RECORDS SUMMARY | 2023-12-13 15:25 | External Medical Summary | Summary of Care ---
Author Name Unknown Organization [facility] Address [address] [place] [address] Phone [phone] Care Team Providers Care Instructor Physical Name Role Phone Praneeth Hennessy MD Primary Care Provider +1- [phone] Reason for Visit * Reason Onset Date Comments Health Maintenance 12/11/2023 Encounter Details Date Type Department Care Team (Late st Contact Info) Description 12/11/2023 Telephone [facility] [address] [place] [address] Praneeth Hennessy MD [address] [place] [address] Health Maintenance Allergies No known active allergiesdocumented as of this encounter (statuses as of 12/12/2023) Medications Medication Sig Dispensed Refills Start Date End Date Status WELLBUTRIN XL 300 MG PO [id number]:Dep ressive disorder, not elsewhere classified One pill [...] apnea 2014 Overview: Auto CPAP 6 cwp [facility] GERD (gastroesophageal reflux disease) 2 HTN, goal [...] (Pfizer) 03/02/2021,2021 Pneumococcal Conjugate Vacci ne, 20-valent ([id number]) 12/04/2022 Pneumococcal Polysaccharide PPV23 (Pneumovax) 10/16/2012 Seasonal [...] Description 12/30/2023 3:00 PM EST Office Visit [facility] [address] [place] [phone] Praneeth Hennessy MD [address] [place] [facility] [place] [address] 02/12/2024 1:00 PM EDT Office Visit Cardiology, [facility] [address] [place] [address] Anne Rios PA-C [address] [place] [address] 03/11/2024 10:00 AM EDT Telemedicine Sleep Disorders Ctr [facility] [address] [place] [phone] Jigna Hay CRNP [address] [place] [address] 09/16/2024 1:15 PM EDT Office Visit Urogynecology [facility] [address] [place] [address] Tiago Fox MD [address] [place] [address] Nurse Arron Forrester Shahbaz [address] [place] [address] Scheduled Procedures Name Priority Associated Diagnoses Date/Ti me COLONOSCOPY FLEXIBLE PROXIMAL DIAGNOSTIC Recall History of colon polyps Health Maintenance Due Date Last Done Comments DISCUSS TOBACCO CESSATION (REFER TO SMARTSET #2974) 1955 Zoster Vaccines (1 of 2) 2007 [...] exists LUNG CANCER SCREENING - USE SMARTSET 46422 Completed 07/10/2022 Pneumococcal Vaccine: 65+ Years Completed [...] this encounter Medical Devices Implanted Type Area Mechanical Assembly Technician Device Identifier Shelf Expiration Date Model / Serial / Lot Kit Tined Lead - [id number] - [id number] Implanted:Qty: 1 on 05/11/2022 by Steve Burns MD at OR [facility] [employer] 08/12/2023 1201 / [id number] / Neurostimulator - [id number] - [id number] Implanted:Qty: 1 on 05/18/2022 by Steve Burns MD at OR [facility] [employer] 04/07/2024 1101 / [id number] / Patch Xenosure [id number] - [id number] Implanted:Qty: 1 on 07/19/2022 by Avery Betancourt MD at OR [facility] [place] Right: Femoral Artery [employer] [id number] 02/13/2028 E0.8P8 / [id number] / [id number] documented as of this encounter Advance Directives [...] the patient have Health Care Power of Track Walker? No Code Status History Code Status Date Activated Date Inactivated Comments Full Code 05/18/2022 2:31 PM 05/18/2022 8:21 PM This or abhishek reflects the patients wishes and were consensually agreed upon. Full Code 05/11/2022 11:28 AM 05/11/2022 5:45 PM This order reflects the patients wishes and were consensually agreed upon. Question Answer Comments Discussion of Advance Directives occurred with: Not Discussed Care Teams Instructor Physical Relationship Specialty Start Date End Date Praneeth Hennessy MD [address] [place] [address] PCP - General 02/10/03 documented as of this encounter
--- OUTSIDE RECORDS SUMMARY | 2023-12-13 15:25 | External Medical Summary | Summary of Care ---
Author Name Unknown Organization [facility] Address [address] [place] [address] Phone [phone] Care Team Providers Care Sales Representative Metals Name Role Phone Miki Sanford MD Primary Care Provider [phone]- [phone] Reason for Visit * Reason Onset Date Comments Medication Refill 12/05/2023 Encounter Details Date Type Department Care Team (Late st Contact Info) Description 12/05/2023 Refill [facility] [address] [place] [address] Miki Sanford MD [address] [place] [address] Primary osteoarthritis of both knees Allergies No known active allergiesdocumented as of this encounter (statuses as of 12/08/2023) Medications Medication Sig Dispensed Refills Start Date End Date Status WELLBUTRIN XL 300 MG PO [id number]:Dep ressive disorder, not elsewhere classified One pill by mouth once a day - from [place] 1 Tab 0 2 Active VENLAFAXINE HCL ER 150 MG PO CP24 TAKE ONE CAPSULE EVERY EVENING 0 4 Active Ferrous Sulfate (IRON) 325 (65 Fe) MG TABS Take 1 Tablet by mouth in the morning. 0 Active temazepam (RESTORIL) 15 MG Capsule Take 1 Capsule by mouth daily as needed. 0 9 Active Multiple Vitamins-Minerals (MULTIVITAMIN ADULT) TABS Take by mouth 1 Tablet daily . 0 Active valACYclovir HCl 1 GM Oral Tablet (Valtrex)Indication s:Cold sore TAKE 2 TABS BY MOUTH EVERY 12 HOURS. FOR COLD SORES 4 Tablet 11 1 Active Additional Information Patient taking differently:2,000 mg OralPRN, for cold sores, Informant: Patient, Reported on 02/20/2023 CPAP every night at bedtime . 0 Active Nicotine 21 MG/24HR Transdermal Patch 24 Hour (Nicoderm CQ) Place topically on the skin 1 Patch in the morning. 28 Patch 1 2 Active Additional Information Patient not taking.Reported on 12/04/2022 Metoprolol Succinate ER 50 MG Oral Tablet Extended Release 24 Hour (toPROL XL)Indications:HTN, goal below 140/90 TAKE 1 TABLET BY MOUTH EVERY DAY 90 Tablet 3 3 Active Pantoprazole Sodium 20 MG Oral Tablet Delayed Release (Protonix)Indicatio ns:Heartburn TAKE 1 TABLET BY MOUTH DAILY 30 MIN BEFORE THE 1ST MEAL OF THE DAY. DO NOT CRUSH, SPLIT, OR CHEW TAB 90 Tablet 3 3 Active Vitamin D3 50 MCG (2000 UT) Oral CapsuleIndications: Vitamin D deficiency Take 1 Capsule by mouth in the morning. 90 Capsule 3 3 Active oxyBUTYnin Chloride ER 15 MG Oral Tablet Extended Release 24 Hour (Ditropan XL) Take 1 Tablet by mouth in the morning. 90 Tablet 3 3 Active Rosuvastatin Calcium 20 MG Oral Tablet (Crestor) TAKE 1 TABLET BY MOUTH EVERYDAY AT BEDTIME 90 Tablet 2 3 Active Eliquis 5 MG Oral Tablet (Apixaban) TAKE 1 TABLET BY MOUTH TWICE A DAY 180 Tablet 3 3 Active HYDROcodone-Acetami nophen 5-325 MG Oral TabletIndications:P rimary osteoarthritis of both knees Take 1-2 Tablets by mouth every 8 hours as needed for Pain, Mild, Pain, Moderate or Pain, Severe. 45 Tablet 0 4 Active Zepbound 2.5 MG/0.5ML Subcutaneous Solution Auto-injector (Tirzepatide-Weight Management)Indicati ons:Class 2 severe obesity with serious comorbidity and body mass index (BMI) of 38.0 to 38.9 in adult, unspecified obesity type (HCC),Prediabetes Inject 2.5 mg subcutaneously once per week 2 mL 5 4 Active HYDROcodone-Acetami nophen 5-325 MG Oral TabletIndications:P rimary osteoarthritis of both knees Take 1-2 Tablets by mouth every 8 hours as needed for Pain, Mild, Pain, Moderate or Pain, Severe. 45 Tablet 0 3 12/05/19 24 Discontinu ed(Refill) documented as of this encounter (statuses as of 12/08/2023) Active Problems Problem Noted Date Diagnosed Date [...] apnea 2014 Overview: Auto CPAP 6 cwp [facility] GERD (gastroesophageal reflux disease) 2 HTN, goal below 140/90 05/26/2012 Benign neoplasm of colon 07/13/2008 Overview: adenomatous and hyperplastic/repeat colonoscopy in 3-5 yrs Herpes zoster 03/31/2003 Major depressive disorder Overview: ICD-10 update of inactive term Tobacco use disorder documented as of this encounter (statuses as of 12/08/2023) Resolved Problems Problem Noted Date Diagnosed Date [...] as of this encounter (statuses as of 12/08/2023) Immunizations Name Administration Dates Next Due COVID-19 mRNA, LNP-s, No Pre serve, 2-Dose Series (Pfizer) 03/02/2021,2021 Pneumococcal Conjugate Vacci ne, 20-valent (Adapsaf31) 12/04/2022 Pneumococcal Polysaccharide PPV23 (Pneumovax) 10/16/2012 Seasonal [...] encounter Miscellaneous Notes * Telephone Encounter - Miki Sanford MD - 12/08/2023 6:07 PM ESTSigned Prescriptions: Disp Refills HYDROcodone-Acetaminophen 5-325 MG Oral Ta*45 Tab*0 Sig: Take 1-2 Tablets by mouth every 8 hours as needed for Pain, Mild, Pain, Moderate or Pain, Severe.Authorizing Provider: MIKI SANFORD * Telephone Encounter - Vera Jett RPh - 12/06/2023 5:28 PM ESTPending Prescriptions: Disp Refills HYDROcodone-Acetaminophen 5-325 MG Oral Ta*45 Tab*0 Sig: Take 1-2 Tablets by mouth every 8 hours as needed for Pain, Mild, Pain, Moderate or Pain, Severe. * Telephone Encounter - Vera Jett RPh - 12/06/2023 5:26 PM EST I have reviewed the patients controlled substance dispensing history in the Prescription Drug Monitoring Program in compliance with the [facility] regulations before prescribing a controlled substance. PDMP checked on 12/06/2023. Pending Prescriptions: Disp Refills HYDROcodone-Acetaminophen 5-325 MG Oral T*45 Tab*0 Sig: Take 1-2 Tablets by mouth every 8 hours as needed for Pain, Mild, Pain, Moderate or Pain, Severe. Last Visit: 06/11/2023 (in office), Visit date not found (telemedicine) Next Visit: 12/30/2023 Date medication was last filled: 11/13 Date medication is due for refill: 11/20 [id number] [address] [facility] Is this request for a controlled substance? Yes and Urine Drug Screen Not completed Toxicology results: No results found. However, due to the size of the patient record, not all encounters were searched.Please check Results Review for a complete set of results. Please approve if appropriate. Thank you, Vera Jett, PharmD Clinical Pharmacist [facility] Pharm[facility] Services (CCPS) [facility] [phone] 12/06/2023, 5:26 PM documented in this encounter Plan of Treatment Upcoming Encounters Date Type Department Care Team (Late st Contact Info) Description 12/30/2023 3:00 PM EST Office Visit [facility] [address] [place] [facility] [place] [phone] Miki Sanford MD [address] [place] [facility] [place] [address] 02/12/2024 1:00 PM EDT Office Visit [facility]iology, [facility] [place] [address] Anne Rios PA-C [address] [place] [address] 03/11/2024 10:00 AM EDT Telemedicine [facility] [address] [facility] [place] [phone] Jigna Hay CRNP [address] [place] [address] 09/16/2024 1:15 PM EDT Office Visit Urogynecology [facility] [address] [place] [address] Tiago Fox MD [address] [place] [address] Nurse Arron Forrester Shahbaz [address] [place] [address] Scheduled Procedures Name Priority Associated Diagnoses Date/Ti me COLONOSCOPY FLEXIBLE PROXIMAL DIAGNOSTIC Recall History of colon polyps Health Maintenance Due Date Last Done Comments DISCUSS TOBACCO CESSATION (REFER TO SMARTSET #6483) 1955 Zoster Vaccines (1 of 2) 2007 DTaP,Tdap,and Td Vaccines (2 - Td or Tdap) 09/01/2020 09/01/2010, 10/16/2002, 02/16/1991 COLONOSCOPY-EVERY 5 YRS AGES 18-100 01/07/2023 01/07/2018, 01/07/2018, 10/30/2012, Additional history exists DXA Scan 02/14/2023 02/15/2016, 10/05/2008 COVID-19 Vaccine ( season) 2023 03/02/2021, 2021 Depression Screening 12/04/2023 12/04/2022 Mammogram 07/12/2024 07/12/2023, 100 06/2021, 09/03/2019, Additional history exists GFR 08/30/2024 08/30/2023, 12/2021, 07/19/2022, Additional history exists Albumin/Creatinine Ratio 04/30/2025 04/30/2022 Diabetes Screening 08/30/2026 08/30/2023, 0 07/20/2022, 07/19/2022, Additional history exists Pap Smear Discontinued 05/01/2016, 04/18, 10/16/2012, Additional history exists LUNG CANCER SCREENING - USE SMARTSET 99507 Completed 07/10/2022 Pneumococcal Vaccine: 65+ Years Completed [...] this encounter Medical Devices Implanted Type Area Construction Materials Tester Device Identifier Shelf Expiration Date Model / Serial / Lot Kit Tined Lead - [id number] - [id number] Implanted:Qty: 1 on 05/11/2022 by Steve Burns MD at OR [facility] [employer] 08/12/2023 1201 / [id number] / Neurostimulator - [id number] - [id number] Implanted:Qty: 1 on 05/18/2022 by Steve Burns MD at OR [facility] [employer] 04/07/2024 1101 / [id number] / Patch Xenosure [id number] - [id number] Implanted:Qty: 1 on 07/19/2022 by Avery Betancourt MD at OR [facility] Right: Femoral Artery [facility] [employer] [id number] 02/13/2028 E0.8P8 / [id number] / [id number] documented as of this encounter Visit Diagnoses Diagnosis Primary osteoarthritis of both knees Primary localized osteoarthrosis, lower leg documented in this encounter Advance Directives Latest [...] the patient have Health Care Power of Diesel Maintenance Technician? No Code Status History Code Status Date Activated Date Inactivated Comments Full Code 05/18/2022 2:31 PM 05/18/2022 8:21 PM This or abhishek reflects the patients wishes and were consensually agreed upon. Full Code 05/11/2022 11:28 AM 05/11/2022 5:45 PM This order reflects the patients wishes and were consensually agreed upon. Question Answer Comments Discussion of Advance Directives occurred with: Not Discussed Care Teams Sales Representative Metals Relationship Specialty Start Date End Date Miki Sanford MD [address] [place] [address] PCP - General 02/10/03 documented as of this encounter
--- OUTSIDE RECORDS SUMMARY | 2023-12-13 15:25 | External Medical Summary | Summary of Care ---
Author Name Unknown Organization [facility] Address [address] [place] [address] Phone [phone] Care Team Providers Care Loan Clerk Name Role Phone Praneeth Hennessy MD Primary Care Provider +1- [phone] Reason for Visit * Reason Onset Date Comments Med Request 11/21/2023 Encounter Details Date Type Department Care Team (Late st Contact Info) Description 11/21/2023 Telephone [facility] [address] [place] [facility] [place] [address] Praneeth Hennessy MD [address] [place] [address] Med Request Allergies No known active allergiesdocumented as of this encounter (statuses as of 11/21/2023) Medications Medication Sig Dispensed Refills Start Date End Date Status WELLBUTRIN XL 300 MG PO [id number]:Depr essive disorder, not elsewhere classified One pill [...] Pain, Severe. 45 Tablet 0 11/13/2023 Active documented as of this encounter (statuses as of 11/21/2023) Active Problems Problem Noted Date Diagnosed Date [...] apnea 2014 Overview: Auto CPAP 6 cwp [facility] GERD (gastroesophageal reflux disease) 2 HTN, goal below 140/90 05/26/2012 Benign neoplasm of colon 07/13/2008 Overview: adenomatous and hyperplastic/repeat colonoscopy in 3-5 yrs Herpes zoster 03/31/2003 Major depressive disorder Overview: ICD-10 update of inactive term Tobacco use disorder documented as of this encounter (statuses as of 11/21/2023) Resolved Problems Problem Noted Date Diagnosed Date [...] as of this encounter (statuses as of 11/21/2023) Immunizations Name Administration Dates Next Due COVID-19 mRNA, LNP-s, No Pre serve, 2-Dose Series (Pfizer) 03/02/2021,2021 Pneumococcal Conjugate Vacci ne, 20-valent ([id number]) 12/04/2022 Pneumococcal Polysaccharide PPV23 (Pneumovax) 10/16/2012 Seasonal [...] Telephone Encounter - Citlaly Yu LPN - 11/21/2023 6:33 PM EST Spoke with pt and made aware. * Telephone Encounter - Praneeth Hennessy MD - 11/21/2023 6:25 PM EST Agree. Need a positive test to send paxlovid. Please send back if she can confirm a positive home test. * Telephone Encounter - Edel Jose LPN - 11/21/2023 1:51 PM EST Call placed to patient to clarify if she has completed a COVID test or not and what the results are. Left message for return call * Telephone Encounter - Maria Guadalupe Powers OSA - 11/21/2023 8:35 AM EST Reason for patient call/what is patient requesting? Something for covid Have you had symptoms of COVID-19 such as fever, sore throat, shortness of breath? COVID19 Symptoms:yes Date of first symptoms: 11/20/2023 Date of last fever: not yet Date of last symptoms: 11/21/2023 Have you had close exposure to someone who tested positive for COVID-19? COVID19 Exposure: yes Date of first exposure: 11/18/2023 Date of last exposure: 11/20/2023 Testing location requested: Positive COVID 19 test in the past 90 days? Clinic Test no Home testdid not do test yet Did you have 2 vaccines yes Boosters had 1 booster Call Details are Required documented in this encounter Plan of Treatment Upcoming Encounters Date Type Department Care Team (Late st Contact Info) Description 12/17/2023 3:00 PM EST Office Visit Cardiology, [facility] [address] [place] [address] Anne Rios PA-C [address] [place] [address] 12/19/2023 2:20 PM EST Office Visit [facility] [address] [place] [address] Praneeth Hennessy MD [address] [place] [address] 02/12/2024 1:00 PM EDT Office Visit Cardiology, [facility] [address] [place] [address] Anne Rios PA-C [address] [place] [address] 03/11/2024 10:00 AM EDT Telemedicine Sleep Disorders Ctr [facility] [address] [place] [phone] Jigna Hay CRNP [address] [place] [address] 09/16/2024 1:15 PM EDT Office Visit Urogynecology [facility] [address] [place] [address] Tiago Fox MD [address] [place] [address] Nurse Arron Forrester [address] [place] [address] Scheduled Procedures Name Priority Associated Diagnoses Date/Ti me COLONOSCOPY FLEXIBLE PROXIMAL DIAGNOSTIC Recall History of colon polyps Health Maintenance Due Date Last Done Comments DISCUSS TOBACCO CESSATION (REFER TO SMARTSET #3262) 1955 Zoster Vaccines (1 of 2) 2007 DTaP,Tdap,and Td Vaccines (2 - Td or Tdap) 09/01/2020 09/01/2010, 10/16/2002, 02/16/1991 COLONOSCOPY-EVERY 5 YRS AGES 18-100 01/07/2023 01/07/2018, 01/07/2018, 10/30/2012, Additional history exists DXA Scan 02/14/2023 02/15/2016, 10/05/2008 COVID-19 Vaccine ( season) 2023 03/02/2021, 2021 Depression Screening 12/04/2023 12/04/2022 Mammogram 07/12/2024 07/12/2023, 100 06/2021, 09/03/2019, Additional history exists GFR 08/30/2024 08/30/2023, 0 12/2021, 07/19/2022, Additional history exists Albumin/Creatinine Ratio 04/30/2025 04/30/2022 Diabetes Screening 08/30/2026 08/30/2023, 0 07/20/2022, 07/19/2022, Additional history exists Pap Smear Discontinued 05/01/2016, 04/18, 10/16/2012, Additional history exists LUNG CANCER SCREENING - USE SMARTSET 84474 Completed 07/10/2022 Pneumococcal Vaccine: 65+ Years Completed [...] this encounter Medical Devices Implanted Type Area Data Recovery Planner Device Identifier Shelf Expiration Date Model / Serial / Lot Kit Tined Lead - [id number] - [id number] Implanted:Qty: 1 on 05/11/2022 by Steve Burns MD at OR [facility] [employer] 08/12/2023 1201 / [id number] / Neurostimulator - [id number] - [id number] Implanted:Qty: 1 on 05/18/2022 by Steve Burns MD at OR [facility] Back [employer] 04/07/2024 1101 / [id number] / Patch Xenosure [id number] - [id number] Implanted:Qty: 1 on 07/19/2022 by Avery Betancourt MD at [place] [facility] Right: Femoral Artery [employer] [id number] 02/13/2028 E0.8P8 / [id number] / [id number] documented as of this encounter Advance Directives [...] the patient have Health Care Power of Biomass Boiler Operator? No Code Status History Code Status Date Activated Date Inactivated Comments Full Code 05/18/2022 2:31 PM 05/18/2022 8:21 PM This or abhishek reflects the patients wishes and were consensually agreed upon. Full Code 05/11/2022 11:28 AM 05/11/2022 5:45 PM This order reflects the patients wishes and were consensually agreed upon. Question Answer Comments Discussion of Advance Directives occurred with: Not Discussed Care Teams Loan Clerk Relationship Specialty Start Date End Date Praneeth Hennessy MD [address] [place] [address] PCP - General 02/10/03 documented as of this encounter
--- OUTSIDE RECORDS SUMMARY | 2023-12-13 15:25 | External Medical Summary | Summary of Care ---
Author Name Unknown Organization [facility] Address [address] [place] [address] Phone [phone] Care Team Providers Care Behavioral Assistant Name Role Phone Miki Sanford MD Primary Care Provider +1- [phone] Reason for Visit * Reason Onset Date Comments Medication Refill 11/13/2023 Encounter Details Date Type Department Care Team (Late st Contact Info) Description 11/13/2023 Refill [facility] [address] [place] [address] Miki Sanford MD [address] [place] [address] Primary osteoarthritis of both knees Allergies No known active allergiesdocumented as of this encounter (statuses as of 11/13/2023) Medications Medication Sig Dispensed Refills Start Date End Date Status WELLBUTRIN XL 300 MG PO [id number]:Dep ressive disorder, not elsewhere classified One pill [...] Pain, Severe. 45 Tablet 0 11/13/2023 Active HYDROcodone-Acetami nophen 5-325 MG Oral TabletIndications:P rimary osteoarthritis of both knees Take 1-2 Tablets by mouth every 8 hours as needed for Pain, Mild, Pain, Moderate or Pain, Severe. 45 Tablet 0 09/30/2023 3 Discontinu ed(Refill) documented as of this encounter (statuses as of 11/13/2023) Active Problems Problem Noted Date Diagnosed Date [...] apnea 2014 Overview: Auto CPAP 6 cwp [facility] GERD (gastroesophageal reflux disease) 2 HTN, goal below 140/90 05/26/2012 Benign neoplasm of colon 07/13/2008 Overview: adenomatous and hyperplastic/repeat colonoscopy in 3-5 yrs Herpes zoster 03/31/2003 Major depressive disorder Overview: ICD-10 update of inactive term Tobacco use disorder documented as of this encounter (statuses as of 11/13/2023) Resolved Problems Problem Noted Date Diagnosed Date [...] as of this encounter (statuses as of 11/13/2023) Immunizations Name Administration Dates Next Due COVID-19 mRNA, LNP-s, No Pre serve, 2-Dose Series (Pfizer) 03/02/2021,2021 Pneumococcal Conjugate Vacci ne, 20-valent ([id number]) 12/04/2022 Pneumococcal Polysaccharide PPV23 (Pneumovax) 10/16/2012 Seasonal [...] Telephone Encounter - Miki Sanford MD - 11/13/2023 6:16 PM ESTSigned Prescriptions: Disp Refills HYDROcodone-Acetaminophen 5-325 MG Oral Ta*45 Tab*0 Sig: Take 1-2 Tablets by mouth every 8 hours as needed for Pain, Mild, Pain, Moderate or Pain, Severe.Authorizing Provider: MIKI SANFORD * Telephone Encounter - Rufino Ford, [facility] - 11/13/2023 3:54 PM ESTPending Prescriptions: Disp Refills HYDROcodone-Acetaminophen 5-325 MG Oral Ta*45 Tab*0 Sig: Take 1-2 Tablets by mouth every 8 hours as needed for Pain, Mild, Pain, Moderate or Pain, Severe. * Telephone Encounter - Rufino Ford [facility] - 11/13/2023 3:53 PM EST I have reviewed the patients controlled substance dispensing history in the Prescription Drug Monitoring Program in compliance with the [facility] regulations before prescribing a controlled substance. PDMP checked on 11/13/2023. Pending Prescriptions: Disp Refills HYDROcodone-Acetaminophen 5-325 MG Oral T*45 Tab*0 Sig: Take 1-2 Tablets by mouth every 8 hours as needed for Pain, Mild, Pain, Moderate or Pain, Severe. Last Visit: 06/11/2023 (in office), Visit date not found (telemedicine) Next Visit: 12/19/2023 Date medication was last filled: 09/30/23 Date medication is due for refill: 10/07/23 Pharmacy: [id number] [address] [facility] Is this request for a controlled substance? Yes and Urine Drug Screen Not completed Toxicology results: No results found. However, due to the size of the patient record, not all encounters were searched.Please check Results Review for a complete set of results. Please approve if appropriate. Thank You, Rufino Delgado [facility] Clinical Pharmacist Centralized Clinical Pharmacy Services (CCPS) (formerly Telepharmacy) 11/13/2023, 3:53 PM documented in this encounter Plan of Treatment Upcoming Encounters Date Type Department Care Team (Late st Contact Info) Description 11/22/2023 3:00 PM EST Office Visit Cardiology, [facility] [address] [place] [address] Anne Rios PA-C [address] [place] [address] 12/19/2023 2:20 PM EST Office Visit [facility] [address] [place] [phone] Miki Sanford MD [address] [place] [facility] [place] [facility] [address] 02/12/2024 1:00 PM EDT Office Visit Cardiology, [facility] [address] [place] [address] Anne Rios PA-C [address] [place] [address] 03/11/2024 10:00 AM EDT Telemedicine Sleep Disorders Ctr [facility] [address] [place] [phone] Jigna Hay CRNP [address] [place] [address] 09/16/2024 1:15 PM EDT Office Visit Urogynecology [facility] [address] [place] [address] Tiago Fox MD [address] [place] [address] Nurse Arron Forrester [facility] [address] [place] [address] Scheduled Procedures Name Priority Associated Diagnoses Date/Ti me COLONOSCOPY FLEXIBLE PROXIMAL DIAGNOSTIC Recall History of colon polyps Health Maintenance Due Date Last Done Comments DISCUSS TOBACCO CESSATION (REFER TO SMARTSET #2881) 1955 Zoster Vaccines (1 of 2) 2007 DTaP,Tdap,and Td Vaccines (2 - Td or Tdap) 09/01/2020 09/01/2010, 10/16/2002, 02/16/1991 COLONOSCOPY-EVERY 5 YRS AGES 18-100 01/07/2023 01/07/2018, 01/07/2018, 10/30/2012, Additional history exists DXA Scan 02/14/2023 02/15/2016, 10/05/2008 COVID-19 Vaccine ( season) 2023 03/02/2021, 2021 Depression Screening 12/04/2023 12/04/2022 Mammogram 07/12/2024 07/12/2023, 0 06/2021, 09/03/2019, Additional history exists GFR 08/30/2024 08/30/2023, 12/2021, 07/19/2022, Additional history exists Albumin/Creatinine Ratio 04/30/2025 04/30/2022 Diabetes Screening 08/30/2026 08/30/2023, 0 07/20/2022, 07/19/2022, Additional history exists Pap Smear Discontinued 05/01/2016, 04/18, 10/16/2012, Additional history exists LUNG CANCER SCREENING - USE SMARTSET 39028 Completed 07/10/2022 Pneumococcal Vaccine: 65+ Years Completed [...] this encounter Medical Devices Implanted Type Area Machine Maintenance Technician Device Identifier Shelf Expiration Date Model / Serial / Lot Kit Tined Lead - [id number] - [id number] Implanted:Qty: 1 on 05/11/2022 by Steve Burns MD at OR [facility] [employer] 08/12/2023 1201 / [id number] / Neurostimulator - [id number] - [id number] Implanted:Qty: 1 on 05/18/2022 by Steve Burns MD at OR [facility] Back [employer] 04/07/2024 1101 / [id number] / Patch Xenosure [id number] - [id number] Implanted:Qty: 1 on 07/19/2022 by Avery Betancourt MD [facility] [place] [facility] Right: Femoral Artery [facility] [employer] [id number] 02/13/2028 E0.8P8 / [id number] / [id number] documented as of this encounter Visit Diagnoses [...] the patient have Health Care Power of Lei Seller? No Code Status History Code Status Date Activated Date Inactivated Comments Full Code 05/18/2022 2:31 PM 05/18/2022 8:21 PM This or abhishek reflects the patients wishes and were consensually agreed upon. Full Code 05/11/2022 11:28 AM 05/11/2022 5:45 PM This order reflects the patients wishes and were consensually agreed upon. Question Answer Comments Discussion of Advance Directives occurred with: Not Discussed Care Teams Behavioral Assistant Relationship Specialty Start Date End Date Miki Sanford MD [address] [place] [address] PCP - General 02/10/03 documented as of this encounter
--- OUTSIDE RECORDS SUMMARY | 2023-12-13 15:26 | External Medical Summary | Summary of Care ---
Author Name Unknown Organization [facility] Address [address] [place] [address] Phone [phone] Care Team Providers Care Ux Design Manager Name Role Phone Miki Sanford MD Primary Care Provider +1- [phone] Reason for Visit * Reason Comments eRx-Medication Refill Encounter Details Date Type Department Care Team (Late st Contact Info) Description 11/10/2023 Refill [facility] [address] [place] [address] Miki Sanford MD [address] [place] [address] Allergies No known active allergiesdocumented as of this encounter (statuses as of 11/12/2023) Medications Medication Sig Dispensed Refills Start Date End Date Status WELLBUTRIN XL 300 MG PO [id number]:Dep ressive disorder, not elsewhere classified One pill by mouth once a day - from Octarle 1 Tab 0 2 Active VENLAFAXINE HCL [...] 3 3 Active Vitamin D3 50 MCG (1999 UT) Oral CapsuleIndications: Vitamin D deficiency Take 1 Capsule by mouth in the morning. 90 Capsule 3 3 Active oxyBUTYnin Chloride ER 15 MG Oral Tablet Extended Release 24 Hour (Ditropan XL) Take 1 Tablet by mouth in the morning. 90 Tablet 3 3 Active HYDROcodone-Acetami nophen 5-325 MG Oral TabletIndications:P rimary osteoarthritis of both knees Take 1-2 Tablets by mouth every 8 hours as needed for Pain, Mild, Pain, Moderate or Pain, Severe. 45 Tablet 0 3 Active Rosuvastatin Calcium 20 MG Oral Tablet (Crestor) TAKE 1 TABLET BY MOUTH EVERYDAY AT BEDTIME 90 Tablet 2 3 Active Eliquis 5 MG Oral Tablet (Apixaban) TAKE 1 TABLET BY MOUTH TWICE A DAY 180 Tablet 3 3 Active Eliquis 5 MG Oral Tablet (Apixaban) TAKE 1 TABLET BY MOUTH TWICE A DAY 180 Tablet 0 3 11/12/20 23 Discontinued documented as of this encounter (statuses as of 11/12/2023) Active Problems Problem Noted Date Diagnosed Date [...] apnea 2014 Overview: Auto CPAP 6 cwp [facility] GERD (gastroesophageal reflux disease) 2 HTN, goal below 140/90 05/26/2012 Benign neoplasm of colon 07/13/2008 Overview: adenomatous and hyperplastic/repeat colonoscopy in 3-5 yrs Herpes zoster 03/31/2003 Major depressive disorder Overview: ICD-10 update of inactive term Tobacco use disorder documented as of this encounter (statuses as of 11/12/2023) Resolved Problems Problem Noted Date Diagnosed Date [...] Overview: Per Lipid Taxonomy. Mixed dyslipidemia 09/09/2008 12/10/200 9 Overview: Per Lipid Taxonomy. Palpitations 01/24/2001 05/26/2012 Heartburn 05/26/2012 OBESITY, UNSPECIFIED 010 Overview: Per Obesity Taxonomy documented as of this encounter (statuses as of 11/12/2023) Immunizations Name Administration Dates Next Due COVID-19 mRNA, LNP-s, No Pre serve, 2-Dose Series (Pfizer) 03/02/2021,2021 Pneumococcal Conjugate Vacci ne, 20-valent ([id number]) 12/04/2022 Pneumococcal Polysaccharide PPV23 (Pneumovax) 10/16/2012 Seasonal [...] encounter Miscellaneous Notes * Telephone Encounter - Celia Ramesh [facility] - 11/12/2023 11:58 AM ESTSigned Prescriptions: Disp Refills Eliquis 5 MG Oral Tablet (Apixaban) 180 Ta*3 Sig: TAKE 1 TABLET BY MOUTH TWICE A DAYAuthorizing Provider: MIKI SANFORD User: CELIA RAMESH-------- documented in this encounter Plan of Treatment Upcoming Encounters Date Type Department Care Team (Late st Contact Info) Description 11/22/2023 3:00 PM EST Office Visit Cardiology, [facility] [address] [place] [address] Anne Rios PA-C [address] [place] [address] 12/19/2023 2:20 PM EST Office Visit [address] [place] [address] Miki Sanford MD [address] [facility] [place] [address] 02/12/2024 1:00 PM EDT Office Visit Cardiology, [facility] [address] [facility] [place] [address] Anne Rios PA-C [address] [place] [address] 03/11/2024 10:00 AM EDT Telemedicine Sleep Disorders Ctr [facility] [address] [place] [address] Jigna Hay CRNP [address] [place] [address] 09/16/2024 1:15 PM EDT Office Visit Urogynecology [facility] [address] [place] [address] Tiago Fox MD [address] [place] [address] ForresterNurse Arron [place] [facility] [address] [place] [address] Scheduled Procedures Name Priority Associated Diagnoses Date/Ti me COLONOSCOPY FLEXIBLE PROXIMAL DIAGNOSTIC Recall History of colon polyps Health Maintenance Due Date Last Done Comments DISCUSS TOBACCO CESSATION (REFER TO SMARTSET #3291) 1957 Zoster Vaccines (1 of 2) 2007 [...] exists LUNG CANCER SCREENING - USE SMARTSET 64080 Completed 07/10/2022 Pneumococcal Vaccine: 65+ Years Completed [...] this encounter Medical Devices Implanted Type Area Finance Mgr Device Identifier Shelf Expiration Date Model / Serial / Lot Kit Tined Lead - [id number] - [id number] Implanted:Qty: 1 on 05/11/2022 by Steve Burns MD at OR [facility] [employer] 08/12/2023 1201 / [id number] / Neurostimulator - [id number] - [id number] Implanted:Qty: 1 on 05/18/2022 by Steve Burns MD at OR [facility] Back [employer] 04/07/2024 1101 / [id number] / Patch Xenosure [id number] - [id number] Implanted:Qty: 1 on 07/19/2022 by Avery Betancourt MD [place] [facility] [place]: Femoral Artery [facility] [employer] [facility] [id number] 02/13/2028 E0.8P8 / [id number] / [id number] documented as of this encounter Advance Directives [...] the patient have Health Care Power of Pulmonary Nurse Practitioner? No Code Status History Code Status Date Activated Date Inactivated Comments Full Code 05/18/2022 2:31 PM 05/18/2022 8:21 PM This o rder reflects the patients wishes and were consensually agreed upon. Full Code 05/11/2022 11:28 AM 05/11/2022 5:45 PM This order reflects the patients wishes and were consensually agreed upon. Question Answer Comments Discussion of Advance Directives occurred with: Not Discussed Care Teams Ux Design Manager Relationship Specialty Start Date End Date Miki Sanford MD [address] [place] [facility] [place] [address] PCP - General 02/10/03 documented as of this encounter
--- OUTSIDE RECORDS SUMMARY | 2023-12-13 15:26 | External Medical Summary | Summary of Care ---
Author Name Unknown Organization [facility] Address [address] [place] [address] Phone [phone] Care Team Providers Care Taker Off Drying Kiln Name Role Phone Miki Sanford MD Primary Care Provider +1- [phone] Reason for Visit * Reason Comments eRx-Medication Refill Encounter Details Date Type Department Care Team (Late st Contact Info) Description 08/13/2023 Refill [facility] [address] [place] [address] Miki Sanford MD [address] [place] [address] Allergies No known active allergiesdocumented as of this encounter (statuses as of 11/07/2023) Medications Medication Sig Dispensed Refills Start Date End Date Status WELLBUTRIN XL 300 MG PO [id number]:De pressive disorder, not elsewhere classified One pill by mouth once a day - from 1 Tab 0 2 Active VENLAFAXINE HCL [...] Active valACYclovir HCl 1 GM Oral Tablet (Valtrex)Indicatio ns:Cold sore TAKE 2 TABS BY MOUTH EVERY [...] Oral Tablet Extended Release 24 Hour (toPROL XL)Indications:HTN , goal below 140/90 TAKE 1 TABLET BY MOUTH EVERY DAY 90 Tablet 3 3 Active Pantoprazole Sodium 20 MG Oral Tablet Delayed Release (Protonix)Indicati ons:Heartburn TAKE 1 TABLET BY MOUTH DAILY 30 MIN BEFORE THE 1ST MEAL OF THE DAY. DO NOT CRUSH, SPLIT, OR CHEW TAB 90 Tablet 3 3 Active Vitamin D3 50 MCG (1999 UT) Oral CapsuleIndications :Vitamin D deficiency Take 1 Capsule by mouth in the morning. 90 Capsule 3 3 Active Eliquis 5 MG Oral Tablet (Apixaban) TAKE 1 TABLET BY MOUTH TWICE A DAY 180 Tablet 0 3 Active Ozempic (0.25 or 0.5 MG/DOSE) 2 MG/1.5ML Solution Pen-injector (Semaglutide(0.25 or 0.5MG/DOS))Indicat ions:Class 2 severe obesity with serious comorbidity and body mass index (BMI) of 38.0 to 38.9 in adult, unspecified obesity type Inject 0.5 mg under the skin once a week. 3 mL 3 023 Discontinued(Fo rmulary/Cost) Oxybutynin Chloride ER 10 MG Oral Tablet Extended Release 24 Hour (Ditropan XL) Take 1 Tablet by mouth in the morning. 90 Tablet 3 3 023 Discontinued(Me dication/Dose Changed) Apixaban 5 MG Oral Tablet (Eliquis) TAKE ONE TABLET BY MOUTH TWICE A DAY (IN THE MORNING AND BEFORE BEDTIME) 180 Tablet 3 3 023 Discontinued Rosuvastatin Calcium 20 MG Oral Tablet (Crestor) TAKE 1 TABLET BY MOUTH EVERYDAY AT BEDTIME 90 Tablet 0 3 023 Discontinued HYDROcodone-Acetam inophen 5-325 MG Oral TabletIndications: Primary osteoarthritis of both knees Take 1-2 Tablets by mouth every 8 hours as needed for Pain, Mild, Pain, Moderate or Pain, Severe. 45 Tablet 0 3 023 Discontinued(Re fill) documented as of this encounter (statuses as of 11/07/2023) Active Problems Problem Noted Date Diagnosed Date [...] as of this encounter (statuses as of 11/07/2023) Resolved Problems Problem Noted Date Diagnosed Date [...] Overview: Per Lipid Taxonomy. Mixed dyslipidemia 09/09/2008 Overview: Per Lipid Taxonomy. Palpitations 01/24/2001 05/26/2012 Heartburn 05/26/2012 OBESITY, UNSPECIFIED 010 Overview: Per Obesity Taxonomy documented as of this encounter (statuses as of 11/07/2023) Immunizations Name Administration Dates Next Due COVID-19 mRNA, LNP-s, No Pre serve, 2-Dose Series (Pfizer) 03/02/2021,2021 Pneumococcal Conjugate Vacci ne, 20-valent ([id number]) 12/04/2022 Pneumococcal Polysaccharide PPV23 (Pneumovax) 10/16/2012 Seasonal Influenza Virus Vac cine, Unspecified Formulation 09/19/2022,09/12/2021,08/11/2020 Seasonal Influenza, PF, 6 M & above, IM , (FluLaval or Fluzone) 09/12/2021,08/11/2020 Seasonal Influenza, Quadriva lent Hd (Fluzone Hd) 09/19/2022 TDAP (age 11 and older)(Adacel) 09/01/2010 09/01/2020 [...] Miscellaneous Notes * Telephone Encounter - Hallie Earl CPhT - 11/07/2023 1:57 PM EST Received message from [facility] regarding patient needing labs. Placed call to patient to advise. Pt had ordered labs completed on 08/30/23; no follow-up is needed. Thank you, Hallie Earl CphT Old Testament Professor III [facility]) (formerly Telepharmacy) 11/07/2023,1:57 PM * Telephone Encounter - [place] [facility] - 08/14/2023 9:32 AM EDTSigned Prescriptions: Disp Refills Eliquis 5 MG Oral Tablet (Apixaban) 180 Ta*0 Sig: TAKE 1 TABLET BY MOUTH TWICE A DAY Authorizing Provider: MIKI SANFORD Ordering User: [place] * Telephone Encounter - [place] RPh - 08/14/2023 9:30 AM EDT Provided 90 days supply with 0 refill(s). Per refill protocol patient should have CBC, CMP and other labs on file within past year. Reviewed AMP report, Care Gaps/Health Maintenance, medications list, and for any routine labs typically ordered for this patient. Lab orders placed. Please contact patient to advise of labs ordered for blood draw. Recommend patient to fast if able for labs. Patient may still have water and regular medications. Advise to obtain labs before requesting the next refill. Thanks, [place], PharmD Clinical Pharmacist [facility] ([facility]) (formerly Telepharmacy) [phone] 08/14/2023 9:31 AM documented in this encounter Plan of Treatment Upcoming Encounters Date Type Department Care Team (Late st Contact Info) Description 11/22/2023 3:00 PM EST Office Visit Cardiology, [facility] [address] [place] [address] Anne Rios, DAVID [address] [place] [address] 12/19/2023 2:20 PM EST [address] [address] Miki Sanford MD [address] [place] [address] 02/12/2024 1:00 PM EDT Office Visit Cardiology, [facility] [address] [place] [address] Anne Rios PA-C [address] [place] [address] 03/11/2024 10:00 AM EDT [facility]medicine [facility] [place] [place] [phone] Jigna Hay CRNP [address] [place] [address] 09/16/2024 1:15 PM EDT Office Visit Urogynecology [facility] [address] [facility] [place] [address] Tiago Fox MD [address] [place] [address] ForresterNurse Arron [place] [facility] [address] [place] [address] Scheduled Procedures Name Priority Associated Diagnoses Date/Ti [...] exists LUNG CANCER SCREENING - USE SMARTSET 71774 Completed 07/10/2022 Pneumococcal Vaccine: 65+ Years Completed [...] this encounter Medical Devices Implanted Type Area Parts Remover Device Identifier Shelf Expiration Date Model / Serial / Lot Kit Tined Lead - [id number] - [id number] Implanted:Qty: 1 on 05/11/2022 by Steve Burns MD at OR [facility] [employer] 08/12/2023 1201 / [id number] / Neurostimulator - [id number] - [id number] Implanted:Qty: 1 on 05/18/2022 by Steve Burns MD at OR [facility] Back [employer] 04/07/2024 1101 / [id number] / Patch Xenosure [id number] - [id number] Implanted:Qty: 1 on 07/19/2022 by Aveyr Betancourt MD [place] [facility] Right: Femoral Artery [facility] [id number] 02/13/2028 E0.8P8 / [id number] / [id number] documented as of this encounter Advance Directives [...] the patient have Health Care Power of Gettering Filament Machine Operator? No Code Status History Code Status [...] Directives occurred with: Not Discussed Care Teams Taker Off Drying Kiln Relationship Specialty Start Date End Date Miki Sanford MD [address] [place] [facility] [place] [address] PCP - General 02/10/03 documented as of this encounter
--- OUTSIDE RECORDS SUMMARY | 2023-12-13 15:26 | External Medical Summary | Summary of Care ---
Author Name Unknown Organization [facility] Address [address] [place] [address] Phone [phone] Care Team Providers Care Radiology Director Name Role Phone Praneeth Hennessy MD Primary Care Provider +1- [phone] Reason for Visit * Reason Onset Date Comments [facility]: Maintenance 11/13/2023 Encounter Details Date Type Department Care Team (Late st Contact Info) Description 11/13/2023 Telephone Care at Home [address], [place] [id number] Services, Scheduling [address] [place] [address] [facility]: Maintenance Allergies No known active allergiesdocumented as of this encounter (statuses as of 11/13/2023) Medications Medication Sig Dispensed Refills Start Date End Date Status WELLBUTRIN XL 300 MG PO [id number]:Depr essive disorder, not elsewhere classified One pill [...] the morning. 90 Tablet 3 09/16/2023 Active HYDROcodone-Acetamin ophen 5-325 MG Oral TabletIndications:Pr imary osteoarthritis of both knees Take 1-2 Tablets by mouth every 8 hours as needed for Pain, Mild, Pain, Moderate or Pain, Severe. 45 Tablet 0 09/30/2023 Active Rosuvastatin Calcium 20 MG Oral Tablet (Crestor) TAKE 1 TABLET BY MOUTH EVERYDAY AT BEDTIME 90 Tablet 2 10/01/2023 Active Eliquis 5 MG Oral Tablet (Apixaban) TAKE 1 TABLET BY MOUTH TWICE A DAY 180 Tablet 3 11/12/2023 Active documented as of this encounter (statuses [...] apnea 2014 Overview: Auto CPAP 6 cwp [facility] GERD (gastroesophageal reflux disease) 2 [...] (Pfizer) 03/02/2021,2021 Pneumococcal Conjugate Vacci ne, 20-valent ([id number]) 12/04/2022 Pneumococcal Polysaccharide PPV23 (Pneumovax) 10/16/2012 Seasonal [...] encounter Miscellaneous Notes * Telephone Encounter - Emelyn Rizvi OSA - 11/13/2023 3:29 PM EST Care At Home Outreach Call attempt: 1st Call Call result: Call Unsuccessful - Ineligible: Inactive [facility] Insurance MADHU Mann documented in this encounter Plan of Treatment Upcoming Encounters Date Type Department Care Team (Late st Contact Info) Description 11/22/2023 3:00 PM EST [facility] [address] [place] [address] Anne Rios PA-C [address] [place] [address] 12/19/2023 2:20 PM EST Office Visit [facility] [address] [place] [address] Praneeth Hennessy MD [address] [place] [address] 02/12/2024 1:00 PM EDT Office Visit [facility] [address] [place] [address] Anne Rios PA-C [address] [place] [address] 03/11/2024 10:00 AM EDT [facility] [address] [place] [phone] Jigna Hay CRNP [address] [place] [address] 09/16/2024 1:15 PM EDT Office Visit Urogynecology Estrell[facility] Forrester [address] [place] [address] Tiago Fox MD [address] [place] [address] Nurse Arron Forrester [address] [place] [address] Scheduled Procedures Name Priority Associated Diagnoses Date/Ti [...] 09/03/2019, Additional history exists GFR 08/30/2024 08/30/2023, 090 12/2021, 07/19/2022, Additional history exists Albumin/Creatinine Ratio 04/30/2025 04/30/2022 Diabetes Screening 08/30/2026 08/30/2023, 0 07/20/2022, 07/19/2022, Additional history exists Pap Smear Discontinued 05/01/2016, 04/18, 10/16/2012, Additional history exists LUNG CANCER SCREENING - USE SMARTSET 04772 Completed 07/10/2022 Pneumococcal Vaccine: 65+ Years Completed [...] this encounter Medical Devices Implanted Type Area Electric Blanket Wirer Device Identifier Shelf Expiration Date Model / Serial / Lot Kit Tined Lead - [id number] - [id number] Implanted:Qty: 1 on 05/11/2022 by Steve Burns MD at OR [facility] [employer] 08/12/2023 1201 / [id number] / Neurostimulator - [id number] - [id number] Implanted:Qty: 1 on 05/18/2022 by Steve Burns MD at OR [facility] Back [employer] 04/07/2024 1101 / [id number] / Patch Xenosure [id number] - [id number] Implanted:Qty: 1 on 07/19/2022 by Avery Betancourt MD [place] [facility] Right: Femoral Artery [employer] [id number] 02/13/2028 E0.8P8 / [id number] / [id number] documented as of this encounter Advance Directives [...] the patient have Health Care Power of Rf Test Engineer? No Code Status History Code Status Date Activated Date Inactivated Comments Full Code 05/18/2022 2:31 PM 05/18/2022 8:21 PM This or abhishek reflects the patients wishes and were consensually agreed upon. Full Code 05/11/2022 11:28 AM 05/11/2022 5:45 PM This order reflects the patients wishes and were consensually agreed upon. Question Answer Comments Discussion of Advance Directives occurred with: Not Discussed Care Teams Radiology Director Relationship Specialty Start Date End Date Praneeth Hennessy MD [address] [facility] [place] [address] PCP - General 02/10/03 documented as of this encounter
[2023-12-13] MEDS: ACETAMINOPHEN 500 MG TAB PO SCH ×2 (15:27→21:57)
[2023-12-13] MEDS: KETOROLAC TROMETHAMINE 15 MG/ML VIAL IV SCH ×2 (15:27→21:57)
[2023-12-13 15:33] VITALS: RESP 16
[2023-12-13] MEDS: DOCUSATE SODIUM 100 MG CAP PO SCH (20:03)
[2023-12-13] MEDS: APIXABAN 5 MG TABLET PO SCH (20:05)
[2023-12-13] MEDS: ceFAZolin 2000MG 2,000 MG/15 ML SYR IV SCH (20:05)
[2023-12-13] MEDS ORDERED: ROSUVASTATIN CALCIUM 20 MG TAB PO SCH (21:00)
[2023-12-13] MEDS ORDERED: SENNA 8.6 MG TAB PO SCH (21:00)
[2023-12-13] MEDS ORDERED: VENLAFAXINE HCL XR 150 MG CAPXR PO SCH (21:00)
[2023-12-13] MEDS ORDERED: TEMAZEPAM 15 MG CAPSULE PO SCH (21:00)
[2023-12-14] MEDS: KETOROLAC TROMETHAMINE 15 MG/ML VIAL IV SCH ×2 (03:34→10:21)
[2023-12-14] MEDS: ceFAZolin 2000MG 2,000 MG/15 ML SYR IV SCH (03:34)
[2023-12-14] MEDS: ACETAMINOPHEN 500 MG TAB PO SCH (06:24)
--- NOTE | 2023-12-14 06:59 | Orthopedic Progress Note ---
Date of Service December 14, 2023 Assessment & Plan (1) Status post reverse total replacement of right shoulder: Overall she is doing fairly well. She is not having much pain in the right shoulder. She will be seen by physical therapy today for ambulation and range of motion exercises. She can be discharged home later today. She will follow- up with orthopedics in 2 weeks. Subjective Niya was seen and examined at bedside this morning. Overall she is doing fairly well. She is not having much pain in the right shoulder. She has been up and ambulating to the bathroom. She has no complaints.. Review of Systems All systems reviewed & are unremarkable except as noted in HPI & below. Physical Exam On physical examination of the right shoulder, the dressing is clean and dry. She is wearing her sling as instructed. She has active motion of her hand and her wrist.. Results & Data Results & Data Laboratory Results . Diagnostic Findings Postoperative x-rays of the right shoulder show the prosthesis to be in anatomic alignment without any evidence of fracture complication, or loosening.. PG Care Time/CCT Total # of Minutes Spent Total Time Spent with Patient: Total time spent is greater than 50% in coordination of care (as documented) at patient's floor/unit and/or counseling patient: Coding Level of Care Code 77363 Post Operative Follow-Up Diagnoses Status post reverse total replacement of right shoulder Z96.611
--- NOTE | 2023-12-14 07:00 | Discharge Summary ---
Date of Service December 14, 2023 Admission HPI (Per Admitting) Niya is pleasant 68-year-old female who is well known to me. 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 X-rays show advanced arthropathy. She has trouble doing activities away from her body orup overhead. She has constant pain in her shoulder. She has failed years of conservative treatment. She would like to proceed with a right reverse shoulder arthroplasty. . Admission Exam (Per Admitting) On physical examination of right shoulder, she has decreased range of motion weakness throughout. She has pain over the glenohumeral joint line.. Principal Diagnosis Same as "Discharge Diagnosis" noted below under Discharge Instructions. Discharge Exam On physical examination of the right shoulder, the dressing is clean and dry. She is wearing her sling as instructed. She has active motion of her hand and her wrist.. Discharge Data Procedures Performed Operation Date: 12/13/23 11:55 Actual Procedures p Right Reverse Total Shoulder Arthroplasty(Right) - Adalid Rahman DO Ordered Studies 12/13/23 12:00 US - OR guided needle placemen Routine Hospital Course (1) Status post reverse total replacement of right shoulder: On December 13, 2023 Niya arrived at [facility] and underwent a right reverse shoulder replacement without complication. She had a general anesthetic and a right interscalene nerve block. Postoperatively she was placed in a sling and transferred to the general orthopedic floors. Her hospital course was uneventful. On postop day #1, her vital signs were stable and her pain was well-controlled. She was able to participate well with physical therapy doing ambulation and range of motion exercises. She was then discharged home. She will follow-up with orthopedics in 2 weeks. PG Care Time/CCT Total # of Minutes Spent Total Time Spent with Patient: Total time spent is greater than 50% in coordination of care (as documented) at patient's floor/unit and/or counseling patient: Discharge Plan Discharge Items Patient Disposition: Home - Self-Care Reason For Visit: Degenerative Joint Disease Right Shoulder Discharge Diagnosis: Right reverse shoulder replacement Activity: Per Instructions section Non-emergency contact: Surgeon Call non-emergency contact if: your wound has increased redness and your wound has increased drainage Follow-up/Referrals: Praneeth Hennessy MD [Primary Care Provider] - Diet: Regular Addtl Attending Provider Instructions: Activity and Therapy Recommendations: * If you are using [facility] then therapy will be provided at your home until they feel you have accomplished all of your goals. * If you are using [facility] then Physical Therapy will be provided until they feel you are ready to start Outpatient Physical Therapy. * If you are not using home therapy then Outpatient Physical Therapy should start about 3-5 days from your day of surgery. Therapy will last about 8-12 weeks * Wear your sling for 3 weeks, unless otherwise instructed. You may remove your sling to shower and to dress, but otherwise, you should be in your sling at all times, including while sleeping * The shoulder replacement is very stable and you can use your hand while in the sling * You were shown a series of exercises in the hospital. Do these exercises daily including the exercises you were shown in physical therapy. Medications: * Narcotic You will likely be sent home from the hospital with a prescription for the narcotic pain medication that worked best throughout your stay. * Cefadroxil -take the antibiotic twice a day for 10 days to help prevent infection. * Other medications may be prescribed for specific circumstances. If you have any questions, please call the office at . * Resume previous home medications unless otherwise instructed Dressing Care: Leave the Silverlon dressing in place for 7 days. After 7 days you may remove the dressing. If the incision is not draining then you may leave the reinaldo open to air. If there is a little bit of drainage or if the reinaldo are getting stuck on your clothing then cover the incision with a dry dressing. The reinaldo will be removed at your 2 week follow-up appointment. Showering: You may shower with the Silverlon dressing in place. Do not let the shower spray hit the dressing directly. Pat the Silverlon dressing dry. If the dressing becomes wet underneath, then simply remove the dressing. Keep the incision dry until you are 7 days out from the day of surgery. After 7 days you may remove the Silverlon dressing and shower with the reinaldo exposed. Let soapy water run over the reinaldo and pat them dry. Do not scrub or soak the incision. Things To Watch For: * Drainage from the incision site that occurs more than one week after your surgery. * Increased redness at the incision site. * Fever above 102 degrees Fahrenheit. * Unusual chest pain or shortness of breath. * Call [facility] at with any of the above problems Follow-Up Visit: Follow-up with Dr. Rahman's PA (Adalid Rangel) 2-3 weeks after your day of surgery. He will remove your reinaldo and answer any questions. If you have any additional questions or concerns, Dr Rahman is usually in the office at the same time and will be available An appointment was probably scheduled when you signed-up for surgery in the office. If you have any questions call More detailed instructions as well as Frequently Asked Questions were provided in a folder by our office when you signed-up for surgery. Please review these instructions when you get home. If you have any further questions or concerns, please feel free to call the office at [phone] Pending Studies at Discharge: No Stand-Alone Forms: My [facility] Medications and DC Order Prescriptions: New oxycodone 5 mg Tablet 5 mg PO Q4H PRN (Reason: pain) Qty: 30 0RF cefadroxil 500 mg capsule 500 mg PO BID 10 Days Qty: 20 0RF Continued valacyclovir 1 gram tablet 2,000 mg PO Q12H PRN (Reason: Cold Sores) venlafaxine 150 mg capsule,extended release 24hr 150 mg PO HS bupropion HCl 300 mg tablet extended release 24 hr 300 mg PO QAM metoprolol succinate 50 mg Tablet Extended Release 24 Hr 50 mg PO QAM pantoprazole 20 mg Tablet,Delayed Release (Dr/Ec) 20 mg PO QAM rosuvastatin 20 mg Tablet 20 mg PO HS cholecalciferol (vitamin D3) [Vitamin D3] 50 mcg (2,000 unit) Capsule 50 mcg PO QAM Eliquis 5 mg Tablet 5 mg PO BID aspirin 81 mg Tablet 81 mg PO QAM oxybutynin chloride [Ditropan XL] 15 mg Tablet Extended Release 24hr 15 mg PO QAM temazepam 30 mg capsule 30 mg PO HS amoxicillin 500 mg tablet 2,000 mg PO UD PRN (Reason: dental procedures) Rx Instructions: 4 tabs 1 hour prior to procedure Discontinued oxycodone-acetaminophen [Percocet] 5-325 mg tablet 1 tab PO Q6H PRN (Reason: pain) Qty: 20 0RF Discharge Orders: Discharge Order (Routine); Ordered 12/14/23 Ordered By: Adalid Rahman Admission Data Admit Date/Time: 12/13/23 13:11 Attending Provider: Adalid Rahman Admit Provider: Adalid Rahman Primary Care Provider: Praneeth Hennessy
[2023-12-14 07:57] VITALS: BP 99/59; TEMP 97.9
[2023-12-14] MEDS ORDERED: dexAMETHasone 4 MG TAB PO SCH (08:00)
[2023-12-14] MEDS: APIXABAN 5 MG TABLET PO SCH (08:01)
[2023-12-14] MEDS: DOCUSATE SODIUM 100 MG CAP PO SCH (08:03)
[2023-12-14 08:14] VITALS: PULSE 80
[2023-12-14] MEDS ORDERED: buPROPion XL 300 MG TABCR PO SCH (09:00)
[2023-12-14] MEDS ORDERED: OXYBUTYNIN CHLORIDE XL 5 MG TABCR PO SCH (09:00)
[2023-12-14] MEDS ORDERED: METOPROLOL SUCC 50MG EXT REL TAB PO SCH (09:00)
[2023-12-14] MEDS ORDERED: ASPIRIN 81 MG ECTAB PO SCH (09:00)
[2023-12-14] MEDS ORDERED: MULTIVITAMIN TAB PO SCH (09:00)
[2023-12-14] MEDS ORDERED: PANTOprazole 40 MG TAB PO SCH (09:00)
[2023-12-14 13:14] VITALS: O2SAT 88
== END 2023-12-14 11:15 | disposition home or self-care (01) ==
LOC: 3W 10:26 → ASU 10:26